=== PATIENT | female | born 1940 | race Caucasian/White ===

== ENCOUNTER 2016-08-11 11:29 | Emergency (ER) | payer MEDICARE, MEDICAID ==
[~2016-08-11] VITALS: Ht 162.6 cm; Wt 68.0 kg
[~2016-08-11 11:29] MED LIST: ALBUTEROL-200 PUFFS/ IH; ALBUTEROL2.5 MG/NEB IN; AMIODARONE 200200 MG PO; AMIODARONE HCL400 MG PO; AMOXICILLIN500 M2 PO; AZITHROMYCIN250 MG PO; AZITHROMYCIN500 MG PO; BRILINTA90 M1 PO; CEFDINIR 300MG300 MG PO; CHEWABLE ASPIRI81 MG PO; CIPRO 500MG TA500 MG PO; DIAZEPAM2 MG PO; DIAZEPAM5 M1 PO; DIAZEPAM5 MG PO; FLEXERIL10 MG PO; HYDROCHLOROTHIA25 M1 PO; IBU-8800 MG PO; KEFLEX 500MG.500 MG PO; LIPITOR80 MG PO; LISINOPRIL 20MG20 MG PO; LODINE400 MG PO; LORTAB 5/500 501 TAB PO; MEDROL 4MG. DOSE4 MG PO; NORVASC 10MG. T10 MG PO; PREDNISONE 20MG20 MG PO; PREDNISONE 5MG.5 MG PO; PROAIR HFA0.09 MG/AC IH; SEPTRA DS 800 M1 TAB PO; STERAPRED DS10 MG PO; TAGAMET PO; TESSALON PERLE100 M1 PO; TESSALON PERLE100 MG PO; TUSSIONEX PENN115 ML PO; ULTRAM 50 MG TA50 MG PO; XARELTO20 MG PO; ZITHROMAX Z PA250 MG PO; ZITHROMAX Z-PA250 M2 PO; ZYRTEC 10MG TAB10 MG PO; ZYRTEC10 MG PO; [UNRECOGNIZED DRUG - OTHER] PO
--- NOTE | 2016-08-11 11:39 | Emergency Room Report ---
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 N Clinical Suspician of Infection? N Mental Status: 1 - Regular (Normal Baseline) Sepsis Risk:Low Sepsis Risk Have you (or family members/close friends) recently traveled outside the [place]? N If Yes, where/when: Have you had exposure to infectious disease within the past month? N TB? Other? Specify: Comment The patient states she's been sick for 3-4 days. She has a nonproductive cough and congestion. She feels short of air. She has chest pain in her anterior chest which she describes as a soreness. She thinks it is just sore from "inflammation " but she says the last time that she thought that she was diagnosed with a heart attack. This was about 6 months ago when she received a cardiac stent. At that time she also was diagnosed with a lung nodule and has since had a RIGHT upper lobectomy. She also has a prior history of having one half of her LEFT lung removed years ago for lung cancer. Also has a history of a fib. Ilnness started with rhinorrhea, nosebleeds, sore throat, cough. Chest has been sore 3-4 days. ALLERGIES Coded Allergies: aspirin (NA-NAUSEA/VOMITING--- STATES COATED PILLS ARE OKAY 06/07/16) levofloxacin (From LEVAQUIN) (MAKES SICK 06/07/16) tetracycline (SWELLING, ITCHING 06/07/16) Home Medications Active Scripts CEFDINIR (Cefdinir) 300 MG PO BID #20 CAP Prov: 06/07/16 Diazepam (Diazepam 5MG) 5 MG PO BIDP PRN ANXIETY #60 TAB Ref 2 Prov: 03/31/16 Rivaroxaban (Xarelto) 20 MG PO DAILY #30 TAB Ref 11 Prov: 03/31/16 Reported Medications LISINOPRIL (Lisinopril) 20 MG PO BID Cetirizine Hcl (All Day Allergy) 10 MG PO DAILY Atorvastatin Calcium (Atorvastatin) 80 MG PO QHS Ticagrelor (Brilinta) 90 MG PO BID AMLODIPINE BESYLATE (Norvasc) 10 MG PO DAILY Amiodarone Hcl (Amiodarone 200MG) 200 MG PO BID Albuterol Sulfate (Proair Hfa) 1 PUFF IH Q6HP PRN ASTHMA #85 History Medical History General CAD? Yes Angina: No AL: No Hypertension? Yes Hyperlipidemia? No CHF? No DVT? No PE? No COPD? Yes Asthma? Yes Anemia? No GERD? Yes Gastric ulcers? No GI Bleed? No Hernia? No Thyroid Problems? No Hypothyroidism? No CVA? No Seizures? No Diabetes? No Renal Insuffiency? No End Stage Renal Disease? No UTI? No Stones? No BPH? No GB Disease: Yes Nephritic Syndrome? No Asplenia? No Hepatitis? No Sickle Cell Disease? No Arthritis? Yes Migraines? No Cataracts? No Glaucoma? No MRSA? No HIV? No TB? No Anxiety? No Depression? No Cancer? Yes Site: LUNG More? No Immunization Hx DT/Tetanus 1-4 YRS Flu THIS YR Pneumonia Received In Past Surgical Hx Previous Surgery?Y D & C CYST REMOVAL 08/03 LEFT LUNG REMOVE GALLBLADDER LEFT ARM SURGERY-METAL PL HEART STENTS 12/15 RIGHT UPPER LOBECTOMY Family History Family Hx Diabetes Yes CAD No Hypertension No Hyperlipidemia No Cancer Yes TB No Social History Smoking Hx Smoker: Former Smoker Tobacco: No Type Cigarettes Packs/day N/A Alcohol Alcohol: No Review of Systems All Other Systems Reviewed and Negative Constitutional denies fever ENT nose discharge, epistaxis, throat pain. Respiratory cough, shortness of breath Cardiovascular chest pain Physical Exam Vital Signs Vital Signs Date Time Temp Pulse Resp B/P Pulse O2 O2 Flow FiO2 Ox Delivery Rate 08/11 1132 98.5 74 20 157/64 97 General Appearance normal appearance, WD/WN Eye Exam - bilateral eye normal exam, bilateral eye PERRL, bilateral eye EOMI Ear, Nose, Throat hearing grossly normal, normal ENT inspection Neck normal inspection, non-tender, supple, full range of motion Respiratory Status Yes: trachea midline, chest symmetrical, non tender chest, non productive cough. No: respiratory distress. Lung Sounds bilateral: normal breath sounds, lungs clear. Cardiovascular normal exam, regular rate/rhythm, no peripheral edema, no gallop, no JVD, no murmur, no rub, normal peripheral pulses Peripheral Pulses Pulses normal Yes Gastrointestinal normal bowel sounds, normal exam, non tender, soft, no organomegaly Back normal inspection, no CVA tenderness, no vertebral tenderness Extremities non-tender, normal range of motion, normal inspection Neurologic alert, stringer up soldering machine II-XII nml as tested, normal exam, oriented x 3 Mental status normal mood/affect Skin intact, normal color, warm/dry Medical Decision Making LABS/Meds/Orders Pt receiving controlled substance in ED? No Results/Orders Laboratory Tests 08/11/16 1200: Sodium 143, Potassium 3.5, Chloride 106, Carbon Dioxide 28, BUN 11, Creatinine 1.0, Estimated Creat Clear 52, Estimated GFR (MDRD) 54 L, Glucose 144 H, Calcium 8.7, Total Bilirubin 0.4, AST 19, ALT 26, Alkaline Phosphatase 132 H, Troponin I < 0.02, Total Protein 7.2, Albumin 3.9, Globulin 3.3 H, Albumin/ Globulin Ratio 1.2, WBC 6.2, RBC 3.84 L, Hgb 11.0 L, Hct 34.2 L, MCV 89.1, RDW 15.7, Plt Count 234, MPV 9.4, Gran % 73.9, Gran # 4.6, Lymphocytes % 19.2, Monocytes % 5.3, Eosinophils % 1.1, Basophils % 0.5, Lymphocytes # 1.2, Monocytes # 0.3, Eosinophils # 0.1, Basophils # 0.0, PUBS MCHC 32.3, MCH 28.8 Current Medication Orders Sig/Mary Start time Last Medication Dose Route Stop Time Status Admin Sodium Chloride 10 ML PRN PRN 08/11 1200 AC IV 08/12 1151 Orders Procedure Date/time Status ELECTROCARDIOGRAM REQUEST 08/11 1151 Active IV SALINE LOCK 08/11 1151 Active TROPONIN I 08/11 1151 Complete CBC WITH AUTO DIFF 08/11 1151 Complete CHEM 12 PROFILE 08/11 1151 Complete CHEST(2 VIEWS-NOT PORTABLE) 08/11 1136 Active CM/EKG CM/EKG Comments EKG interpreted by Kevin De La Rosa MD: Rhythm: sinus Rate: 64 [place]: normal Ectopy: none Conduction: Incomplete RIGHT bundle-branch block, prolonged QT interval ST Segment Changes: none T Wave Changes: Nonspecific Q Waves: none No change from prior electrocardiogram No evidence of acute ischemia or injury XRAY/CT/US XRAY/CT/US XRAY chest Comment X-ray interpreted by Kevin De La Rosa M.D.: Volume loss RIGHT lung. No infiltrates seen. Departure Departure Disposition DC Home or Self Care(routine) Clinical Impression Primary Impression: Acute bronchitis Qualifiers: Bronchitis organism: unspecified organism Qualified Code: J20.9 - Acute bronchitis, unspecified Condition STABLE Referrals Gareth HUNTER,A.C. (Family) Patient Instructions DI for Acute Bronchitis Prescriptions Current Visit Scripts Azithromycin (Zithromycin (Z-RADU) 250MG Tab) 250 MG PO DAILY #6 TAB TAKE TWO (2) TABLETS ON DAY 1, THEN ONE (1) TABLET DAY #2 THRU #5 ED Critical Care Critical Care No at [id number]
[2016-08-11 12:09] LABS: LYMPH # 1.2 K/mm3 (0.7-4.5); LYMPH % 19.2 % (10-50.0)
[2016-08-11 12:23] LABS: BUN 11 mg/dL (7-18); GFR (ESTIMATED) 54 ML/MIN (59-)
[2016-08-11] MEDS ORDERED: ZITHROMAX Z PA250 MG PO (12:29)
[2016-08-11 12:34] VITALS: BP 150/64
--- NOTE | 2016-08-11 14:03 | RADIOLOGY REPORT PS360 ---
CHEST(2 VIEWS-NOT PORTABLE) HISTORY: COUGH,SOA COMPARISON: 06/07/2016 FINDINGS: COPD. Elevated right hemidiaphragm. Old left-sided rib fractures. Postsurgical changes left and right perihilar region. No lobar consolidation or collapse. No acute bony anomalies. IMPRESSION: Postsurgical change with COPD, no acute finding..
[2016-10-21] MEDS ORDERED: LEADER OMEPRAZO20 MG PO (06:50)
== END 2016-08-11 12:34 | disposition home or self-care (01) ==
LOC: ER 11:29
PROVIDERS: Emergency Medicine
DX: J20.9 Acute bronchitis, unspecified (principal); Z87.891 Personal history of nicotine dependence; K21.9 Gastro-esophageal reflux disease without esophagitis; I10 Essential (primary) hypertension; I48.91 Unspecified atrial fibrillation; J44.0 Chronic obstructive pulmonary disease with (acute) lower respiratory infection; Z85.118 Personal history of other malignant neoplasm of bronchus and lung

== ENCOUNTER 2017-01-18 09:05 | Emergency (ER) | payer MEDICARE ==
[~2017-01-18] VITALS: Ht 162.6 cm; Wt 70.3 kg
[~2017-01-18 09:05] MED LIST changes: +BACTRIM DS 8001 TA1 PO; +LEADER OMEPRAZO20 MG PO; +PYRIDIUM200 M2 PO
[2017-01-18 09:21] LABS: HEMOGLOBIN 11.8 g/dL (12.2-16.2); LYMPH # 1.6 K/mm3 (0.7-4.5)
--- NOTE | 2017-01-18 09:23 | Emergency Room Report ---
History of Present Illness Time Seen by MD Slater Presenting Problem in Triage Pt arrived:Walked Presenting Problem:PT REPORTS CHEST PAIN X3 DAYS. PT REPORTS SOA WITH PAIN IN CHEST WHEN BREATHING. 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 N Clinical Suspician of Infection? N Mental Status: 1 - Regular (Normal Baseline) Sepsis Risk:Low Sepsis Risk Have you (or family members/close friends) recently traveled outside the [place]? N If Yes, where/when: Have you had exposure to infectious disease within the past month? N TB? Other? Specify: Hx COPD, having pleuritic pain with inspiration for last three days; hx lung cancer from several years ago; no hemoptysis; no cough; no sputum; no calf pain; saw Dr. Price last week and placed on new antihypertensive agent. No syncope or palpitations. ALLERGIES Coded Allergies: aspirin (NA-NAUSEA/VOMITING--- STATES COATED PILLS ARE OKAY 06/07/16) levofloxacin (From LEVAQUIN) (MAKES SICK 06/07/16) tetracycline (SWELLING, ITCHING 06/07/16) Home Medications Active Scripts SULFAMETHOXAZOLE W/TRIMETHOPRI (Bactrim Ds Tab) 1 TABLET PO BID #10 TAB Prov: 01/14/17 Phenazopyridine HCl (Pyridium) 200 MG PO TIDP PRN dysuria #6 TAB Prov: 01/14/17 Diazepam (Diazepam 5MG) 5 MG PO BIDP PRN ANXIETY #60 TAB Ref 2 Prov: 03/31/16 Omeprazole 20 MG PO DAILY #30 TCP Ref 2 Prov: 10/21/16 Reported Medications Albuterol Sulfate (Proair Hfa) 1-2 PUFF IH Q6HP PRN ASTHMA #85 GM Amiodarone Hcl (Amiodarone 200MG) 200 MG PO DAILY LISINOPRIL (Lisinopril) 20 MG PO BID Atorvastatin Calcium (Atorvastatin) 80 MG PO QHS AMLODIPINE BESYLATE (Norvasc) 10 MG PO DAILY History Medical History General CAD? Yes Angina: No MA: Yes Hypertension? Yes Hyperlipidemia? No CHF? No DVT? No PE? No COPD? Yes Asthma? Yes Anemia? Yes GERD? Yes Gastric ulcers? No GI Bleed? No Hernia? No Thyroid Problems? No Hypothyroidism? No CVA? No Seizures? No Diabetes? No Renal Insuffiency? No End Stage Renal Disease? No UTI? No Stones? No BPH? No GB Disease: Yes Nephritic Syndrome? No Asplenia? No Hepatitis? No Sickle Cell Disease? No Arthritis? Yes Migraines? No Cataracts? No Glaucoma? No MRSA? No HIV? No TB? No Anxiety? No Depression? No Cancer? Yes Site: LUNG More? Yes Additional hx: afib Immunization Hx DT/Tetanus Unknown Flu 2015-FSN Pneumonia Received In Past Surgical Hx Previous Surgery?Y D & C CYST REMOVAL 08/03 LEFT LUNG REMOVE GALLBLADDER LEFT ARM SURGERY-METAL PL HEART STENTS 12/15 RIGHT UPPER LOBECTOMY Family History Family Hx Diabetes Yes CAD Yes Hypertension Yes Hyperlipidemia Yes Cancer No TB No Social History Smoking Hx Smoker: Former Smoker Tobacco: No Packs/day < 1 Pack Alcohol Alcohol: No Review of Systems All Other Systems Reviewed and Negative Respiratory see HPI Cardiovascular see HPI Physical Exam Vital Signs Vital Signs Date Time Temp Pulse Resp B/P Pulse O2 O2 Flow FiO2 Ox Delivery Rate 01/18 0906 60 18 116/73 98 2 01/18 0905 97 General Appearance normal appearance, WD/WN, no apparent distress Eye Exam - bilateral eye normal exam, bilateral eye PERRL, bilateral eye EOMI Neck normal inspection, non-tender, supple, full range of motion Respiratory Status Yes: trachea midline, chest symmetrical, non tender chest, tender on palpation ( latissimus R pos trigger point). No: respiratory distress, use of accessory muscles, pain on inspiration, pain on expiration, productive cough, non productive cough. Lung Sounds bilateral: normal breath sounds, lungs clear. Cardiovascular normal exam, regular rate/rhythm, no peripheral edema, no gallop, no JVD, no murmur, no rub, normal peripheral pulses Gastrointestinal normal bowel sounds, normal exam, non tender, soft, no organomegaly, no pulsatile mass, no guarding, no rebound Extremities non-tender, normal range of motion, normal inspection, normal capillary refill, no calf tenderness, no pedal edema Neurologic alert, normal exam, no motor/sensory deficits, oriented x 3 Skin intact, normal color Medical Decision Making LABS/Meds/Orders Pt receiving controlled substance in ED? No Results/Orders Laboratory Tests 01/18/17 0900: Sodium 142, Potassium 4.1, Chloride 105, Carbon Dioxide 29, BUN 16, Creatinine 1.2 H, Estimated Creat Clear 45 L, Estimated GFR (MDRD) 44 L, Glucose 106, Calcium 9.3, Total Bilirubin 0.6, AST 32, ALT 56, Alkaline Phosphatase 134 H, Creatine Kinase 109, CK and CKMB Interp 0.7, Troponin I < 0.02, Total Protein 7.3, Albumin 4.2, Globulin 3.1, Albumin/Globulin Ratio 1.4, D-Dimer 156, WBC 6.4 , RBC 3.88 L, Hgb 11.8 L, Hct 36.6 L, MCV 94.2, RDW 14.9, Plt Count 224, MPV 7.5, Gran % 66.6, Gran # 4.3, Lymphocytes % 25.0, Monocytes % 6.8, Eosinophils % 1.4, Basophils % 0.3, Lymphocytes # 1.6, Monocytes # 0.4, Eosinophils # 0.1, Basophils # 0.0, PUBS MCHC 32.3, MCH 30.4 Current Medication Orders Sig/Mary Start time Last Medication Dose Route Stop Time Status Admin Acetaminophen 650 MG ONCE ONE 01/18 1015 AC PO 01/18 1016 Acetaminophen 650 MG ONCE ONE 01/18 0945 DC PO 01/18 0946 Nitroglycerin 0.4 MG .Q5 MIN PRN 01/18 0915 AC SL Sodium Chloride 10 ML PRN PRN 01/18 0915 AC IV 01/19 0915 Orders Procedure Date/time Status D-DIMER 01/18 0928 Complete ELECTROCARDIOGRAM REQUEST 01/18 0916 Active IV SALINE LOCK 01/18 0916 Active OXYGEN PER NURSE 01/18 0916 Active EXTERMINATION SUPERVISOR 01/18 0916 Active TROPONIN I 01/18 0916 Complete CPK 01/18 0916 Complete COMPLETE METABOLIC PANEL 01/18 0916 Complete CKMB 01/18 0916 Complete CBC WITH AUTO DIFF 01/18 0916 Complete 12 LEAD EKG-FRANKI (INITIAL) 01/18 0915 Active CM/EKG CM/EKG EKG rate, NSR, rhythm, no evid. of ischemic chgs, no ectopy, normal QRS, normal WI, normal EKG, compared w/(date of old) (01/14/17 no chg old Q ant) XRAY/CT/US XRAY/CT/US Xray Results chronic changes seen prior 07/19/16 no acute findings Pulmonary Embolism Score WELL'S CRITERIA FOR PE WELL'S CRITERIA FOR PE Response Value Clinical signs/symptoms of DVT NO 0 PE is #1 diagnosis or equally likely NO 0 Heart rate is > 100 NO 0 Immobile at least 3 days, or surgery in past 4 wks NO 0 Previously, obj. diagnosed PE or DVT NO 0 Hemoptysis NO 0 Malignancy w/Rx within 6mo, or palliative NO 0 Total 0 Patient's PE Risk <1pt=LO RISK (<3%) Departure Departure Time of Disposition 1012 Disposition DC Home or Self Care(routine) Clinical Impression Primary Impression: Pleurisy Condition STABLE Referrals Porfirio Trujillo MD (Family) Patient Instructions Pleurisy Additional Instructions See Dr. Trujillo in one day for follow up, Tylenol as needed. Discharge Counseling Counseled pt/family regarding diagnosis, test results, medications/RX, home care, follow up needs ED Critical Care Critical Care No at 1013
[2017-01-18 09:46] LABS: BUN 16 mg/dL (7-18)
[2017-01-18 09:48] LABS: GFR (ESTIMATED) 44 ML/MIN (59-)
--- OUTSIDE RECORDS SUMMARY | 2017-01-18 10:16 | External Medical Summary Rpt ---
Author Author , Organization [employer] Address Unknown Phone Unavailable Care Team Providers Care Storage Garage Manager Name Role Phone SLAVA EDW, Unavailable Unavailable SLAVA EDW ISLAM Unavailable Unavailable [facility]ARDI[facility]ACIC SURGI, ISL[facility] Unavailable Unavailable MEDICAL GROUP, [facility] ISLAM PULMONARY & Unavailable Unavailable CRITICAL, [facility] BENSEMA MAR, BENSEMA Unavailable Unavailable MAR NAZ CHILDS Unavailable Unavailable PANKAJ CHILDS, Unavailable Unavailable PANKAJ CHILDS [facility] Unavailable [facility]available [facility], [facility] BARRERA, BARRERA Unavailable Unavailable BARRERA ALL, BARERRA ALL Unavailable Unavailable BREEDING SEAN, Unavailable Unavailable BREEDING SEAN [facility] Unavailable Unavailable SERVICE, [facility] C PAULO SAMAYOA MD Unavailable Unavailable PSC, C PAULO SAMAYOA MD PSC ADRIANNE ESCALANTE, Unavailable Unavailable ADRIANNE ESCALANTE [facility] Unavailable Unavailable ANESTHESIA, [facility] Unavailable Unavailable [facility]OC, [facility] CLIF MENEZES Unavailable Unavailable CHIPPS KRIS & Unavailable Unavailable DUBILIER, [facility] OF Unavailable Unavailable [facility], [facility] Johan ARANDA COOPER, Unavailable Unavailable Johan FRANCOXIOMY, XIOMY Unavailable Unavailable XIOMY ARLETTE, Unavailable Unavailable XIOMY ARLETTE XIOMY, MAURY, Unavailable Unavailable XIOMY, MAURY UMBERTO GAR, UMBERTO GAR Unavailable Unavailable [facility] Unavailable Unavailable [facility], [facility] [place] [facility] Unavailable [place]available [place] ALLAN HEREDIA MD, Unavailable Unavailable ALLAN HEREDIA MD BARRERA MAR, BARRERA MAR Unavailable Unavailable JR ROJAS FULLER, Unavailable Unavailable ANKUR DANIELSON Unavailable Unavailable ANKUR BOY, ANKUR Unavailable Unavailable BOY ANTONI AQUINO, Unavailable Unavailable ANTONI AQUINO [facility] Unavailable Unavailable [place], [facility] Unavailable Unavailable [place], [facility] Unavailable Unavailable INC, [facility] Unavailable Unavailable HOSPITAL P, [facility] DELMIS LÓPEZ HARVEY, Unavailable Unavailable DELMIS DAMON JAVIER, DAMON JAVIER Unavailable Unavailable DAMON JAVIER, DAMON JAVIER Unavailable Unavailable DAMON, TIM A, Unavailable Unavailable DAMON, TIM A [facility], Unavailable Unavailable [facility] NANI SILVIA, Unavailable Unavailable NANI SILVIA ROBIN, ROBIN Unavailable Unavailable IMAM MOH, IMAM MOH Unavailable Unavailable JAVON CESAR, JAVON Unavailable Unavailable CESAR TERRELL ELYSSA, TERRELL Unavailable Unavailable ELYSSA [facility], Unavailable Unavailable [facility] FRANKI ROSS, FRANKI ROSS Unavailable Unavailable SHAWN DOAN E, Unavailable Unavailable SHAWN DOAN E Capri Buckley MD, Unavailable Unavailable Capri Buckley MD [facility] Unavailable Unavailable SERVICES, [facility], Unavailable Unavailable [facility], Unavailable Unavailable PLL[facility], [facility] Unavailable Unavailable LAB, [facility] Unavailable Unavailable LAB, [facility] PICKLESIMER JR LAVELL, Unavailable Unavailable PICKLESIMER JR LAVELL MAURICE, MAURICE Unavailable Unavailable RENUSCH, RENUSCH Unavailable Unavailable RICE THO, RICE THO Unavailable Unavailable SCHULSTAD SAMANTHA, Unavailable Unavailable SCHULSTAD SAMANTHA MELANIE, MELANIE Unavailable Unavailable MELANIE MAT, Unavailable Unavailable MELANIE MAT GABBY MCKEON Unavailable Unavailable OSULLIVAN ADA, OSULLIVAN ADA Unavailable Unavailable SOKAN BAB, SOKAN BAB Unavailable Unavailable SOKAN, TRISTA O, Unavailable Unavailable SOKAN, TRISTA O [facility] Un[facility], [facility] Unavailable Un[facility], [facility] Unavailable Unavailable [facility], [facility] Unavailable Unavailable [facility], [facility] Unavailable Unavailable [facility], [facility] SOTINGEANU PEYTON, Unavailable Unavailable SOTINGEANU PEYTON CHUNG DON, Unavailable Unavailable CHUNG DON CHUNG DON, Unavailable Unavailable CHUNG DON CHUNG, DON R, Unavailable Unavailable JULIET DON R KERI GUERRERO, Unavailable Unavailable NINI SWANSON III, Unavailable Unavailable NINI ARIZMENDI III [facility], Unavailable Unavailable [facility] Purpose Continuity of Care Document - 08-18-2007 through 2016 Problems Code Diagnosis DOS Provider Status 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 [facility]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 D62 ACUTE 11-10-2016 [facility] POSTHEMORRH PHYSICIANS AGIC ANEMIA GROUP I4891 UNSPECIFIED 11-10-2016 [facility] ATRIAL PHYSICIANS FIBRILLATIO GROUP N K921 MELENA 11-10-2016 [facility] PHYSICIANS GROUP Z1211 ENCOUNTER 11-10-2016 [facility] SCREENING PHYSICIANS MALIGNANT GROUP NEOPLASM OF COLON K2990 GASTRODUODE 10-28-2016 [facility] NITIS PHYSICIANS UNSPECIFIED GROUP WITHOUT BLEEDING R911 SOLITARY 10-27-2016 [facility] PULMONARY HOME NODULE MEDICAL EQUIPME K922 GASTROINTES 10-21-2016 [place] [facility] HEMORRHAGE IMAGING ASS UNSPECIFIED I480 PAROXYSMAL 10-20-2016 [facility] P N Z7901 FDC 10-20-2016 [facility] CURRENT USE [facility] P ANTICOAGULA NTS Z955 PRESENCE OF 10-20-2016 [facility] P IMPLANT & GRAFT 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, ANEMIA SEC PLLC TO BLOOD LOSS CHRONIC 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 K2980 DUODENITIS 10-17-2016 [facility] WITHOUT [facility] BLEEDING INC K449 DIAPHRAGMAT 10-17-2016 [facility] HERNIA [facility] W/O INC OBSTRUCTION OR GANGRENE K5730 DIVERTICULO 10-17-2016 [place] SIS LG MEDICAL INTEST W/O IMAGING ASS PERF/ABSC W/O BLEED R109 UNSPECIFIED 10-17-2016 [place] ABDOMINAL MEDICAL PAIN IMAGING ASS R0602 SHORTNESS 09-02-2016 [facility] OF BREATH [facility] INC R079 CHEST PAIN 09-02-2016 [facility] UNSPECIFIED [facility] INC E785 HYPERLIPIDE 08-24-2016 [facility] MORENA PHYSICIANS UNSPECIFIED GROUP I10 ESSENTIAL 08-24-2016 [facility] PRIMARY PHYSICIANS HYPERTENSIO GROUP N J449 CHRONIC 08-24-2016 [facility] OBSTRUCTIVE PHYSICIANS PULMONARY GROUP DISEASE UNS C3411 MALIGNANT 08-22-2016 [facility] NEOPLASM [facility] UPPER LOBE INC RT BRONCHUS/DELFINA NG R072 PRECORDIAL 08-22-2016 [facility] PAIN PHYSICIANS, PLLC [id number] PERSONAL HX 08-22-2016 [facility] MEDICAL NEOPLASM IMAGING ASS BRONCHUS & LUNG 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 LUNG MEDICAL GROUP J209 ACUTE 08-11-2016 [facility] BRONCHITIS PHYSICIANS, UNSPECIFIED PLLC J440 COPD WITH 08-11-2016 [facility] ACUTE LOWER [facility] INC RESPIRATORY INFECTION K219 GASTRO-ESOP 08-11-2016 [facility] REFLUX [facility] P WITHOUT ESOPHAGITIS R05 COUGH 08-11-2016 [place] [facility] I119 HYPERTENSIV 07-14-2016 [facility] E HEART PHYSICIANS DISEASE GROUP WITHOUT HEART FAILURE J439 EMPHYSEMA 07-09-2016 [place] UNSPECIFIED MEDICAL IMAGING ASS D649 ANEMIA 06-07-2016 [facility] UNSPECIFIED PHYSICIANS, PLLC E876 HYPOKALEMIA 06-07-2016 [facility] N19 UNSPECIFIED 06-07-2016 [facility] FAILURE INC N3001 ACUTE 06-07-2016 [facility] CYSTITIS PHYSICIANS, WITH PLLC HEMATURIA R319 HEMATURIA 06-07-2016 [facility] UNSPECIFIED PHYSICIANS, PLLC 372.00 372.00 [facility] 491.22 491.22 08-15-2013 [facility] CHRONIC [facility] BRONCHITIS WITH ACUTE BRONCHITIS 401.9 401.9 11-10-2012 [facility] NOS Hospital 461.9 461.9 ACUTE 11-10-2012 [place] SINUSITIS [facility] Hospital 496 496 CHR 11-10-2012 [facility] OBSTRUCT Hospital NEC 4659 ACUTE URIS 11-08-2010 [facility] OF DON UNSPECIFIED SITE 4660 ACUTE 11-08-2010 [facility] BRONCHITIS DON 08523 OTHER 09-30-2010 [facility] SPECIFIED DON DISORDERS OF URINARY TRACT 19283 CHRONIC 09-30-2010 [facility] FATIGUE DON SYNDROME 15646 ASTHMA, 08-26-2010 [facility] UNSPECIFIED HOME MED , EQUIP. L UNSPECIFIED STATUS 462 ACUTE 08-23-2010 [facility] PHARYNGITIS DON 7862 COUGH 08-23-2010 [facility] DON V5831 ENCOUNTER 07-23-2010 [facility] CHANGE/CORAZON DON OMAR SURGICAL WOUND DRESSING 4019 UNSPECIFIED 07-17-2010 C PAULO ELLIS MD PSC N 81497 CALCU 07-17-2010 PATHOLOGY & [facility] CYTOLOGY W/OTH LAB CHOLECYST W/O MENTION OBST 92267 CHOLECYSTIT 07-17-2010 COMMUNITY IS, ANESTH OF UNSPECIFIED THE BLUE 1629 MALIGNANT 07-16-2010 [facility]OP[facility]M [facility] BRONCHUS&DELFINA INC NG UNSPEC SITE 95939 CALCU 07-16-2010 [facility] W/ACUT INC CHOLCYST W/O MENTION OBST 83664 CALCU 07-16-2010 [place] [facility] MEDICAL W/O MENTION IMAGING ASS CHOLECYST/O BST 5758 OTHER 07-16-2010 [facility] SPECIFIED EMERGENCY DISORDER OF SERVICES GALLBLADDER V5869 LONG-TERM 07-16-2010 [facility] (CURRENT) [facility] USE OF INC OTHER MEDICATIONS V0382 NEED PROPH 06-23-2010 [facility] VACCINATION DON AGAINST STREP PNEUMONE 1623 MALIGNANT 06-10-2010 [facility] NEOPLASM KRIS & UPPER LOBE DUBILIER BRONCHUS OR LUNG 7866 SWELLING, 06-10-2010 ISL[facility] MASS, OR CARDIOTHORA LUMP IN CIC SURGI CHEST 7869 OTH 06-10-2010 [facility] [place] SYMPTOMS ANESTHESIA INVOLVING RESPIRATORY SYSTEM&CHES T [address] OTHER 06-09-2010 [facility] DISEASES OF RADIOLOGY LUNG NOT ASSOC ELSEWHERE CLASSIFIED 5601 PARALYTIC 06-09-2010 [facility] ILEUS RADIOLOGY ASSOC 28264 SHORTNESS 06-09-2010 ISL[facility] OF BREATH PULMONARY & CRITICAL 48101 ABNORMAL 06-09-2010 [facility] ARTERIAL RADIOLOGY BLOOD GASES ASSOC V5882 ENCOUNTER 06-09-2010 [facility] FITTING&ADJ RADIOLOGY ASSOC NON-VASCULA R CATHETER NEC V0481 NEED 05-06-2010 [facility] PROPHYLACTI DON C VACCINATION &INOCULATIO N FLU V7612 OTHER 04-25-2010 [place] SCREENING MEDICAL MAMMOGRAM IMAGING ASS 6228 OTHER 04-11-2010 PATHOLOGY & SPECIFIED CYTOLOGY NONINFLAMMA LAB TORY DISORDER CERVIX V1582 PERS HX 04-11-2010 [facility] CO TOBACCO USE [facility]ALTH V1589 OTH SPEC 04-11-2010 PATHOLOGY & PERS HX CYTOLOGY PRESENTING LAB HAZARDS HEALTH OT V700 ROUTINE 04-11-2010 [facility] EXAM@HEALTH CARE FACL V7231 ROUTINE 04-11-2010 [facility] EXAMINATION V7643 SCREENING 04-11-2010 [facility] NEOPLASM OF THE SKIN 2357 NEOPLASM 03-26-2010 [facility] BEHAVIOR INC TRACH BRONCHUS&DELFINA NG 2875 UNSPECIFIED 03-25-2010 [facility] THROMBOCYTO INC PENIA 490 BRONCHITIS 03-19-2010 [facility] NOT EMERGENCY SPECIFIED SERVICES ACUTE OR CHRONIC 7336 TIETZES 03-19-2010 [place] DISEASE EMERGENCY SERVICES 9221 CONTUSION 03-19-2010 [facility] CHEST MEDICAL WALL IMAGING ASS 4618 OTHER ACUTE 03-17-2010 [facility] SINUSITIS DON 33983 SPRAIN AND 01-01-2010 [facility], STRAIN OF DON R UNSPECIFIED SITE OF FOOT 49146 BORDERLINE 12-23-2009 DAMON JAVIER GLAUC OPEN ANGLE BL FINDINGS LOW RSK 41237 NUCLEAR 12-23-2009 DAMON JAVIER SCLEROSIS 68559 UNSPECIFIED 12-23-2009 [facility], SITE OF DON R ANKLE SPRAIN AND STRAIN 17697 PAIN IN 12-21-2009 [place] JOINT, MEDICAL ANKLE AND IMAGING FOOT ASSOCIATES 8260 CLOSED 12-21-2009 [facility] FRACTURE OF EMERGENCY ONE OR SERVICES MORE ASSOCIATES PHALANGES OF FOOT E8859 FALL FROM 12-21-2009 [facility] OTHER EMERGENCY SLIPPING SERVICES TRIPPING OR ASSOCIATES STUMBLING 4610 ACUTE 11-01-2009 [facility], MAXILLARY DON R SINUSITIS 95917 SPASM OF 09-10-2009 [facility], MUSCLE DON R 28188 CHEST PAIN 09-07-2009 [facility] UNSPECIFIED [facility] PROF SERV 8408 SPRAIN&STRA 09-07-2009 [facility] IN OTH SPEC [facility] SHOULDER&UP PROF SERV PER ARM 8409 SPRAIN&STRA 09-07-2009 [facility] IN UNSPEC EMERGENCY SITE SERVICES SHOULDER&UP ASSOCIATES PER ARM 2729 UNSPECIFIED 05-21-2009 [facility] DISORDER HEALTH OF LIPOID CENTRAL METABOLISM BANK ACCT V771 SCREENING 05-21-2009 [facility] FOR HEALTH DIABETES CENTRAL MELLITUS BANK ACCT V762 SCREENING 04-23-2009 PATHOLOGY & FOR CYTOLOGY MALIGNANT LAB NEOPLASM OF THE CERVIX 7231 CERVICALGIA 04-11-2009 [facility] STAUFFER 07717 PAIN IN 04-10-2009 JULIET, JOINT, DON R SHOULDER REGION 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JULEIT, 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 73522 PNEUMONIA 03-04-2009 [facility], DUE TO DON R OTHER SPECIFIED BACTERIA 80187 OTHER CHEST 02-23-2009 [facility] EMERGENCY SERVICES [facility]OCIATES 88800 OSTEOARTHRO 01-11-2009 JULIET S UNSPEC DON R GEN/LOC OTH SPEC SITES 62195 DEGEN 01-11-2009 JULIET, 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 2720 PURE 11-09-2008 JULIET HYPERCHOLES DON R TEROLEMIA 24950 LUMP OR 09-28-2008 [facility] [place] IN [facility] BREAST INC 93901 UNSPECIFIED 09-28-2008 [place] ABNORMAL MEDICAL MAMMOGRAM IMAGING ASSOCIATES 7242 LUMBAGO 07-20-2008 BERNY CHUNG R 27144 DISORDER OF 07-20-2008 JULIET BONE AND DON R CARTILAGE UNSPECIFIED 8472 LUMBAR 07-06-2008 JULIET SPRAIN AND DON R STRAIN 98043 UNSPECIFIED 06-20-2008 BERNY CHUNG R CONJUNCTIVI TIS 4779 ALLERGIC 04-07-2008 JUL[facility]ET RHINITIS DON R CAUSE UNSPECIFIED 79968 DIAB W/OTH 03-06-2008 [facility] COMA TYPE HEALTH II/UNS NOT [facility] STATED BANK ACCT UNCNTRL 4270 PAROXYSMAL 02-12-2008 [facility] SUPRAVENTRI H CULAR CARDIOLOGY TACHYCARDIA ASSOC 22306 SINOATRIAL 02-11-2008 [facility]DE [facility] PROF SERV 94247 OTHER 02-11-2008 [facility] SPECIFIED AMBULANCE CARDIAC SERVICE DYSRHYTHMIA S 12067 ABNORMAL 02-11-2008 [facility] COAGULATION [facility] PROF SERV 5997 HEMATURIA 10-21-2007 BERNY CHUNG R 23098 OSTEOARTHRO 10-21-2007 JULIET S INVLV MX DON R SITES BUT NOT SPEC GEN 7881 DYSURIA 09-23-2007 BERNY CH[facility]G D50.0 IRON DEFICIENCY ANEMIA SECONDARY TO BLOOD LOSS (CHRONIC) K92.2 GASTROINTES TINAL HEMORRHAGE, UNSPECIFIED Allergies, Adverse Reactions, Alerts Type Drug Allergy Propensity to adverse reactions to drug Adverse Reaction to Substance Substance Reaction Severity Tetracycline Unknown Unknown Levofloxacin MAKES PT SICK. Unknown Aspirin VOMITING Unknown Medications Na ND Rx Da Fi Fi Am Da Di Ph RX Ph St me C No te ll ll ou ys ag ar # ys at rm s nt no ma ic us Or Da si cy ia de te s n re d BE 57 01 0 No NZ 66 -1 ON 40 4- Lo AT 13 20 ng AT 38 14 er E 8 10 Ac 0 ti MG ve CA PS UL E CE 62 01 0 No PH 75 -1 AL 60 4- Lo EX 29 20 ng IN 48 14 er 8 50 Ac 0 ti MG ve CA PS UL E ME 00 01 0 No ED 05 -1 NI 40 4- Lo SO 01 20 ng NE 82 14 er 0 20 Ac ti MG ve TA BL ET CHRIS 24 01 0 No LF 20 -1 AC 80 4- Lo ET 67 20 ng AM 00 14 er ID 4 E Ac 10 ti % ve EY E DR OP S MA 00 11 0 No PA 90 -0 P 41 5- Lo 32 98 20 ng 5 26 13 er MG 1 Ac TA ti BL ve ET AC 51 06 0 No ET 07 -1 AM 90 1- Lo IN 16 20 ng OP 19 13 er HE 9H N Ac W/ ti CO ve DE IN E #3 TA K De 00 06 0 No xa 51 -1 me 74 1- Lo th 90 20 ng as 12 13 er on 5 e Ac 4M ti G/ ve Ml Sd v Am 00 04 0 No ox 09 -1 ic 33 1- Lo il 10 20 ng li 79 13 er n 3 25 Ac 0M ti G ve Ca ps ul e ME 00 08 08 0 [address] Ac OM 60 -1 -[address] 74 EP ti ET 31 7- 7- 00 SI 47 HE ve SIDDIQUI 58 20 20 0 DE NS ZI 85 10 10 NE 8 PH DO AR N VC MA R -C CY OD EI OF NE CY SY NT RU HI P AN A ME 00 03 03 [address] Ac OM 60 -1 -[address] 82 EP ti ET 31 0- 6- 00 SI 05 HE ve SIDDIQUI 58 20 20 0 DE NS ZI 85 09 09 NE 8 PH DO AR N VC MA R -C CY OD EI OF NE CY NT SY HI RU AN P A Immunization Name Date Route CVX Reacti Commen Provid Is Given on t er Refuse d PPSV23 STEPHE No 2009 NS DON VACCIN E 2 YRS OR OLDER FOR SUBQ/I M USE IIV3 STEPHE No VACCIN 2009 NS DON E SPLIT VIRUS 0.5 ML DOSAGE IM USE IIV3 STEPHE No VACCIN 2008 NS, E DON R SPLIT VIRUS 0.5 ML DOSAGE IM USE IIV3 STEPHE No VACCIN 2007 NS, E DON R SPLIT VIRUS 0.5 ML DOSAGE IM USE PPSV23 STEPHE No 2007 NS, VACCIN DON R E 2 YRS OR OLDER FOR SUBQ/I M USE Vital Signs 08-15-2013 21:48 Name Value Interpretat Reference Comment ion Range Body 99.4 [degF] Temperature BP 67 mm[Hg] Diastolic BP Systolic 144 mm[Hg] Heart 84 /min Rate/Pulse O2% 96 % Respiratory 20 /min Rate 08-15-2013 21:03 Name Value Interpretat Reference Comment ion Range BP 79 mm[Hg] Diastolic BP Systolic 148 mm[Hg] Heart 69 /min Rate/Pulse O2% 92 % Respiratory 20 /min Rate 06-06-2013 20:17 Name Value Interpretat Reference Comment ion Range Body 99.0 [degF] Temperature BP 63 mm[Hg] Diastolic BP Systolic 141 mm[Hg] Heart 72 /min Rate/Pulse O2% 94 % Respiratory 20 /min Rate 06-06-2013 19:18 Name Value Interpretat Reference Comment ion Range BP 63 mm[Hg] Diastolic BP Systolic 141 mm[Hg] Heart 72 /min Rate/Pulse O2% 94 % Respiratory 20 /min Rate 11-10-2012 16:35 Name Value Interpretat Reference Comment ion Range BP 42 mm[Hg] Diastolic BP Systolic 130 mm[Hg] Heart 69 /min Rate/Pulse O2% 95 % Respiratory 16 /min Rate 11-10-2012 15:34 Name Value Interpretat Reference Comment ion Range BP 55 mm[Hg] Diastolic BP Systolic 124 mm[Hg] Heart 69 /min Rate/Pulse O2% 95 % Respiratory 18 /min Rate Procedures Procedure DOS Code Location Performer Comment INJ J0702 MOISES ROBIN BETAMETHA 7 SONE ORTHOPAED ACETATE & ICS PSC PHOSPHATE 3 MG ARTHROCEN 43920 MOISES ROBIN TESIS 7 ASPIR&/IN ORTHOPAED J MAJOR ICS PSC JT/BURSA W/O US RADIOLOGI 45423 [facility] ROBIN C EXAM 7 KNEE ORTHOPAED COMPLETE ICS PSC 4/MORE VIEWS PRTBLE E0431 [facility] LONG GASEOUS 7 HOME HOME O2 SYS MEDICAL MEDICAL RENT; EQUIPME EQUIPME FLWMTR HUMIDFR&M ASK O2 CONC 1 E1390 [facility] NEGRON 7 HOME HOME 85%/>02 MEDICAL MEDICAL CONC AT EQUIPME [place] [address] [place] TRACT UPR 7 MEDICAL W/SM INT IMAGING W/MULT ASS SERIAL IMAGES EXCISION [id number] [facility] STOMACH 7 [facility] PYLORUS INC INC JEANA/ART OPENING ENDO DX EXCISION [id number] [facility] STOMACH 7 [facility] VIA INC INC NATURAL/A RT OPENING ENDO DX EXCISION [id number] [facility] EG JUNCT 7 [facility] VIA JEANA INC INC ART OPENING ENDO DX EXCISION [id number] [facility] DUODENUM 7 [facility] VIA INC INC JEANA/ART OPENING ENDO DX ECG 40987 T[facility] ROUTINE 7 [facility] W/LEAST P 12 LDS I&[place] [address] [place] IXOMY ABDOMEN & 7 MEDICAL PELVIS IMAGING W/O ASS CONTRAST MATERIAL O2 CONC 1 E1390 [facility] NEGRON 7 HOME HOME 85%/>02 MEDICAL MEDICAL CONC AT EQUIPME EQUIPME PRSC FLW RATE PRTBLE E0431 [facility] LONG GASEOUS 7 HOME HOME O2 SYS MEDICAL MEDICAL RENT; EQUIPME EQUIPME FLWMTR HUMIDFR&M ASK CV STRS 24151 [facility] TST 7 [facility] XERS&/OR INC INC RX CONT ECG TRCG ONLY INJECTION J2785 [facility] 7 [facility] REGADENOS INC INC ON 0.1 MG TECHNETIU A9502 [facility] [place] TC-99M 7 [facility] TETROFOSM INC INC IN DX PER STUDY DOSE MYOCARDIA 19124 [facility] L SPECT 7 [facility] MULTIPLE INC INC STUDIES PRTBLE E0431 [facility]AN[facility] LONG GASEOUS 7 HOME HOME O2 SYS MEDICAL MEDICAL RENT; EQUIPME EQUIPME FLWMTR HUMIDFR&M ASK O2 CONC 1 E1390 [facility] [place] 7 HOME HOME 85%/>02 MEDICAL MEDICAL CONC AT [facility]QUIP[facility] FLW RATE INITIAL [address] [facility] 7 PHYSICIAN CARE/DAY S GROUP 70 MINUTES ECG 80065 TESS CHILDS ROUTINE 7 [facility] W/LEAST P 12 LDS I&R ONLY RADIOLOGI 26609 [facility] C EXAM 7 MEDICAL CHEST 2 IMAGING VIEWS ASS FRONTAL&L ATERAL ECG 12421 [facility]DS ROUTINE 7 [facility] W/LEAST P 12 LDS I&R ONLY ECG 41147 [facility] DOAN JR ROUTINE 7 [facility] W/LEAST P 12 LDS I&R ONLY RADIOLOGI [address]367 [facility] C EXAM 7 MEDICAL CHEST 2 IMAGING VIEWS ASS FRONTAL&[place] [address] [facility] TROPONIN 7 [facility] HOSP QUANTITAT INC INC KEMI BLOOD 04444 [facility] COUNT 7 [facility] HOSP COMPLETE INC INC AUTO&AUTO DIFRNTL WBC ECG 14952 [facility] ROUTINE 7 [facility]OSP ECG INC INC W/LEAST 12 LDS TRCG ONLY W/O I&R COMPREHEN 23575 T[facility] SIVE 7 [facility] METABOLIC INC INC PANEL O2 CONC 1 E1390 [facility] NEGRON 6 HOME HOME 85%/>02 MEDICAL MEDICAL CONC AT EQUIPME EQUIPME [facility] FLW RATE PRTBLE E0431 [facility] [place] GASEOUS 6 HOME HOME O2 SYS MEDICAL MEDICAL RENT; EQUIPME EQUIPME FLWMTR HUMIDFR&M ASK THYROID 80016 [facility] HORM 6 [facility] HOSP UPTK/THYR INC [place] [address] [facility] THYROXINE 6 [facility] TOTAL INC INC COLLECTIO 91280 [facility] N VENOUS 6 [facility] [place] [address] TESS [facility]ESS THYROID 6 [facility] H[facility] STIMULATI INC INC NG HORMONE TSH HEPATIC 29603 [facility] FUNCTION 6 [facility] PANEL INC INC ECG 75338 [facility] ROUTINE 6 [facility] ECG INC INC W/LEAST 12 LDS TRCG ONLY W/O I&R ECG 08307 [facility] MELANIE ROUTINE 6 PHYSICIAN MAT ECG S GROUP W/LEAST 12 LDS I&R ONLY CREATININ 12974 [place] P[facility] E BLOOD 6 [facility] INC INC CT THORAX 05896 [facility] B[facility] ALL W/O 6 [place]ICAL [place] [address] TESS P[facility]O UREA 6 [facility] NITROGEN INC INC QUANTITAT KEMI COLLECTIO 39494 TESS [facility] N VENOUS 6 [facility] BLOOD INC INC VENIPUNCT URE PRTBLE [id number] [facility] GASEOUS 6 HOME HOME O2 SYS MEDICAL MEDICAL RENT; EQUIPME EQUIPME FLWMTR HUMIDFR&M ASK O2 CONC 1 E1390 [facility] DEL PORT 6 HOME HOME 85%/>02 MEDICAL MEDICAL CONC AT EQUIPME EQUIPME PRSC FLW RATE RADIOLOGI 93742 LEEANN BARRERA ALL C 6 MEDICAL EXAMINATI IMAGING [place] [address] [facility] ALL ABDOMEN & 6 MEDICAL PELVIS IMAGING W/O ASS CONTRAST MATERIAL CULTURE 85990 [facility]ESS [facility] BACTERIAL 6 [facility] INC INC QUANTTATI VE COLONY COUNT URINE THROMBOPL 36439 TESS [facility] ASTIN 6 [facility] TIME INC INC PARTIAL PLASMA/WH OLE BLOOD THER 68052 TESS [facility] PROPH/DX 6 [facility] NJX IV INC INC PUSH SINGLE/1S T SBST/DRUG PROTHROMB 38287 [facility] IN TIME 6 [facility] INC INC COMPREHEN 48371 [facility] SIVE 6 [facility] METABOLIC INC INC PANEL URNLS DIP 98036 [facility] STICK/TAB INC INC LET REAGENT AUTO MICROSCOP Y BLOOD 49277 [facility] COUNT 6 [facility] COMPLETE INC INC AUTO&AUTO DIFRNTL WBC NATRIURET 44577 [facility] IC 6 [facility] PEPTIDE INC INC INJECTION J1040 CHUNG CHUNG 1 DON DON METHYLPRE DNISOLONE ACETATE 80 MG ADMN SET A7003 YOUR YOUR SM VOL 1 [facility]AC[facility] PNEUMAT NEBULIZR DISPBL ALBUTEROL J7620 YOUR YOUR TO 2.5 1 PHARMACY PHARMACY [employer] [facility] IPRATROPI UM BROM TO 0.5 MG PHRM Q0513 YOUR YOUR DISPENSIN 1 PHARMACY PHARMACY G [employer] [facility] INHALATIO N RX; PER 30 DAYS URNLS DIP 03835 JULIET CHUNG 1 DON DON STICK/TAB LET RGNT NON-AUTO W/O MICRSCP INJ J0702 JULIET CHUNG BETAMETHA 1 DON DON SONE ACETATE & PHOSPHATE 3 MG ADMN SET A7003 EMRCEDES LONG SM VOL 1 HOME MED HOME MED NONFILTR EQUIP. L EQUIP. L PNEUMAT NEBULIZR DISPBL INJECTION J1040 JULIET CHUNG 1 DON DON METHYLPRE DNISOLONE ACETATE 80 MG PRTBLE E0431 [facility] GASEOUS 1 HOME MED HOME MED O2 SYS EQUIP. L EQUIP. L RENT; FLWMTR HUMIDFR&M ASK O2 CONC 1 E1390 [facility] DEL PORT 1 HOME MED HOME MED 85%/>02 EQUIP. L EQUIP. L CONC AT [facility] FLW RATE PRTBLE E0431 [facility] GASEOUS 0 HOME MED HOME MED O2 SYS EQUIP. L EQUIP. L RENT; FLWMTR HUMIDFR&M ASK O2 CONC 1 E1390 [facility] DEL PORT 0 HOME MED HOME MED 85%/>02 EQUIP. L EQUIP. L CONC AT [facility] FLW RATE BLOOD 12-17-201 20150 [facility] COUNT [facility] COMPLETE INC INC AUTO&AUTO DIFRNTL WBC OBSERVATI 73056 JULIET BLUNTHENS ON CARE 0 DON DON DISCHARGE MANAGEMEN T TX PROC G0238 T[facility] HENDRICKSON IMPRV 0 [facility] RESP INC INC FUNCT NOT G0237 FCE-FCE 15MIN COLLECTIO 58050 [facility] N VENOUS 0 [facility] BLOOD INC INC VENIPUNCT URE COLLECTIO 89591 [facility] N VENOUS 0 [facility] BLOOD INC INC VENIPUNCT URE LEVEL III 21146 PATHOLOGY PATHOLOGY SURG 0 & & PATHOLOGY CYTOLOGY CYTOLOGY LAB LAB GROSS&BOY ROSCOPIC EXAM ANES 08629 COMMUNITY BREEDING INTRAPERI 0 ANESTH SEAN TONEAL OF THE UPPER [place]UE [place] W/[place] [address] [facility] ABDOMINAL 0 MEDICAL ARLETTE REAL IMAGING TIME ASS W/IMAGE LIMITED TX PROC G0238 [facility] IMPRV 0 [facility] RESP INC INC FUNCT NOT G0237 FCE-FCE 15MIN BASIC 01464 [facility] METABOLIC 0 [facility] PANEL INC INC CALCIUM TOTAL BLOOD 90811 [facility] COUNT 0 [facility] COMPLETE INC INC AUTO&AUTO DIFRNTL WBC LAPAROSCO 36428 [facility] PY SURG 0 [facility] CHOLECYST INC INC ECTOMY INITIAL 77082 [facility] EMERGENCY DEPARTMENT CARE/DAY PSC 50 MINUTES THERAPEUT 93106 [facility] IC 0 [facility] INJECTION INC INC IV PUSH EACH NEW DRUG BLOOD 76878 [facility] COUNT 0 [facility] COMPLETE INC INC AUTO&AUTO DIFRNTL WBC INITIAL 86079 JULIET LIRAS OBSERVATI 0 DON DON ON CARE/DAY 50 MINUTES 3D 06852 [facility] RENDERING 0 [facility] INC INC W/INTERP& [place] [address] [facility] AMYLASE 0 [facility] INC INC COMPREHEN 67691 [facility] SIVE 0 [facility] METABOLIC INC INC PANEL THER 45311 T[facility] PROPH/DX 0 [facility] H[facility]P NJX IV INC INC PUSH SINGLE/1S T SBST/[place] [address] [facility] P[facility] LIPASE 0 [facility] INC HOSPITAL G0378 [facility] P[facility] OBSERVATI 0 [facility] [place] [address] [place] XIOMY ABDOMEN 0 MEDICAL ARLETTE W/O IMAGING CONTRAST ASS MATERIAL CT PELVIS 09119 [place] XIOM[place] W/O 0 MEDICAL ARLETT[place] CONTRAST IMAGING MATERIAL ASS RADIOLOGI 93667 ISLAM IMAM MOH C EXAM 0 CARDIOTHO CHEST 2 RACIC VIEWS SURGI FRONTAL&L ATERAL ADMINISTR G0009 JULIET CHUNG ATION OF 0 DON DON PNEUMOCOC KAISER VACCINE PPSV23 75459 JULIET CHUNG VACCINE 2 0 DON DON YRS OR OLDER FOR SUBQ/IM USE PRTBLE E0431 [facility] GASEOUS 0 HOME MED HOME MED O2 SYS EQUIP. L EQUIP. L RENT; FLWMTR HUMIDFR&M ASK O2 CONC 1 E1390 [facility] DEL PORT 0 HOME MED HOME MED 85%/>02 EQUIP. L EQUIP. L CONC AT [facility] FLW RATE RADIOLOGI 27781 NEMO SHI ADA C EXAM 0 RADIOLOGY CHEST 2 ASSOC VIEWS FRONTAL&L ATERAL RADIOLOGI 39002 NEMO BARRERA MAR C 0 RADIOLOGY EXAMINATI ASSOC ON CHEST SINGLE VIEW FRONTAL RADIOLOGI 00505 NEMO OSULLIVAN ADA C 0 RADIOLOGY EXAMINATI ASSOC ON CHEST SINGLE VIEW FRONTAL RADIOLOGI 77770 NEMO SHI ADA C 0 RADIOLOGY EXAMINATI ASSOC ON CHEST SINGLE VIEW FRONTAL RADEX 93461 NEMO TERRELL ABDOMEN 1 0 RADIOLOGY ELYSSA ASSOC ANTEROPOS TERIOR VIEW RADIOLOGI 73142 NEMO RICE THO C 0 RADIOLOGY EXAMINATI ASSOC ON CHEST SINGLE VIEW FRONTAL RADIOLOGI 46784 CENTRAL PIERRE J C 0 RADIOLOGY EXAMINATI ASSOC ON CHEST SINGLE VIEW FRONTAL LEVEL 65822 CHIPPS BENSEMA SURG 0 KRIS & MAR PATHOLOGY DUBILIER GROSS&BOY ROSCOPIC EXAM ANES 25381 CENTRAL SLAVA THORACOTO 0 [place] EDW MY & ANESTHESI THORACOSC A OPY W/1 LUNG VNTJ THORCOM 19897 ISLAM IMAM MOH THRC 0 CARDIOTHO W/MEDSTNL RACIC & SURGI REGIONAL LMPHADEC RMVL LUNG 21355 ISLAM IMAM MOH OTHER 0 CARDIOTHO THAN RACIC PNEUMONEC SURGI BRENDA 1 LOBE LOBECT PATH 51675 CHIPPS BENSEMA CONSLTJ 0 KRIS & MAR SURG 1ST DUBILIER BLK FROZEN SCTJ 1 SPEC LEVEL V 77535 CHIPPS BENSEMA SURG 0 KRIS & MAR PATHOLOGY DUBILIER GROSS&[place] [address] CHIPPS BENSEMA SURG 0 KRIS & MAR PATHOLOGY DUBILIER GROSS&BOY ROSCOPIC EXAM RADIOLOGI 38520 NEMO BARRERA MAR C EXAM 0 RADIOLOGY CHEST 2 ASSOC VIEWS FRONTAL&L ATERAL ECG 01000 [facility] ROUTINE 0 ORTH SILVIA ECG CARDIOLOG W/LEAST Y CONSULT 12 LDS I&R ONLY SPMTRY 20959 ISLAM SAAVEDRA W/VC 0 PULMONARY CESAR EXPIRATOR & Y FAMILIA CRITICAL W/WO MXML VOL VNTJ INJECTION J0690 CHUNG CHUNG 0 DON DON CEFAZOLIN SODIUM 500 MG IIV3 48883 CHUNG CHUNG VACCINE 0 DON DON SPLIT VIRUS 0.5 ML DOSAGE IM USE ADMINISTR G0008 CHUNG CHUNG ATION OF 0 DON DON INFLUENZA VIRUS VACCINE COMPUTER- 35972 [place] XIOMY AIDED 0 MEDICAL ARLETTE DETECTION IMAGING ASS SCREENING MAMMOGRAP HY SCREENING G0202 [place] XIOMY 0 MEDICAL ARLETTE MAMMOGRAP IMAGING HY CHRISTOPHER ASS INCL CAD WHEN PERFORMD FINE 50687 [facility] MAR NEEDLE 0 RADIOLOGY ASPIRATIO ASSOC N WITH IMAGING GUIDANCE [facility] 91556 ISLAM UMBERTO GAR INCL 0 CARDIOTHO FLUOR RACIC GDNCE DX SURGI W/CELL WASHG SPX CYTP EVAL 31771 CHIPPS JAVON FINE 0 KRIS & CESAR NEEDLE DUBILIER ASPIRATE INTERP & REPORT CYTP FINE 93373 CHIPPS JAVON NDL 0 KRIS & CESAR ASPIRATE DUBILIER IMMT CYTOH[place] STD DX 1ST [place] [address] CHIPPS PICKLESIM SURG 0 KRIS & ER JR LAVELL PATHOLOGY DUBILIER GROSS&BOY ROSCOPIC EXAM CYTP 15272 CHIPPS PICKLESIM SLCTV 0 KRIS & ER JR LAVELL CELL DUBILIER ENHANCEME NT INTERPJ XCPT C/V [place] [address] [facility] MAR GUIDANCE 0 RADIOLOGY NEEDLE ASSOC PLACEMENT RADIOLOGI 47168 CENTRAL [facility] MAR C 0 RADIOLOGY EXAMINATI ASSOC ON CHEST SINGLE VIEW FRONTAL SPMTRY 63280 ISLAM UMBERTO GAR W/VC 0 CARDIOTHO EXPIRATOR RACIC Y FAMILIA SURGI W/WO MXML VOL VNTJ BLOOD 35353 [facility] OCCULT 0 [facility] E ACTV QUAL FECES 1 DETER SCR G0123 PATHOLOGY PATHOLOGY CYTOPATH 0 & & CERV/VAG CYTOLOGY CYTOLOGY SCR [place] [address] [facility] GUIDANCE 0 [facility] NEEDLE INC INC PLACEMENT 3D 82548 [facility] RENDERING 0 [facility] INC INC W/INTERP& [place] [address] [facility] INFUSION 0 [facility] THERAPY INC INC PROPHYLAX IS/DX EA HOUR CYTP EVAL 81671 PATHOLOGY PATHOLOGY FINE 0 & & NEEDLE CYTOLOGY CYTOLOGY ASPIRATE LAB LAB INTERP & REPORT CYTP FINE 49997 PATHOLOGY PATHOLOGY NDL 0 & & ASPIRATE CYTOLOGY CYTOLOGY IMMT LAB LAB CYTOHIST STD DX 1ST CT THORAX 88765 [facility] W/O 0 [facility] CONTRAST INC INC MATERIAL RADIOLOGI 88765 T[facility] C EXAM 0 [facility] CHEST 2 INC INC VIEWS FRONTAL&[place] [address] [facility] INFUSION 0 [facility] THERAPY/P INC INC ROPHYLAXI S /DX 1ST TO 1 HR MODERATE 59059 LEEANN STAUFFER SEDATJ 0 MEDICAL ARLETTE SAME IMAGING PHYS/QHP ASS 5/>YRS INIT 30 MIN MODERATE 92634 LEEANN STAUFFER SEDATJ 0 MEDICAL ARLETTE SAME IMAGING PHYS/QHP ASS EACH ADDL 15 MIN FINE 76982 [facility] NEEDLE 0 [facility] ASPIRATIO INC INC N WITH IMAGING GUIDANCE PROTHROMB 26619 T[facility] IN TIME 0 [facility] INC INC CREATININ 96201 [facility] E BLOOD 0 [facility] INC INC BLOOD 93462 [facility] COUNT 0 [facility] COMPLETE INC INC AUTO&AUTO DIFRNTL WBC THROMBOPL 25316 T[facility] ASTIN 0 [facility] TIME INC INC PARTIAL PLASMA/[place] [address] [facility] UREA 0 [facility] HOSP NITROGEN INC INC QUANTITAT KEMI COLLECTIO 39661 [facility] N VENOUS 0 [facility]OSP BLOOD INC INC VENIPUNCT URE CT THORAX 62409 [place] XIOMY 0 MEDICAL ARLETTE W/CONTRAS IMAGING T ASS MATERIAL RADEX 36738 [place] XI[place] RIBS UNI 0 MEDICAL ARLETTE W/POSTERO IMAGING ANT CH ASS MINIMUM 3 VIEWS 3D 99741 [facility] RENDERING 0 [facility] INC INC W/INTERP& POSTPROC DIFF WORK STATION BASIC 31088 [facility] METABOLIC 0 [facility] PANEL INC INC CALCIUM TOTAL BLOOD 98279 [facility] COUNT 0 [facility] COMPLETE INC INC AUTO&AUTO DIFRNTL WBC INJECTION J1040 CHUNG CHUNG 0 DON DON METHYLPRE DNISOLONE ACETATE 80 MG SCANNING 23848 DAMON JAVIER DAMON JAVIER OPHTHALMI 0 C IMAGING POSTERIOR SGM UNI OPHTH 79455 [facility] MEDICAL 0 XM&EVAL COMPRHNSV ESTAB PT 1/> RADEX 98027 [facility] FOOT 0 [facility] COMPLETE INC INC MINIMUM 3 [place] [address] PATT ARIZMENDI PHLX/PHLG 0 EMERGENCY III, OTH/THN SERVICES NINI GRT TOE W/O MANJ ASSOCIATE S INJECTION J1040 JULIET CHUNG, 0 DON R DON R METHYLPRE DNISOLONE ACETATE 80 MG INJECTION J1040 JULIET CHUNG, 0 DON R DON R METHYLPRE DNISOLONE ACETATE 80 MG ECG 37890 TESS DOAN, ROUTINE 0 [facility] W/LEAST PROF SERV 12 LDS I&[place] [address] [facility] TROPONIN 0 [facility] QUANTITAT INC INC KEMI ECG 78058 [facility] ROUTINE 0 [facility] ECG INC INC W/LEAST 12 LDS TRCG ONLY W/O I&R CREATINE 35015 [facility] KINASE 0 [facility] TOTAL INC INC CREATINE 09627 [facility] KINASE MB 0 [facility] FRACTION INC INC ONLY INJECTION J3420 JULIET CHUNG, VIT B-12 9 DON R DON R CYANOCOBA MAYANK TO 1000 MCG INJECTION J1040 JULIET CHUNG 9 DON R DON R METHYLPRE DNISOLONE ACETATE 80 MG INFLUENZA G9141 JULIET CHUNG A H1N1 9 DON R DON R IMMUNIZAT ION ADMINISTR ATION GLUC BLD 04844 [facility]/CO TESS GLUC MNTR [address] [place] [address] CLEARED BANK ACCT FDA SPEC HOME USE LIPID 30320 [facility] OF [facility] OF PANEL 9 [place] INC SCR G0123 PATHOLOGY PATHOLOGY CYTOPATH 9 & & CERV/VAG CYTOLOGY CYTOLOGY SCR LAB LAB CYTOTECH UND PHYS SUPV BLOOD 89922 DHS/CO TESS OCCULT 9 [facility] E ACTV BANK ACCT QUAL FECES 1 DETER ADMINISTR G0008 JULIET CHUNG, ATION OF 9 DON R DON R INFLUENZA VIRUS VACCINE IIV3 83483 JULIET CHUNG, VACCINE 9 DON R DON R SPLIT VIRUS 0.5 ML DOSAGE IM USE 3D 72871 XIOMY STAUFFER, RENDERING 9 MAURY MARUY W/INTERP & [place] [address] XIOMY STAUFFER, SPINAL 9 MAURY MAURY CANAL CERVICAL W/O CONTRAST MATRL RADEX 03560 JULIET CHUNG, SPINE 9 DON R DON R CERVICAL 4 OR 5 VIEWS SCREENING 40853 [place] Star [facility] P MAMMOGRAP IMAGING HY ASSOCIATE BILATERAL S COMPUTER- 47913 [place] ANTONIO AIDED 9 MEDICAL BE P DETECTION IMAGING ASSOCIATE SCREENING S MAMMOGRAP HY ALBUTEROL J7620 YOUR YOUR TO 2.5 9 PHARMACY PHARMACY [employer] IPRATROPI UM BROM TO 0.5 MG PHRM Q0513 YOUR YOUR DISPENSIN 9 PHARMACY PHARMACY [employer] INHALATIO N RX; PER 30 DAYS ADMN SET A7005 YOUR YOUR W/SM VOL 9 PHARMACY PHARMACY NONFILTR scroll kit NEBULIZR NON-DISPB L RADIOLOGI 74096 [place] Vitor ALVAREZ EXAM 9 MEDICAL BE Raphael CHEST 2 IMAGING VIEWS ASSOCIATE FRONTAL&L S ATERAL INJECTION J1040 JULIET CHUNG 9 DON R DON R METHYLPRE DNISOLONE ACETATE 80 MG INJECTION J1040 JULIET CHUNG 9 DON R DON R METHYLPRE DNISOLONE ACETATE 80 MG OPHTH 41221 NELSON DAMON, MEDICAL 9 TIM A TIM A XM&EVAL COMPRE NEW PT 1/> VST INJECTION J1040 JULIET CHUNG 9 DON R DON R METHYLPRE DNISOLONE ACETATE 80 MG INJECTION J1040 CHUNG, CHUNG, 9 DON R DON R METHYLPRE DNISOLONE ACETATE 80 MG INJECTION J3420 JULIET CHUNG, VIT B-12 9 DON R DON R CYANOCOBA MAYANK TO 1000 MCG MAMMOGRAP 16302 [place] XIOMY, 9 MEDICAL MAURY UNILATERA IMAGING L ASSOCIATE S INJECTION J1040 JULIET CHUNG, Star DON R DON R METHYLPRE DNISOLONE ACETATE 80 MG RADEX 90254 [place] ANTONIO, SPINE 8 MEDICAL BE P LUMBOSACR IMAGING AL ASSOCIATE MINIMUM 4 S VIEWS INJECTION J1040 JULIET CHUNG 8 DON R DON R METHYLPRE DNISOLONE ACETATE 80 MG ADMINISTR G0009 JULIET CHUNG, ATION OF 8 DON R DON R PNEUMOCOC KAISER VACCINE ADMINISTR G0008 JULIET CHUNG, ATION OF 8 DON R DON R INFLUENZA VIRUS VACCINE PPSV23 75589 JULIET CHUNG, VACCINE 2 8 DON R DON R YRS OR OLDER FOR SUBQ/IM USE IIV3 42707 JULIET CHUNG, VACCINE 8 DON R DON R SPLIT VIRUS 0.5 ML DOSAGE IM USE RADEX 57071 JULIET CHUNG, RIBS UNI 8 DON R DON R W/POSTERO ANT CH MINIMUM 3 VIEWS INJECTION J1040 JULIET CHUNG, Maria DON R DON R METHYLPRE DNISOLONE ACETATE 80 MG INJECTION J1040 JULIET CHUNG 8 DON R DON R METHYLPRE DNISOLONE ACETATE 80 MG COMPUTER- 19459 [place] XIOMY, AIDED 8 MEDICAL MAURY DETECTION IMAGING ASSOCIATE SCREENING S MAMMOGRAP HY SCREENING 70710 [place] XIOMY, MEDICAL MAURY MAMMOGRAP IMAGING HY ASSOCIATE BILATERAL S INJECTION J1040 JULIET CHUNG, Maria DON R DON R METHYLPRE DNISOLONE ACETATE 80 MG LIPID 82716 DHS/CO TESS PANEL 8 [facility] BANK ACCT BLOOD 69954 DHS/CO TESS OCCULT 8 [facility] PEROXIDAS [facility] E ACTV BANK ACCT QUAL FECES 1 DETER CYTP 81817 [facility]/CO TESS CERV/VAG 8 [facility] AUTO THIN [facility]AL CENTER LAYER BANK ACCT PREP MNL SCREEN GLUC BLD 45733 [facility]/CO TESS GLUC MNTR 8 [facility] DEV [facility] CLEARED BANK ACCT FDA SPEC HOME USE MYOCRD 77680 JOSH ESCALANTE, PRFUJ STD 8 LT ADRIANNE Bland WALL CARDIOLOG MOTION Y ASSOC QUAL/MARLEE STD MYOCRD 71702 JOSH ESCALANTE, PRFUJ IMG 8 [facility] ADRIANNE Bland TOMOG CARDIOLOG SPECT WILDLIFE PROTECTOR Y ASSOC STD CV STRS 11052 JOSH ESCALANTE, TST 8 [facility] ADRIANNE Bland XERS&/OR CARDIOLOG RX CONT Y ASSOC ECG I&R ONLY CV STRS 44764 JOSH ESCALANTE, TST 8 [facility] ADRIANNE Bland XERS&/OR CARDIOLOG RX CONT Y ASSOC ECG W/O I&R MYOCRD 95336 JOSH ESCALANTE, PRFUJ STD 8 [facility] ADRIANNE Bland EJEC FXJ CARDIOLOG Y ASSOC HOSPITAL 67821 JOSH ESCALANTE, DISCHARGE 8 LT ADRIANNE Bland DAY CARDIOLOG MANAGEMEN Y ASSOC T 30 MIN/< DOP 17773 JOSH ESCALANTE ECHOCARD 8 [facility] ADRIANNE Bland COLOR CARDIOLOG FLOW Y ASSOC VELOCITY MAPPING ECHO 05157 JOSH ESCALANTE, TRANSTHOR 8 LT ADRIANNE Bland AC R-T 2D CARDIOLOG W/WO Y ASSOC M-MODE REC COMP INITIAL 60460 JOSH ESCALANTE, HOSPITAL 8 [facility] ADRIANNE Bland CARE/DAY CARDIOLOG 50 Y ASSOC MINUTES DOPPLER 47667 JOSH ESCALANTE ECHOCARD 8 [facility] ADRIANNE Bland PULSE CARDIOLOG WAVE Y ASSOC W/SPECTRA L DISPLAY RADIOLOGI 59413 Vitor LOAIAZ MEDICAL MAURY EXAMINATI IMAGING ON CHEST ASSOCIATE SINGLE S VIEW FRONTAL AMB A0427 [facility] SERVICE 8 AMBULANCE AMBULANCE ALS SERVICE SERVICE EMERGENCY TRANSPORT LEVEL 1 THROMBOPL 98646 [facility] ASTIN 8 [facility] HOSP TIME INC INC PARTIAL PLASMA/WH OLE BLOOD BASIC 82374 [facility] METABOLIC 8 [facility]OSP PANEL INC INC CALCIUM TOTAL GROUND A0425 [facility] MILEAGE 8 AMBULANCE AMBULANCE PER SERVICE SERVICE STATUTE MILE THER 34454 [facility] PROPH/DX 8 [facility] HOSP NJX EA INC INC SEQL IV PUSH SBST/DRUG CREATINE 56167 [facility] KINASE MB 8 [facility]OSP FRACTION INC INC ONLY COLLECTIO 11422 [facility] N VENOUS 8 [facility] BLOOD INC INC VENIPUNCT URE ECG 81988 JOSH ESCALANTE, ROUTINE 8 [facility] B ECG CARDIOLOG W/LEAST Y ASSOC 12 LDS I&R ONLY BLOOD 54609 [facility] COUNT 8 [facility] HOSP COMPLETE INC INC AUTO&[place] [address] TESS P[facility] TROPONIN 8 [facility] HOSP QUANTITAT INC INC KEMI ECG 74110 [facility] ROUTINE 8 [facility] HOSP ECG INC INC W/LEAST 12 LDS TRCG ONLY W/O I&R THER 77534 [facility] PROPH/DX 8 [facility] HOSP NJX IV INC INC PUSH 1ST SBST/DRUG PROTHROMB 30232 TESS [facility] IN TIME 8 [facility]OS[facility] INC INC CREATINE 11829 [facility] KINASE 8 [facility]OS[facility] TOTAL INC INC ECG 34491 [facility] ROUTINE 8 [facility] ECG INC INC W/LEAST 12 LDS TRCG ONLY W/O I&R ECG 19085 TESS LÓPEZ, ROUTINE 8 [facility] W/LEAST PROF SERV 12 LDS I&R ONLY RADIOLOGI 57496 Vitor LOAIZA EXAM 8 MEDICAL MAURY CHEST 2 IMAGING VIEWS ASSOCIATE FRONTAL&L S ATERAL INJECTION J1040 JULIET CHUNG, Maria DON R DON R METHYLPRE DNISOLONE ACETATE 80 MG PHRM Q0513 YOUR YOUR DISPENSIN 8 PHARMACY PHARMACY [facility] [employer] [facility] INHALATIO N RX; PER 30 DAYS ALBUTEROL J7620 YOUR YOUR TO 2.5 8 PHARMACY PHARMACY [employer] [facility] IPRATROPI UM BROM TO 0.5 MG ADMN SET A7003 YOUR YOUR SM VOL 8 PHARMACY PHARMACY NONFILTR [facility] PNEUMAT NEBULIZR DISPBL INJECTION J1040 JULIET CHUNG, Maria DON R DON R METHYLPRE DNISOLONE ACETATE 80 MG INJECTION J1040 JULIET CHUNG, Maria DON R DON R METHYLPRE DNISOLONE ACETATE 80 MG NEBULIZER E0570 [facility] WITH 8 HOME MED HOME MED COMPRESSO EQUIP. E[facility] LLC NEBULIZER E0570 [facility] WITH 8 HOME MED HOME MED COMPRESSO EQUIP. EQUIP. R [employer] Encounters Encounter Start End Date Code Location Performer Type Date OFFICE 63653 [facility] OUT[facility]IEN 7 7 T VISIT ORTHOPAED 15 ICS PSC MINUTES OFFICE 52052 [facility] MAURICE OUTPATIEN 7 7 PHYSICIAN T VISIT 5 S GROUP MINUTES OFFICE 73051 [facility] MAURICE OUTPATIEN 7 7 PHYSICIAN T VISIT S GROUP 10 MINUTES EMERGENCY 93462 RIKY ROJAS 7 7 PHYSICIAN [facility], [facility] T VISIT HIGH/URGE NT SEVERITY HOSPITAL TESS - 7 7 [facility] INPATIENT [facility] TESS - 7 7 [facility] TESS - 7 7 [facility] INPATIENT [facility] EMERGENCY 88972 RIKY BUCKLEY DEPT 7 7 PHYSICIAN VISIT S, [facility] HIGH SEVERITY& THREAT FUNCJ OFFICE 26358 GAYE MENEZES OUTPATIEN 7 7 HEALTH T VISIT MEDICAL 15 GROUP MINUTES EMERGENCY 15383 TESS 7 7 [facility] DEPARTMEN INC T VISIT LOW/MODER SEVERITY HOSPITAL TESS - 7 7 [facility] OUTPATIEN INC T EMERGENCY 48423 [facility] 7 7 PHYSICIAN VISIT S, PLLC HIGH SEVERITY& THREAT FUN HOSPITAL TESS - 6 6 [facility] OUTPATIEN INC T OFFICE [address] [facility] OUTPATIEN 6 6 PHYSICIAN MAT T VISIT S GROUP 25 MINUTES HOSPITAL TESS - 6 6 [facility] OUTPATIEN INC T HOSPITAL TESS - 6 6 [facility] OUTPATIEN INC T HOSPITAL TESS - 6 6 [facility] OUTPATIEN INC T EMERGENCY 42212 TESS 6 6 [facility] DEPARTMEN INC T VISIT MODERATE SEVERITY EMERGENCY 77918 RIKY SHEEHAN 6 6 [facility] T VISIT HIGH/URGE NT SEVERITY Emergency RADHA Buckley MD (ER) 4 20:51 4 21:49 [facility] Emergency RADHA Arizmendi (ER) 3 18:37 3 20:17 [facility] Emergency RADHA Buckley MD (ER) 3 01:59 3 02:27 [facility] Emergency RADHA HEREDIA MD (ER) 3 15:08 3 16:37 [facility] OFFICE [id number] JULIET LIRAS OUTPATIEN 1 1 DON DON T VISIT 15 MINUTES OFFICE 12420 CHUNG CHUNG OUTPATIEN 1 1 DON DON T VISIT 15 MINUTES OFFICE 55166 CHUNG CHUNG OUTPATIEN 1 1 DON DON T VISIT 15 MINUTES OFFICE 19242 JULIET LIRAS OUTPATIEN 0 0 DON DON T VISIT 15 MINUTES EMERGENCY 16967 TESS 0 0 [facility]PART[facility] T VISIT HIGH/URGE NT SEVERITY HOSPITAL TESS - 0 0 [facility] OUTPATIEN INC T EMERGENCY 65498 PATT BUCKLEY DEPT 0 0 EMERGENCY BOY VISIT SERVICES HIGH SEVERITY& THREAT FUNCJ OFFICE 13179 JULIET LIRAS OUTPATIEN 0 0 DON DON T VISIT 15 MINUTES OFFICE 66040 JULIET LIRAS OUTPATIEN 0 0 DON DON T VISIT 15 MINUTES OFFICE 03405 ISLAM MOH OUTPATIEN 0 0 CARDIOTHO T VISIT RACIC 10 SURGI MINUTES HOSPITAL TESS - 0 0 [facility] INC T OFFICE 89051 ISLAM UMBERTO GAR OUTPATIEN 0 0 CARDIOTHO T VISIT RACIC 10 SURGI MINUTES OFFICE 99199 ISLAM UMBERTO GAR OUTPATIEN 0 0 CARDIOTHO T NEW 60 RACIC MINUTES SURGI PERIODIC 07295 TESS PULIDO PREVENTIV 0 0 [facility] C[facility] PATIENT 66YRS& O[facility] TESS - 0 0 [facility] T [facility] TESS - 0 0 [facility] OUT[facility]IEN INC T OFFICE 78218 JULIET CHUNG OUTPATIEN 0 0 DON DON T VISIT 15 MINUTES EMERGENCY 50746 PATT HILLMAN DEPT 0 0 EMERGENCY VISIT SERVICES HIGH SEVERITY& THREAT FUNCJ EMERGENCY 53727 TESS 0 0 [facility] DEPARTMEN INC T VISIT MODERATE SEVERITY HOSPITAL TESS - 0 0 [facility] OUTPATIEN INC T OFFICE 14122 JULIET CHUNG OUTPATIEN 0 0 DON DON T VISIT 15 MINUTES OFFICE 72756 JULIET CHUNG, OUTPATIEN 0 0 DON R DON R T VISIT 15 MINUTES OFFICE 81830 JULIET CHUNG, OUTPATIEN 0 0 DON R DON R T VISIT 15 MINUTES EMERGENCY 03327 TESS 0 0 [facility] DEPARTMEN INC T VISIT LOW/MODER SEVERITY EMERGENCY 37169 PATT ARIZMENDI 0 0 EMERGENCY III, DEPARTMEN SERVICES NINI T VISIT MODERATE ASSOCIATE SEVERITY S HOSPITAL TESS - 0 0 [facility] OUT[facility] INC T OFFICE 25432 JULIET CHUGN OUTPATIEN 0 0 DON R DON R T VISIT 15 MINUTES OFFICE 55010 JULIET CHUNG OUTPATIEN 0 0 DON R DON R T VISIT 15 MINUTES HOSPITAL ETSS - 0 0 [facility] OUTPATIEN INC T EMERGENCY 38848 PATT ARIZMENDI 0 0 EMERGENCY III, DEPARTMEN SERVICES NINI T VISIT HIGH/URGE ASSOCIATE NT S SEVERITY EMERGENCY 33167 TESS 0 0 [facility] DEPARTMEN INC T VISIT LOW/MODER SEVERITY OFFICE 91890 JULIET CHUNG OUTJANISEN 9 9 DON R DON R T VISIT 15 MINUTES OFFICE 74106 [facility] OUTPATIEN 9 9 [facility] 15 BANK ACCT MINUTES PERIODIC 32902 [facility] TESS PREVENTIV 9 9 [facility] PATIENT BANK ACCT 66YRS& OLDER OFFICE 54037 JULIET CHUNG OUTJANISEN 9 9 DON R DON R T VISIT 15 MINUTES HOSPITAL TESS - 9 9 [facility] OUTPATIEN INC T EMERGENCY 63856 TESS 9 9 [facility] DEPARTMEN INC T VISIT LOW/MODER SEVERITY EMERGENCY 57618 PATT AQUINO, 9 9 EMERGENCY ANTONI R DEPARTMEN SERVICES T VISIT HIGH/URGE ASSOCIATE NT S SEVERITY HOSPITAL TESS - 9 9 [facility] OUTPATIEN INC T OFFICE 82318 JULIET CHUNG OUTPATIEN 9 9 DON R DON R T VISIT 15 MINUTES OFFICE 82700 JULIET CHUNG OUTPATIEN 9 9 DON R DON R T VISIT 15 MINUTES OFFICE 69973 JULIET CHUNG OUTPATIEN 9 9 DON R DON R T VISIT 15 MINUTES OFFICE 96674 JULIET CHUNG OUTPATIEN 9 9 DON R DON R T VISIT 15 MINUTES HOSPITAL TESS - 9 9 [facility]PATIEN INC T OFFICE 19105 JULIET CHUNG OUTPATIEN 9 9 DON R DON R T VISIT 15 MINUTES OFFICE 78051 JULIET CHUNG OUTPATIEN 8 8 DON R DON R T VISIT 15 MINUTES OFFICE 64574 JULIET CHUNG OUTPATIEN 8 8 DON R DON R T VISIT 15 MINUTES HOSPITAL TESS - 8 8 [facility] OUTPATIEN INC T EMERGENCY 43334 TESS 8 8 [facility] DEPARTMEN INC T VISIT LOW/MODER SEVERITY OFFICE 69885 JULIET CHUNG OUTPATIEN 8 8 DON R DON R T VISIT 15 MINUTES OFFICE 92056 JULIET CHUNG OUTPATIEN 8 8 DON R DON R T VISIT 15 MINUTES OFFICE 63900 JULIET CHUNG OUTPATIEN 8 8 DON R DON R T VISIT 15 MINUTES HOSPITAL TESS - 8 8 [facility]IEN INC T OFFICE 42119 JULIET CHUNG OUTPATIEN 8 8 DON R DON R T VISIT 15 MINUTES [facility] 15083 [facility]CO TESS PREVENTIV 8 8 [facility] PAT[facility] BANK ACCT 66Y[facility]& [facility] TESS - 8 8 [facility] T EM[facility]GENC[facility] 48828 [place] DEPT 8 8 [facility] HIGH SEVERITY& THREAT FUNCJ EMERGENCY 19919 GENEVIEVE FRANCIS, 8 8 [facility] CORPORAT[facility] T VISIT ON HIGH/URGE NT SEVERITY [facility]OSPITAL TESS - 8 8 [facility] T OFFICE [id number] Johan WOODWARD 8 8 CARE G T VISIT ASSOCIATE 15 S MINUTES OFFICE [id number] Johan WOODWARD 8 8 CARE G T VISIT ASSOCIATE 15 S MINUTES OFFICE [id number] JULIET CHUNG OUTPATIEN 8 8 DON R DON R T VISIT 15 MINUTES OFFICE [id number] JULIET CHUNG OUTPATIEN 8 8 DON R DON R T VISIT 15 MINUTES OFFICE [id number] JULIET CHUNG OUTPATIEN 8 8 DON R DON R T VISIT 15 MINUTES OFFICE [id number] JULIET CHUNG OUTPATIEN 8 8 DON R DON R T VISIT 15 MINUTES
--- OUTSIDE RECORDS SUMMARY | 2017-01-18 10:16 | External Medical Summary Rpt ---
Author Author , Organization [employer] Address Unknown Phone Unavailable Care Team Providers Care Insurance Healthcare Representative Name Role Phone SLAVA EDW, Unavailable Unavailable SLAVA EDW JEWISH Unavailable Unavailable CARDIOTHORACIC SURGI, JEWISH CARDIOTHORACIC SURGI [facility] Unavailable Unavailable MEDICAL GROUP, [facility] JEWISH PULMONARY & Unavailable Unavailable CRITICAL, [facility]EW[facility] PULMONARY & CRITICAL BENSEMA MAR, BENSEMA Unavailable Unavailable MAR NAZ CHILDS Unavailable Unavailable PANKAJ CHILDS, Unavailable Unavailable PANKAJ CHILDS [facility] Unavailable Unavailable [facility], [facility] BARRERA, BARRERA Unavailable Unavailable BARRERA ALL, BARRERA ALL Unavailable Unavailable BREEDING SEAN, Unavailable Unavailable BREEDING SEAN [facility] Unavailable Unavailable SERVICE, [facility] C PAULO SAMAYOA MD Unavailable Unavailable PSC, C PAULO SAMAYOA MD PSC ADRIANNE ESCALANTE, Unavailable Unavailable ADRIANNE ESCALANTE [facility] Unavailable Unavailable [facility]ES[facility], [facility] Unavailable Unavailable [facility]OC, [facility] CLIF MENEZES Unavailable Unavailable CHIPPS KRIS & Unavailable Unavailable DUBILIER, [facility] OF Unavailable Unavailable [facility], [facility] Johan ARANDA COOPER, Unavailable Unavailable Johan FRANCOXIOMY, XIOMY Unavailable Unavailable XIOMY ARLETTE, Unavailable Unavailable XIOMY ARLETTE XIOMY, MAURY, Unavailable Unavailable XIOMY, MAURY UMBERTO GAR, UMBERTO GAR Unavailable Unavailable [facility]available [facility] [place] [facility] Unavailable [place]available [facility] ALLAN HEREDIA MD, Unavailable Unavailable ALLAN HEREDIA MD BARRERA MAR, BARRERA MAR Unavailable Unavailable JR ROJAS FULLER, Unavailable Unavailable ANKUR DANIELSON Unavailable Unavailable ANKUR BOY, ANKUR Unavailable Unavailable BOY ANTONI AQUINO, Unavailable Unavailable ANTONI AQUINO [facility] Unavailable Unavailable [place] Unavailable Unavailable [place], [facility] Unavailable Unavailable INC, [facility] Unavailable Unavailable HOSPITAL P, [facility] DELMIS LÓPEZ HARVEY, Unavailable Unavailable DELMIS DAMON JAVIER, DAMON JAVIER Unavailable Unavailable DAMON JAVIER, DAMON JAVIER Unavailable Unavailable DAMON, TIM A, Unavailable Unavailable DAMON, TIM A [facility], Unavailable Unavailable [facility] NANI SILVIA, Unavailable Unavailable NANI SILVIA ROBIN, ROBIN Unavailable Unavailable IMAM MOH, IMAM MOH Unavailable Unavailable JAVON CESAR, JAVON Unavailable Unavailable CESAR TERRELL ELYSSA, TERRELL Unavailable Unavailable ELYSSA [facility] Un[facility], Unavailable Unavailable [facility] FRANKI ROSS, FRANKI ROSS Unavailable Unavailable SHAWN DOAN E, Unavailable Unavailable SHAWN DOAN E Capri Buckley MD, Unavailable Unavailable Capri Buckley MD [facility] Unavailable Unavailable SERVICES, [facility] BE [facility], Unavailable Unavailable [facility], Unavailable Unavailable PLLC, [facility] Unavailable Unavailable LAB, [facility] Unavailable Unavailable LAB, [facility] PICKLESIMER JR LAVELL, Unavailable Unavailable PICKLESIMER JR LAVELL MAURIEC, MAURICE Unavailable Unavailable RENUSCH, RENUSCH Unavailable Unavailable [...] Diagnosis DOS Provider Status 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 [facility]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 D62 ACUTE 11-10-2016 [facility] POSTHEMORRH PHYSICIANS AGIC ANEMIA GROUP I4891 UNSPECIFIED 11-10-2016 [facility] ATRIAL PHYSICIANS FIBRILLATIO GROUP N K921 MELENA 11-10-2016 [facility] PHYSICIANS GROUP Z1211 ENCOUNTER 11-10-2016 [facility] SCREENING PHYSICIANS MALIGNANT GROUP NEOPLASM OF COLON K2990 GASTRODUODE 10-28-2016 [facility] NITIS PHYSICIANS UNSPECIFIED GROUP WITHOUT BLEEDING R911 SOLITARY 10-27-2016 [facility] PULMONARY HOME NODULE MEDICAL EQUIPME K922 GASTROINTES 10-21-2016 [facility] TINAL [facility]ICAL HEMORRHAGE IMAGING ASS UNSPECIFIED I480 PAROXYSMAL 10-20-2016 [facility] P N Z7901 FPC 10-20-2016 [facility] CURRENT USE [facility] P ANTICOAGULA NTS Z955 PRESENCE OF 10-20-2016 [facility] P IMPLANT & GRAFT 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, ANEMIA SEC PLLC TO BLOOD LOSS CHRONIC 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 K2980 DUODENITIS 10-17-2016 [facility] WITHOUT [facility] BLEEDING INC K449 DIAPHRAGMAT 10-17-2016 [facility] IC HERNIA [facility] W/O INC OBSTRUCTION OR GANGRENE K5730 DIVERTICULO 10-17-2016 [facility] SIS LG MEDICAL INTEST W/O IMAGING ASS PERF/ABSC W/O BLEED R109 UNSPECIFIED 10-17-2016 [facility] ABDOMINAL MEDICAL PAIN IMAGING ASS R0602 SHORTNESS 09-02-2016 [facility] OF BREATH [facility] INC R079 CHEST PAIN 09-02-2016 [facility] UNSPECIFIED [facility] INC E785 HYPERLIPIDE 08-24-2016 [facility] MORENA PHYSICIANS UNSPECIFIED GROUP I10 ESSENTIAL 08-24-2016 [facility] PRIMARY PHYSICIANS HYPERTENSIO GROUP N J449 CHRONIC 08-24-2016 [facility] OBSTRUCTIVE PHYSICIANS PULMONARY GROUP DISEASE UNS C3411 MALIGNANT 08-22-2016 [facility] NEOPLASM [facility] UPPER LOBE INC RT BRONCHUS/DELFINA NG R072 PRECORDIAL 08-22-2016 [facility] PAIN PHYSICIANS, PLLC S74296 PERSONAL HX 08-22-2016 [facility] MEDICAL NEOPLASM IMAGING ASS BRONCHUS & LUNG V14452 PERSONAL 08-22-2016 [facility] HISTORY OF [facility] NICOTINE INC DEPENDENCE Z720 TOBACCO USE 08-14-[address] [facility] Z902 ACQUIRED 08-14-2016 [facility] LUNG MEDICAL GROUP J209 ACUTE 08-11-2016 [facility] BRONCHITIS PHYSICIANS, UNSPECIFIED PLLC J440 COPD WITH 08-11-2016 [facility] ACUTE [facility] INC RESPIRATORY INFECTION K219 GASTRO-ESOP 08-11-2016 [facility] REFLUX [facility] P WITHOUT ESOPHAGITIS R05 COUGH 08-11-2016 [facility] I119 HYPERTENSIV 07-14-2016 [facility] E HEART PHYSICIANS DISEASE GROUP WITHOUT HEART FAILURE J439 EMPHYSEMA 07-09-2016 [facility] UNSPECIFIED MEDICAL IMAGING ASS D649 ANEMIA 06-07-2016 [facility] UNSPECIFIED PHYSICIANS, PLLC E876 HYPOKALEMIA 06-07-2016 [facility] N19 UNSPECIFIED 06-07-2016 [facility] KIDNEY [facility] FAILURE INC N3001 ACUTE 06-07-2016 [facility] CYSTITIS PHYSICIANS, WITH PLLC HEMATURIA R319 HEMATURIA 06-07-2016 [facility] UNSPECIFIED PHYSICIANS, PLLC 372.00 372.00 [facility] 491.22 491.22 08-15-2013 [facility] CHRONIC [facility] BRONCHITIS WITH ACUTE BRONCHITIS 401.9 401.9 11-10-2012 [facility] 461.9 461.9 ACUTE 11-10-2012 [place] SINUSITIS [facility] 496 496 CHR 11-10-2012 [facility] OBSTRUCT Hospital NEC 4659 ACUTE URIS 11-08-2010 [facility] OF DON UNSPECIFIED SITE 4660 ACUTE 11-08-2010 [facility] BRONCHITIS DON 65543 OTHER 09-30-2010 [facility] SPECIFIED DON DISORDERS OF URINARY TRACT 47455 CHRONIC 09-30-2010 [facility] FATIGUE DON SYNDROME 77114 ASTHMA, 08-26-2010 [facility] UNSPECIFIED HOME MED , EQUIP. L UNSPECIFIED STATUS 462 ACUTE 08-23-2010 [facility] PHARYNGITIS DON 7862 COUGH 08-23-2010 [facility] DON V5831 ENCOUNTER 07-23-2010 [facility] CHANGE/CORAZON DON OMAR SURGICAL WOUND DRESSING 4019 UNSPECIFIED 07-17-2010 C PAULO ELLIS MD PSC N 72485 CALCU 07-17-2010 PATHOLOGY & [facility] CYTOLOGY W/OTH LAB CHOLECYST W/O MENTION OBST 82049 CHOLECYSTIT 07-17-2010 COMMUNITY IS, ANESTH OF UNSPECIFIED THE BLUE 1629 MALIGNANT 07-16-2010 [facility] NEOPLASM [facility] BRONCHUS&DELFINA INC NG UNSPEC SITE 09755 CALCU 07-16-2010 [facility] W/ACUT INC CHOLCYST W/O MENTION OBST 07736 CALCU 07-16-2010 [facility] MEDICAL W/O MENTION IMAGING ASS CHOLECYST/O BST 5758 OTHER 07-16-2010 [facility] SPECIFIED EMERGENCY DISORDER OF SERVICES GALLBLADDER V5869 LONG-TERM 07-16-2010 [facility] (CURRENT) [facility] USE OF INC OTHER MEDICATIONS V0382 NEED PROPH 06-23-2010 [facility] VACCINATION DON AGAINST STREP PNEUMONE 1623 MALIGNANT 06-10-2010 [facility] NEOPLASM KRIS & UPPER LOBE DUBILIER BRONCHUS OR LUNG 7866 SWELLING, 06-10-2010 JEWISH MASS, OR CARDIOTHORA LUMP IN CIC SURGI CHEST 7869 OTH 06-10-2010 [facility] [place] SYMPTOMS ANESTHESIA INVOLVING RESPIRATORY SYSTEM&CHES T 33969 OTHER 06-09-2010 [facility] DISEASES OF RADIOLOGY LUNG NOT ASSOC ELSEWHERE CLASSIFIED 5601 PARALYTIC 06-09-2010 [facility] ILEUS RADIOLOGY ASSOC 00459 SHORTNESS 06-09-2010 [facility] OF BREATH PULMONARY & CRITICAL 03344 ABNORMAL 06-09-2010 [facility] ARTERIAL RADIOLOGY BLOOD GASES ASSOC V5882 ENCOUNTER 06-09-2010 [facility] FITTING&ADJ RADIOLOGY ASSOC NON-VASCULA R CATHETER NEC V0481 NEED 05-06-2010 [facility] PROPHYLACTI DON C VACCINATION &INOCULATIO N FLU V7612 OTHER 04-25-2010 [facility] SCREENING MEDICAL MAMMOGRAM IMAGING ASS 6228 OTHER [...] SERVICES ACUTE OR CHRONIC 7336 TIETZES 03-19-2010 [facility]Y SERVICES 9221 CONTUSION 03-19-2010 [facility] CHEST MEDICAL WALL IMAGING ASS 4618 OTHER ACUTE 03-17-2010 [facility] SINUSITIS DON 13702 SPRAIN AND 01-01-2010 [facility], STRAIN OF DON R UNSPECIFIED SITE OF FOOT 07083 BORDERLINE 12-23-2009 DAMON JAVIER GLAUC OPEN ANGLE BL FINDINGS LOW RSK 47951 NUCLEAR 12-23-2009 DAMON JAVIER SCLEROSIS 06948 UNSPECIFIED 12-23-2009 [facility], SITE OF DON R ANKLE SPRAIN AND STRAIN 81625 PAIN IN 12-21-2009 [facility] JOINT, MEDICAL ANKLE AND IMAGING FOOT ASSOCIATES 8260 CLOSED 12-21-2009 [facility] FRACTURE OF EMERGENCY ONE OR SERVICES MORE ASSOCIATES PHALANGES OF FOOT E8859 FALL FROM 12-21-2009 [facility] OTHER EMERGENCY SLIPPING SERVICES TRIPPING OR ASSOCIATES STUMBLING 4610 ACUTE 11-01-2009 [facility], MAXILLARY DON R SINUSITIS 08084 SPASM OF 09-10-2009 [facility], MUSCLE [place] R 46553 CHEST PAIN 09-07-2009 [facility] UNSPECIFIED [facility] PROF SERV 8408 SPRAIN&STRA 09-07-[address] 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 00521 PNEUMONIA 03-04-2009 [facility], DUE TO DON R OTHER SPECIFIED BACTERIA 90539 OTHER CHEST 02-23-2009 [facility] EMERGENCY SERVICES ASSOCIATES 08762 OSTEOARTHRO 01-11-2009 JULIET S UNSPEC DON R GEN/LOC OTH SPEC SITES 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, 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 2720 PURE 11-09-2008 JULIET HYPERCHOLES DON R TEROLEMIA 99860 LUMP OR 09-28-2008 [facility] MASS IN [facility] BREAST INC 11793 UNSPECIFIED 09-28-2008 [facility] ABNORMAL MEDICAL MAMMOGRAM IMAGING ASSOCIATES 7242 LUMBAGO 07-20-2008 BERNY CHUNG R 47955 DISORDER OF 07-20-2008 JULIET BONE AND DON R CARTILAGE UNSPECIFIED 8472 LUMBAR 07-06-2008 JULIET SPRAIN AND DON R STRAIN 01970 UNSPECIFIED 06-20-2008 B[facility] CHUNG R CONJUNCTIVI TIS 4779 ALLERGIC 04-07-2008 JULIET RHINITIS DON R CAUSE UNSPECIFIED 92582 DIAB W/OTH 03-06-2008 [facility] COMA TYPE HEALTH II/UNS NOT [facility]ENTRAL STATED BANK ACCT UNCNTRL 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 74 EP ti ET 31 7- 7- 00 SI 47 HE ve SIDDIQUI 58 20 20 0 DE NS ZI 85 10 10 NE 8 PH DO AR N VC MA R -C CY OD EI OF NE CY SY NT RU HI P AN A MS 00 03 03 00 12 6 EA [...] & ICS PSC PHOSPHATE 3 MG ARTHROCEN 63392 MOISES ROBIN TESIS 7 ASPIR&/IN ORTHOPAED J MAJOR ICS PSC JT/BURSA W/O US RADIOLOGI 02669 [facility] ROBIN C EXAM 7 KNEE ORTHOPAED COMPLETE ICS PSC 4/MORE VIEWS PRTBLE E0431 [facility] LONG GASEOUS 7 HOME HOME O2 SYS MEDICAL MEDICAL RENT; EQUIPME EQUIPME FLWMTR HUMIDFR&M ASK O2 CONC 1 E1390 [facility] NEGRON 7 HOME HOME 85%/>02 MEDICAL MEDICAL CONC AT EQUIPME [place] [address] [facility] BARRERA TRACT UPR 7 MEDICAL W/SM INT IMAGING W/MULT ASS SERIAL IMAGES EXCISION [id number] [facility] STOMACH 7 [facility] PYLORUS INC INC JEANA/ART OPENING ENDO DX EXCISION [id number] [facility] STOMACH 7 [facility] VIA INC INC NATURAL/A RT OPENING ENDO DX EXCISION [id number] [facility] EG JUNCT 7 [facility]OS[facility] VIA JEANA INC INC ART OPENING ENDO DX EXCISION [id number] [facility] DUODENUM 7 [facility] VIA INC INC JEANA/ART OPENING ENDO DX ECG 92083 [facility] CHILDS ROUTINE 7 [facility] W/LEAST P 12 LDS I&[place] [address] [facility] XIOMY ABDOMEN & 7 MEDICAL PELVIS IMAGING W/O ASS CONTRAST MATERIAL O2 CONC 1 E1390 [facility] NEGRON 7 HOME HOME 85%/>02 MEDICAL MEDICAL CONC AT EQUIPME EQUIPME PRSC FLW RATE PRTBLE E0431 [facility] LONG GASEOUS 7 HOME HOME O2 SYS MEDICAL MEDICAL RENT; EQUIPME EQUIPME FLWMTR HUMIDFR&M ASK CV STRS 05290 [facility] TST 7 [facility] XERS&/OR INC INC RX CONT ECG TRCG ONLY INJECTION J2785 [facility] 7 [facility] REGADENOS INC INC ON 0.1 MG TECHNETIU A9502 [facility] [place] TC-99M 7 [facility] TETROFOSM INC INC IN DX PER STUDY DOSE MYOCARDIA 06191 [facility] L SPECT 7 [facility] MULTIPLE INC INC STUDIES PRTBLE E0431 [facility]ANIL LONG GASEOUS 7 HOME HOME O2 SYS MEDICAL MEDICAL RENT; EQUIPME EQUIPME FLWMTR HUMIDFR&M ASK O2 CONC 1 E1390 [facility] [place] 7 HOME HOME 85%/>02 MEDICAL MEDICAL CONC AT E[facility] FLW RATE INITIAL 49267 [facility] 7 PHYSICIAN CARE/DAY S GROUP 70 MINUTES ECG 49765 T[facility] CHILDS ROUTINE 7 [facility] W/LEAST P 12 LDS I&R ONLY RADIOLOGI 60962 [facility] C EXAM 7 MEDICAL CHEST 2 IMAGING VIEWS ASS FRONTAL&L ATERAL ECG 15217 [facility] CHILDS ROUTINE 7 [facility] W/LEAST P 12 LDS I&R ONLY ECG 57682 [facility] DOAN JR ROUTINE 7 [facility] W/LEAST P 12 LDS I&R ONLY RADIOLOGI 44175 [facility] C EXAM 7 MEDICAL CHEST 2 IMAGING VIEWS ASS FRONTAL&[place] [address] [facility] TROPONIN 7 [facility]OSP QUANTITAT INC INC KEMI BLOOD 85626 [facility] COUNT 7 [facility] COMPLETE INC INC AUTO&AUTO DIFRNTL WBC ECG 86683 [facility] ROUTINE 7 [facility]OS[facility] ECG INC INC W/LEAST 12 LDS TRCG ONLY W/O I&R COMPREHEN 91140 [facility] SIVE 7 [facility] METABOLIC INC INC PANEL O2 CONC 1 E1390 [facility] NEGRON 6 HOME HOME 85%/>02 MEDICAL MEDICAL CONC AT EQUIPME EQUIPME [facility] FLW RATE PRTBLE E0431 [facility] LANCASTERRELL GASEOUS 6 HOME HOME O2 SYS MEDICAL MEDICAL RENT; EQUIPME EQUIPME FLWMTR HUMIDFR&M ASK THYROID 56278 [facility] HORM 6 [facility] UPTK/THYR INC [place] [address] [facility] THYROXINE 6 [facility] TOTAL INC INC COLLECTIO 29041 [facility] N VENOUS 6 [facility] [place]LOOD [place] [address] TESS TESS THYROID 6 [facility] STIMULATI INC INC NG HORMONE TSH HEPATIC 94291 [facility]LE[facility] FUNCTION 6 [facility] PANEL INC INC ECG 71119 [facility] ROUTINE 6 [facility] ECG INC INC W/LEAST 12 LDS TRCG ONLY W/O I&R ECG 74921 [facility] MELANIE ROUTINE 6 PHYSICIAN MAT ECG S GROUP W/LEAST 12 LDS I&R ONLY CREATININ 53009 [facility]LEEN [facility] E BLOOD 6 [facility] INC INC CT THORAX 29698 [facility] ALL W/O 6 [place]ICAL [place] [address] [facility] UREA 6 [facility] NITROGEN INC INC QUANTITAT KEMI COLLECTIO 42159 [facility] N VENOUS 6 [facility] BLOOD INC INC VENIPUNCT URE PRTBLE E0431 [facility] LONG GASEOUS 6 HOME HOME O2 SYS MEDICAL MEDICAL RENT; EQUIPME EQUIPME FLWMTR HUMIDFR&M ASK O2 CONC 1 E1390 [facility] LONG DEL PORT 6 HOME HOME 85%/>02 MEDICAL MEDICAL CONC AT EQUIPME EQUIPME PRSC FLW RATE RADIOLOGI 90403 LEEANN BARRERA ALL C 6 MEDICAL EXAMINATI IMAGING [place] [address] [facility] B[facility] ALL ABDOMEN & 6 MEDICAL PELVIS IMAGING W/O ASS CONTRAST MATERIAL CULTURE 43251 [facility] BACTERIAL 6 [facility] INC INC QUANTTATI VE COLONY COUNT URINE THROMBOPL 37341 [facility] ASTIN 6 [facility] TIME INC INC PARTIAL PLASMA/WH OLE BLOOD THER 03556 [facility] PROPH/DX 6 [facility] NJX IV INC INC PUSH SINGLE/1S T SBST/DRUG PROTHROMB 70464 [facility] IN TIME 6 [facility] INC INC COMPREHEN 96656 [facility] SIVE 6 [facility] METABOLIC INC INC PANEL URNLS DIP 98341 [facility] 6 [facility] STICK/TAB INC INC LET REAGENT AUTO MICROSCOP Y BLOOD 01947 [facility] COUNT 6 [facility] COMPLETE INC INC AUTO&AUTO DIFRNTL WBC NATRIURET 81414 [facility] IC 6 [facility] PEPTIDE INC INC INJECTION J1040 [facility] CHUNG 1 DON DON METHYLPRE DNISOLONE ACETATE 80 MG ADMN SET A7003 YOUR YOUR SM VOL 1 PHARMACY PHARMACY NONFILTR [facility] PNEUMAT NEBULIZR DISPBL ALBUTEROL J7620 YOUR YOUR TO 2.5 1 PHARMACY PHARMACY [facility] IPRATROPI UM BROM TO 0.5 MG PHRM Q0513 YOUR YOUR DISPENSIN 1 PHARMACY PHARMACY G FEE [facility] INHALATIO N RX; PER 30 DAYS URNLS DIP 45327 JULIET CHUNG 1 DON DON STICK/TAB LET RGNT NON-AUTO W/O MICRSCP INJ J0702 JULIET CHUNG BETAMETHA 1 DON DON SONE ACETATE & PHOSPHATE 3 MG ADMN SET A7003 [facility] LONG SM VOL 1 HOME MED HOME [...] 85%/>02 EQUIP. L EQUIP. L CONC AT [facility] FLW RATE PRTBLE E0431 [facility] LONG GASEOUS 0 HOME MED HOME MED O2 SYS EQUIP. L EQUIP. L RENT; FLWMTR HUMIDFR&M ASK O2 CONC 1 E1390 [facility] LONG DEL PORT 0 HOME MED HOME MED 85%/>02 EQUIP. L EQUIP. L CONC AT [facility] FLW RATE BLOOD 12-17-201 95878 [facility] COUNT 0 [facility] COMPLETE INC INC AUTO&AUTO DIFRNTL WBC OBSERVATI 52876 JULIET BLUNTHENS ON CARE 0 DON DON DISCHARGE MANAGEMEN T TX PROC G0238 [facility] HENDRICKSON IMPRV 0 [facility] RESP INC INC FUNCT NOT G0237 FCE-FCE 15MIN COLLECTIO 92763 [facility] N VENOUS 0 [facility] BLOOD INC INC VENIPUNCT URE COLLECTIO 66323 [facility] N VENOUS 0 [facility] BLOOD INC INC VENIPUNCT URE LEVEL III 81901 PATHOLOGY PATHOLOGY SURG 0 & & PATHOLOGY CYTOLOGY CYTOLOGY LAB LAB GROSS&BOY ROSCOPIC EXAM ANES 73287 COMMUNITY BREEDING INTRAPERI 0 ANESTH SEAN TONEAL OF THE UPPER BLUE [place]BD[place]EN W/[place] [address] [facility] XIOMY ABDOMINAL 0 MEDICAL ARLETTE REAL IMAGING TIME ASS W/IMAGE LIMITED TX PROC G0238 [facility] IMPRV 0 [facility] RESP INC INC FUNCT NOT G0237 FCE-FCE 15MIN BASIC 84955 [facility] METABOLIC 0 [facility] PANEL INC INC CALCIUM TOTAL BLOOD 96890 [facility] COUNT 0 [facility] COMPLETE INC INC AUTO&AUTO DIFRNTL WBC LAPAROSCO 25108 T[facility] PY SURG 0 [facility] CHOLECYST INC INC ECTOMY INITIAL 97559 [facility]/DAY PSC 50 MINUTES THERAPEUT 62557 [facility] IC 0 [facility] INJECTION INC INC IV PUSH EACH NEW DRUG BLOOD 34160 [facility] COUNT 0 [facility] COMPLETE INC INC AUTO&AUTO DIFRNTL WBC INITIAL 57426 JULIET LIRAS OBSERVATI 0 DON DON ON CARE/DAY 50 MINUTES 3D 25100 [facility] RENDERING 0 [facility] INC INC W/INTERP& [place] [address] [facility] AMYLASE 0 [facility] INC INC COMPREHEN 20629 [facility] SIVE 0 [facility] [place] [place] [facility] METABOLIC INC INC PANEL THER 47999 [facility] PROPH/DX 0 [facility] NJX IV INC INC PUSH SINGLE/1S T SBST/[place] [address] [facility] LIPASE 0 [facility] [place] [place] [facility] INC INC HOSPITAL [id number] [facility] OBSERVATI 0 [facility] [place] [address] [facility] XIOMY ABDOMEN 0 MEDICAL ARLETTE W/O IMAGING CONTRAST ASS MATERIAL CT PELVIS 07735 [place] XIOMY W/O 0 MEDICAL [facility] CONTRAST IMAGING MATERIAL ASS RADIOLOGI 87020 JEWISH IMAM MOH C EXAM 0 CARDIOTHO CHEST 2 RACIC VIEWS SURGI FRONTAL&L ATERAL ADMINISTR G0009 JULIET CHUNG ATION OF 0 DON DON PNEUMOCOC KAISER VACCINE PPSV23 21005 JULIET CHUNG VACCINE 2 0 DON DON YRS OR OLDER FOR SUBQ/IM USE PRTBLE E0431 [facility] GASEOUS 0 HOME MED HOME MED O2 SYS EQUIP. L EQUIP. L RENT; FLWMTR HUMIDFR&M ASK O2 CONC 1 E1390 [facility] DEL PORT 0 HOME MED HOME MED 85%/>02 EQUIP. L EQUIP. L CONC AT PRSC FLW RATE RADIOLOGI 71217 BOISE SHI ADA C EXAM 0 RADIOLOGY CHEST 2 ASSOC VIEWS FRONTAL&L ATERAL RADIOLOGI 43585 BOISE BARRERA MAR C 0 RADIOLOGY EXAMINATI ASSOC ON CHEST SINGLE VIEW FRONTAL RADIOLOGI 14437 BOISE OSULLIVAN ADA C 0 RADIOLOGY EXAMINATI ASSOC ON CHEST SINGLE VIEW FRONTAL RADIOLOGI 54502 BOISE SHI ADA C 0 RADIOLOGY EXAMINATI ASSOC ON CHEST SINGLE VIEW FRONTAL RADEX 03368 BOISE TERRELL ABDOMEN 1 0 RADIOLOGY ELYSSA ASSOC ANTEROPOS TERIOR VIEW RADIOLOGI 90429 BOISE RICE THO C 0 RADIOLOGY EXAMINATI ASSOC ON CHEST SINGLE VIEW FRONTAL RADIOLOGI 17851 CENTRAL PIERRE J C 0 RADIOLOGY EXAMINATI ASSOC ON CHEST SINGLE VIEW FRONTAL LEVEL 95519 CHIPPS BENSEMA SURG 0 KRIS & MAR PATHOLOGY DUBILIER GROSS&BOY ROSCOPIC EXAM ANES 21446 CENTRAL SLAVA THORACOTO 0 [place] EDW MY & ANESTHESI THORACOSC A OPY W/1 LUNG VNTJ THORCOM 55638 JEWISH IMAM MOH THRC 0 CARDIOTHO W/MEDSTNL RACIC & SURGI REGIONAL LMPHADEC RMVL LUNG 95172 JEWISH IMAM MOH OTHER 0 CARDIOTHO THAN RACIC PNEUMONEC SURGI BRENDA 1 LOBE LOBECT PATH 44843 CHIPPS BENSEMA CONSLTJ 0 KRIS & MAR SURG 1ST DUBILIER BLK FROZEN SCTJ 1 SPEC LEVEL V 52188 CHIPPS BENSEMA SURG 0 KRIS & MAR PATHOLOGY DUBILIER GROSS&[place] [address] CHIPPS BENSEMA SURG 0 KRIS & MAR PATHOLOGY DUBILIER GROSS&BOY ROSCOPIC EXAM RADIOLOGI 82584 BOISE BARRERA MAR C EXAM 0 RADIOLOGY CHEST 2 ASSOC VIEWS FRONTAL&L ATERAL ECG 52863 [facility] ROUTINE 0 ORTH SILVIA ECG CARDIOLOG W/LEAST Y CONSULT 12 LDS I&R ONLY SPMTRY 57414 JEWISH SAAVEDRA W/VC 0 PULMONARY CESAR EXPIRATOR & Y FAMILIA CRITICAL W/WO MXML VOL VNTJ INJECTION J0690 CHUNG CHUNG 0 DON DON CEFAZOLIN SODIUM 500 MG IIV3 31447 CHUNG CHUNG VACCINE 0 DON DON SPLIT VIRUS 0.5 ML DOSAGE IM USE ADMINISTR G0008 CHUNG CHUNG ATION OF 0 DON DON INFLUENZA VIRUS VACCINE COMPUTER- 35506 [facility] XIOMY AIDED 0 MEDICAL ARLETTE DETECTION IMAGING ASS SCREENING MAMMOGRAP HY SCREENING G0202 [facility] XIOMY 0 MEDICAL ARLETTE MAMMOGRAP IMAGING HY CHRISTOPHER ASS INCL CAD WHEN PERFORMD FINE 62530 CENTRAL BARRERA MAR NEEDLE 0 RADIOLOGY ASPIRATIO ASSOC N WITH IMAGING GUIDANCE [facility] 00836 JEWISH UMBERTO GAR INCL 0 CARDIOTHO FLUOR RACIC GDNCE DX SURGI W/CELL WASHG SPX CYTP EVAL 21816 CHIPPS JAVON FINE 0 KRIS & CESAR NEEDLE DUBILIER ASPIRATE INTERP & REPORT CYTP FINE 06367 CHIPPS JAVON NDL 0 KRIS & CESAR ASPIRATE DUBILIER IMMT CYTOHIST STD DX 1ST [place] [address] CHIPPS PICKLESIM SURG 0 KRIS & ER JR LAVELL PATHOLOGY DUBILIER GROSS&BOY ROSCOPIC EXAM CYTP 86659 CHIPPS PICKLESIM SLCTV 0 KRIS & ER JR LAVELL CELL DUBILIER ENHANCEME NT INTERPJ XCPT C/[place] [address] [facility] GUIDANCE 0 RADIOLOGY NEEDLE ASSOC PLACEMENT RADIOLOGI 13792 [facility] C 0 RADIOLOGY EXAMINATI ASSOC ON CHEST SINGLE VIEW FRONTAL SPMTRY 97590 JEWISH UMBERTO GAR W/VC 0 CARDIOTHO EXPIRATOR RACIC Y FAMILIA SURGI W/WO MXML VOL VNTJ BLOOD 19523 [facility] OCCULT 0 [facility] E ACTV QUAL FECES 1 DETER SCR G0123 PATHOLOGY PATHOLOGY CYTOPATH 0 & & CERV/VAG CYTOLOGY CYTOLOGY SCR [place] [address] [facility] GUIDANCE 0 [facility] NEEDLE INC INC PLACEMENT 3D 15845 [facility] RENDERING 0 [facility] INC INC W/INTERP& [place] [address] [facility] INFUSION 0 [facility] THERAPY INC INC PROPHYLAX IS/DX EA HOUR CYTP EVAL 43391 PATHOLOGY PATHOLOGY FINE 0 & & NEEDLE CYTOLOGY CYTOLOGY ASPIRATE LAB LAB INTERP & REPORT CYTP FINE 30853 PATHOLOGY PATHOLOGY NDL 0 & & ASPIRATE CYTOLOGY CYTOLOGY IMMT LAB LAB CYTOHIST STD DX [address]ST CT THORAX 29899 [facility] W/O 0 [facility] CONTRAST INC INC MATERIAL RADIOLOGI 16543 [facility] C EXAM 0 [facility] CHEST 2 INC INC VIEWS FRONTAL&[place] [address] [facility] INFUSION 0 [facility] THERAPY/P INC INC ROPHYLAXI S /DX 1ST TO 1 HR MODERATE 43206 LEEANN STAUFFER SEDATJ 0 MEDICAL ARLETTE SAME IMAGING PHYS/QHP ASS 5/>YRS INIT 30 MIN MODERATE 03937 LEEANN STAUFFER SEDATJ 0 MEDICAL ARLETTE SAME IMAGING PHYS/QHP ASS EACH ADDL 15 MIN FINE 59592 [facility] NEEDLE 0 [facility] ASPIRATIO INC INC N WITH IMAGING GUIDANCE PROTHROMB 09869 TSES [facility] IN TIME 0 [facility] INC INC CREATININ 21025 [facility] E BLOOD 0 [facility] INC INC BLOOD 34259 [facility] COUNT 0 [facility] COMPLETE INC INC AUTO&AUTO DIFRNTL WBC THROMBOPL 65194 [facility] ASTIN 0 [facility] TIME INC INC PARTIAL PLASMA/[place] B[place] [address] [facility] UREA 0 [facility] NITROGEN INC INC QUANTITAT KEMI COLLECTIO 29631 TESS [facility] N VENOUS 0 [facility] BLOOD INC INC VENIPUNCT URE CT THORAX 33628 [facility] XIOMY 0 MEDICAL ARLETTE W/CONTRAS IMAGING T ASS MATERIAL RADEX 63352 [place] XIOMY RIBS UNI 0 MEDICAL ARLETTE W/POSTERO IMAGING ANT CH ASS MINIMUM 3 VIEWS 3D 36243 [facility] RENDERING 0 [facility] INC INC W/INTERP& POSTPROC DIFF WORK STATION BASIC 20505 [facility] METABOLIC 0 [facility] PANEL INC INC CALCIUM TOTAL BLOOD 17255 [facility] COUNT 0 [facility] COMPLETE INC INC AUTO&AUTO DIFRNTL WBC INJECTION J1040 CHUNG CHUNG 0 DON DON METHYLPRE DNISOLONE ACETATE 80 MG SCANNING 00901 DAMON JAVIER DAMON JAVIER OPHTHALMI 0 C IMAGING POSTERIOR SGM UNI OPHTH 77269 [facility] MEDICAL 0 XM&EVAL COMPRHNSV ESTAB PT 1/> RADEX 77153 [facility] FOOT 0 [facility] COMPLETE INC INC MINIMUM 3 [place] 15097 PATT ARIZMENDI PHLX/PHLG 0 EMERGENCY III, OTH/THN SERVICES NINI GRT TOE W/O MANJ ASSOCIATE S INJECTION J1040 JULIET CHUNG, 0 DON R DON R METHYLPRE DNISOLONE ACETATE 80 MG INJECTION J1040 JULIET CHUNG, 0 DON R DON R METHYLPRE DNISOLONE ACETATE 80 MG ECG 93331 TESS DOAN, ROUTINE 0 [facility] W/LEAST PROF SERV 12 LDS I&[place] [address] TSES [facility] TROPONIN 0 [facility] QUANTITAT INC INC KEMI ECG 27017 [facility] ROUTINE 0 [facility] ECG INC INC W/LEAST 12 LDS TRCG ONLY W/O I&R CREATINE 38342 [facility] KINASE 0 [facility] TOTAL INC INC CREATINE 90773 [facility] KINASE MB 0 [facility] FRACTION INC INC ONLY INJECTION J3420 JULIET CHUNG, VIT B-12 9 DON R DON R CYANOCOBA MAYANK TO 1000 MCG INJECTION J1040 JULIET CHUNG 9 DON R DON R METHYLPRE DNISOLONE ACETATE 80 MG INFLUENZA G9141 JULIET CHUNG A H1N1 9 DON R DON R IMMUNIZAT ION ADMINISTR ATION GLUC BLD 89356 [facility]/CO TESS GLUC MNTR [address] [place] [address] CLEARED BANK ACCT FDA SPEC HOME USE LIPID 02800 [facility] PANEL 9 [place] INC SCR G0123 PATHOLOGY PATHOLOGY CYTOPATH 9 & & CERV/VAG CYTOLOGY CYTOLOGY SCR LAB LAB CYTOTECH UND PHYS SUPV BLOOD 80511 [facility]/CO TESS OCCULT 9 [facility] E ACTV BANK ACCT QUAL FECES 1 DETER ADMINISTR G0008 JULIET CHUNG, ATION OF 9 DON R DON R INFLUENZA VIRUS VACCINE IIV3 14787 JULIET CHUNG, VACCINE 9 DON R DON R SPLIT VIRUS 0.5 ML DOSAGE IM USE 3D 59983 XIOMY STAUFFER, RENDERING 9 MAURY MAURY W/INTERP & [place] [address]32 XIOMY STAUFFER, SPINAL 9 MAURY MAURY CANAL CERVICAL W/O CONTRAST MATRL RADEX 80985 JULIET CHUNG, SPINE 9 DON R DON R CERVICAL 4 OR 5 VIEWS SCREENING 39125 [place] Star [facility] P MAMMOGRAP IMAGING HY ASSOCIATE BILATERAL S COMPUTER- 99498 [place] ANTONIO AIDED 9 MEDICAL BE P DETECTION IMAGING ASSOCIATE SCREENING S MAMMOGRAP HY ALBUTEROL J7620 YOUR YOUR TO 2.5 9 PHARMACY PHARMACY [employer] IPRATROPI UM BROM TO 0.5 MG PHRM Q0513 YOUR YOUR DISPENSIN 9 PHARMACY PHARMACY G [facility] [employer] INHALATIO N RX; PER 30 DAYS ADMN SET A7005 YOUR YOUR W/SM VOL 9 PHARMACY PHARMACY NONFILTR [employer] NEBULIZR NON-DISPB L RADIOLOGI 41505 [place] Vitor ALVAREZ EXAM 9 MEDICAL BE Raphael CHEST 2 IMAGING VIEWS ASSOCIATE FRONTAL&L S ATERAL INJECTION J1040 JULIET CHUNG 9 DON R DON R METHYLPRE DNISOLONE ACETATE 80 MG INJECTION J1040 JULIET CHUNG 9 DON R DON R METHYLPRE DNISOLONE ACETATE 80 MG OPHTH 13980 NELSON DAMON, MEDICAL 9 TIM A TIM A XM&EVAL COMPRE NEW PT 1/> VST INJECTION J1040 JULIET CHUNG 9 DON R DON R METHYLPRE DNISOLONE ACETATE 80 MG INJECTION J1040 CHUNG, CHUNG, 9 DON R DON R METHYLPRE DNISOLONE ACETATE 80 MG INJECTION J3420 JULIET CHUNG, VIT B-12 9 DON R DON R CYANOCOBA MAYANK TO 1000 MCG MAMMOGRAP 35045 [place] XIOMY, 9 MEDICAL MAURY UNILATERA IMAGING L ASSOCIATE S INJECTION J1040 UJLIET CHUNG, Star DON R DON R METHYLPRE DNISOLONE ACETATE 80 MG RADEX 17941 [place] ANTONIO, SPINE 8 MEDICAL BE P LUMBOSACR IMAGING AL ASSOCIATE MINIMUM 4 S VIEWS INJECTION J1040 JULIET CHUNG 8 DON R DON R METHYLPRE DNISOLONE ACETATE 80 MG ADMINISTR G0009 JULIET CHUNG, ATION OF 8 DON R DON R PNEUMOCOC KAISER VACCINE ADMINISTR G0008 JULIET CHUNG, ATION OF 8 DON R DON R INFLUENZA VIRUS VACCINE PPSV23 82553 JULIET CHUNG, VACCINE 2 8 DON R DON R YRS OR OLDER FOR SUBQ/IM USE IIV3 23312 JULIET CHUNG, VACCINE 8 DON R DON R SPLIT VIRUS 0.5 ML DOSAGE IM USE RADEX 22406 JULIET CHUNG, RIBS UNI 8 DON R DON R W/POSTERO ANT CH MINIMUM 3 VIEWS INJECTION J1040 JULIET CHUNG, Maria DON R DON R METHYLPRE DNISOLONE ACETATE 80 MG INJECTION J1040 JULIET CHUNG 8 DON R DON R METHYLPRE DNISOLONE ACETATE 80 MG COMPUTER- 75426 [place] XIOMY, AIDED 8 MEDICAL MAURY DETECTION IMAGING ASSOCIATE SCREENING S MAMMOGRAP HY SCREENING 60275 [place] XIOMY, MEDICAL MAURY MAMMOGRAP IMAGING HY ASSOCIATE BILATERAL S INJECTION J1040 JULIET CHUNG, Maria DON R DON R METHYLPRE DNISOLONE ACETATE 80 MG LIPID 79664 [facility]/CO TESS PANEL 8 [facility] BANK ACCT BLOOD 30344 DHS/CO TESS OCCULT 8 [facility] PEROXIDAS [facility] E ACTV BANK ACCT QUAL FECES 1 DETER CYTP 92560 [facility]/CO TESS CERV/VAG 8 [facility] AUTO THIN [facility] LAYER BANK ACCT PREP MNL SCREEN GLUC BLD 59776 [facility]/CO TESS GLUC MNTR 8 [facility] DEV [facility] CLEARED BANK ACCT FDA SPEC HOME USE MYOCRD 08407 JOSH ESCALANTE, PRFUJ STD 8 [facility] WALL CARDIOLOG MOTION Y ASSOC QUAL/MARLEE STD MYOCRD 27334 JOSH ESCALANTE, PRFUJ IMG 8 [facility] TOMOG CARDIOLOG SPECT HEADING REPAIRER Y ASSOC STD CV STRS 87058 JOSH ESCALANTE, TST 8 [facility] XERS&/OR CARDIOLOG RX CONT Y ASSOC ECG I&R ONLY CV STRS 81268 JOSH ESCALANTE, TST 8 [facility] XERS&/OR CARDIOLOG RX CONT Y ASSOC ECG W/O I&R MYOCRD 77688 JOSH ESCALANTE, PRFUJ STD 8 [facility] EJEC FXJ CARDIOLOG Y ASSOC HOSPITAL 57038 JOSH ESCALANTE, DISCHARGE 8 [facility] DAY CARDIOLOG MANAGEMEN Y ASSOC T 30 MIN/< DOP 69059 JOSH ESCALANTE ECHOCARD 8 [facility] COLOR CARDIOLOG FLOW Y ASSOC VELOCITY MAPPING ECHO 80620 JOSH ESCALANTE, TRANSTHOR 8 [facility] AC R-T 2D CARDIOLOG W/WO Y ASSOC M-MODE REC COMP INITIAL 60646 JOSH ESCALANTE, HOSPITAL 8 [facility] CARE/DAY CARDIOLOG 50 Y ASSOC MINUTES DOPPLER 97274 JOSH ESCALANTE ECHOCARD 8 [facility] PULSE CARDIOLOG WAVE Y ASSOC W/SPECTRA L DISPLAY RADIOLOGI 12875 Vitor LOAIZA MEDICAL MAURY EXAMINATI IMAGING ON CHEST ASSOCIATE SINGLE S VIEW FRONTAL AMB A0427 [facility] SERVICE 8 AMBULANCE AMBULANCE ALS SERVICE SERVICE EMERGENCY TRANSPORT LEVEL 1 THROMBOPL 38473 [facility] ASTIN 8 [facility] TIME INC INC PARTIAL PLASMA/WH OLE BLOOD BASIC 81268 [facility] METABOLIC 8 [facility] PANEL INC INC CALCIUM TOTAL GROUND A0425 [facility] MILEAGE 8 AMBULANCE AMBULANCE PER SERVICE SERVICE STATUTE MILE THER 82679 [facility] PROPH/DX 8 [facility] NJX EA INC INC SEQL IV PUSH SBST/DRUG CREATINE 60456 [facility] KINASE MB 8 [facility] FRACTION INC INC ONLY COLLECTIO 21606 [facility] N VENOUS 8 [facility] BLOOD INC INC VENIPUNCT URE ECG 49685 JOSH ESCALANTE, ROUTINE 8 [facility] B ECG CARDIOLOG W/LEAST Y ASSOC 12 LDS I&R ONLY BLOOD 57275 [facility] COUNT 8 [facility] COMPLETE INC INC AUTO&[place] [address] [facility] TROPONIN 8 [facility] QUANTITAT INC INC KEMI ECG 29836 [facility] ROUTINE 8 [facility] ECG INC INC W/LEAST 12 LDS TRCG ONLY W/O I&R THER 10211 [facility] PROPH/DX 8 [facility] NJX IV INC INC PUSH 1ST SBST/DRUG PROTHROMB 44727 [facility] IN TIME 8 [facility] INC INC CREATINE 34658 [facility] KINASE 8 [facility] TOTAL INC INC ECG 55723 [facility] ROUTINE 8 [facility] ECG INC INC W/LEAST 12 LDS TRCG ONLY W/O I&R ECG 45939 TESS LÓPEZ, ROUTINE 8 [facility] W/LEAST PROF SERV 12 LDS I&R ONLY RADIOLOGI 04066 Vitor LOAIZA EXAM 8 MEDICAL MA[facility]Y CHEST 2 IMAGING VIEWS ASSOCIATE FRONTAL&L S ATERAL INJECTION J1040 JULIET CHUNG, Maria DON R DON R METHYLPRE DNISOLONE ACETATE 80 MG PHRM Q0513 YOUR YOUR DISPENSIN 8 PHARMACY PHARMACY G [facility]EE [facility] INHALATIO N RX; PER 30 DAYS ALBUTEROL J7620 YOUR YOUR TO 2.5 8 PHARMACY PHARMACY [employer] [facility] IPRATROPI UM BROM TO 0.5 MG ADMN SET A7003 YOUR YOUR SM VOL 8 PHARMACY PHARMACY NONFILTR [facility] PNEUMAT NEBULIZR DISPBL INJECTION J1040 JULIET CHUNG, Maria DON R DON R METHYLPRE DNISOLONE ACETATE 80 MG INJECTION J1040 JULIET CHUNG, Maria DON R DON R METHYLPRE DNISOLONE ACETATE 80 MG NEBULIZER E0570 [facility] WITH 8 HOME MED HOME MED COMPRESSO [employer]. [employer]QU[employer] [facility] LLC NEBULIZER E0570 [facility] WITH 8 HOME MED HOME MED COMPRESSO [employer] Encounters Encounter Start End Date Code Location Performer Type Date OFFICE 12840 [facility] OUTPATIEN 7 7 T VISIT ORTHOPAED 15 ICS PSC MINUTES OFFICE 67176 [facility] MAURICE OUTPATIEN 7 7 PHYSICIAN T VISIT 5 S GROUP MINUTES OFFICE 12784 [facility] MAURICE OUTPATIEN 7 7 PHYSICIAN T VISIT S GROUP 10 MINUTES EMERGENCY 94014 RIKY ROJAS 7 7 PHYSICIAN JR [facility] S, [facility] T VISIT HIGH/URGE NT SEVERITY HOSPITAL TESS - [address] [facility] TESS - 7 7 [facility] OUTPATIEN [facility] TESS - 7 7 [facility]PAT[facility] EMERGENCY 71818 RIKY BUCKLEY DEPT 7 7 PHYSICIAN VISIT S, [facility] HIGH SEVERITY& THREAT FUNCJ OFFICE 21218 GAYE MENEZES OUTPATIEN 7 7 HEALTH T VISIT MEDICAL 15 GROUP MINUTES EMERGENCY 98082 TESS 7 7 [facility] DEPARTMEN INC T VISIT LOW/MODER SEVERITY HOSPITAL TESS - 7 7 [facility] OUTPATIEN INC T EMERGENCY 41652 [facility] [place] [facility] 7 7 PHYSICIAN VISIT S, [facility] HIGH SEVERITY& THREAT FUN HOSPITAL TESS - 6 6 [facility] OUTPATIEN INC T OFFICE 11018 [facility] OUTPATIEN 6 6 PHYSICIAN MAT T VISIT S GROUP 25 MINUTES HOSPITAL TESS - 6 6 [facility] OUTPATIEN INC T HOSPITAL TESS - 6 6 [facility] OUTPATIEN INC T HOSPITAL TESS - 6 6 [facility] OUTPATIEN INC T EMERGENCY 27900 TESS 6 6 [facility] DEPARTMEN INC T VISIT MODERATE SEVERITY EMERGENCY 54329 RIKY SHEEHAN 6 6 PHYSICIAN [facility] T VISIT HIGH/URGE NT SEVERITY Emergency RADHA Buckley MD (ER) 4 20:51 4 21:49 [facility] Emergency RADHA Arizmendi (ER) 3 18:37 3 20:17 [facility] Emergency RADHA Buckley MD (ER) 3 01:59 3 02:27 [facility] Emergency RADHA HEREDIA MD (ER) 3 15:08 3 16:37 [facility] OFFICE 88384 JULIET LIRAS OUTPATIEN 1 1 DON DON T VISIT 15 MINUTES OFFICE 21588 CHUNG CHUNG OUTPATIEN 1 1 DON DON T VISIT 15 MINUTES OFFICE 04313 CHUNG CHUNG OUTPATIEN 1 1 DON DON T VISIT 15 MINUTES OFFICE 09773 JULIET LIRAS OUTPATIEN 0 0 DON DON T VISIT 15 MINUTES EMERGENCY 49433 TESS 0 0 [facility] DEPARTMEN INC T VISIT HIGH/URGE NT SEVERITY HOSPITAL TESS - 0 0 [facility] OUTPATIEN INC T EMERGENCY 09951 PATT BUCKLEY DEPT 0 0 EMERGENCY BOY VISIT SERVICES HIGH SEVERITY& THREAT FUNCJ OFFICE 29712 JULIET LIRAS OUTPATIEN 0 0 DON DON T VISIT 15 MINUTES OFFICE 77718 JULIET LIRAS OUTPATIEN 0 0 DON DON T VISIT 15 MINUTES OFFICE 44385 JEWISH MOH OUTPATIEN 0 0 CARDIOTHO T VISIT RACIC 10 SURGI MINUTES HOSPITAL TESS - 0 0 [facility] OUTPATIEN INC T OFFICE 77083 JEWISH UMBERTO GAR OUTPATIEN 0 0 CARDIOTHO T VISIT RACIC 10 SURGI MINUTES OFFICE 97939 JEWISH UMBERTO GAR OUTPATIEN 0 0 CARDIOTHO T NEW 60 RACIC MINUTES SURGI PERIODIC 14020 [facility] PREVENTIV 0 0 [facility] HE[facility] E MED EST CENTER CENTER PATIENT 65YRS& OLDER HOSPITAL TESS - 0 0 [facility] OUTPATIEN INC T HOSPITAL TESS - 0 0 [facility] OUTPATIEN INC T OFFICE 08301 JULIET CHUNG OUTPATIEN 0 0 DON DON T VISIT 15 MINUTES EMERGENCY 74421 PATT HILLMAN DEPT 0 0 EMERGENCY VISIT SERVICES HIGH SEVERITY& THREAT FUNCJ EMERGENCY 81260 TESS 0 0 [facility] DEPARTMEN INC T VISIT MODERATE SEVERITY HOSPITAL TESS - 0 0 [facility] OUTPATIEN INC T OFFICE 33340 JULIET CHUNG OUTPATIEN 0 0 DON DON T VISIT 15 MINUTES OFFICE 18336 JULIET CHUNG, OUTPATIEN 0 0 DON R DON R T VISIT 15 MINUTES OFFICE 02822 JULIET CHUNG, OUTPATIEN 0 0 DON R DON R T VISIT 15 MINUTES EMERGENCY 85198 TESS 0 0 [facility] DEPARTMEN INC T VISIT LOW/MODER SEVERITY EMERGENCY 95612 PATT ARIZMENDI 0 0 EMERGENCY III, DEPARTMEN SERVICES NINI T VISIT MODERATE ASSOCIATE SEVERITY S HOSPITAL TESS - 0 0 [facility] OUTPATIEN INC T OFFICE 82819 JULIET CHUNG OUTPATIEN 0 0 DON R DON R T VISIT 15 MINUTES OFFICE 28995 JULIET CHUNG OUTPATIEN 0 0 DON R DON R T VISIT 15 MINUTES HOSPITAL TESS - 0 0 [facility] OUTPATIEN INC T EMERGENCY 11574 PATT ARIZMENDI 0 0 EMERGENCY III, DEPARTMEN SERVICES NINI T VISIT HIGH/URGE ASSOCIATE NT S SEVERITY EMERGENCY 62784 TESS 0 0 [facility] DEPARTMEN INC T VISIT LOW/MODER SEVERITY OFFICE 10913 JULIET CHUNG OUTJANISEN 9 9 DON R DON R T VISIT 15 MINUTES OFFICE 98657 [facility] T[facility] OUTPATIEN 9 9 [facility] T VISIT [facility] 15 BANK ACCT MINUTES PERIODIC 65977 DHS/CO TESS PREVENTIV 9 9 HEALTH CO [facility]ALTH E MED EST [facility] PATIENT BANK ACCT 66YRS& OLDER OFFICE 78750 JULIET CHUNG OUTJANISEN 9 9 DON R DON R T VISIT 15 MINUTES HOSPITAL TESS - 9 9 [facility] OUTPATIEN INC T EMERGENCY 97908 TESS 9 9 [facility] DEPARTMEN INC T VISIT LOW/MODER SEVERITY EMERGENCY 83753 PATT AQUINO, 9 9 EMERGENCY ANTONI R DEPARTMEN SERVICES T VISIT HIGH/URGE ASSOCIATE NT S SEVERITY HOSPITAL TESS - 9 9 [facility] OUTPATIEN INC T OFFICE 74338 JULIET CHUNG OUTPATIEN 9 9 DON R DON R T VISIT 15 MINUTES OFFICE 87794 JULIET CHUNG OUTPATIEN 9 9 DON R DON R T VISIT 15 MINUTES OFFICE 00910 JULIET CHUNG OUTPATIEN 9 9 DON R DON R T VISIT 15 MINUTES OFFICE 30981 JULIET CHUNG OUTPATIEN 9 9 DON R DON R T VISIT 15 MINUTES HOSPITAL TESS - 9 9 [facility] OUTPATIEN INC T OFFICE 21883 JULIET CHUNG OUTPATIEN 9 9 DON R DON R T VISIT 15 MINUTES OFFICE 19612 JULIET CHUNG OUTPATIEN 8 8 DON R DON R T VISIT 15 MINUTES OFFICE 09606 JULIET CHUNG OUTPATIEN 8 8 DON R DON R T VISIT 15 MINUTES HOSPITAL TESS - 8 8 [facility] OUTPATIEN INC T EMERGENCY 99697 TESS 8 8 [facility] DEPARTMEN INC T VISIT LOW/MODER SEVERITY OFFICE 41036 JULIET CHUNG OUTPATIEN 8 8 DON R DON R T VISIT 15 MINUTES OFFICE 09766 JULIET CHUNG OUTPATIEN 8 8 DON R DON R T VISIT 15 MINUTES OFFICE 23880 JULIET CHUNG OUTPATIEN 8 8 DON R DON R T VISIT 15 MINUTES HOSPITAL TESS - 8 8 [facility] OUTPATIEN INC T OFFICE 29810 JULIET CHUNG OUTPATIEN 8 8 DON R DON R T VISIT 15 MINUTES [facility] 02599 DHS/CO TESS PREVENTIV 8 8 [facility] E [facility] PATIENT BANK ACCT 66YRS& OLDER H[facility]PITAL TESS - 8 8 [facility] OUTPATIEN INC T EMERGENCY 31423 [facility] DEPT 8 8 [facility] VISIT INC HIGH SEVERITY& THREAT FUNCJ EMERGENCY 73139 GENEVIEVE FRANCIS, 8 8 [facility] T VISIT ON HIGH/URGE NT SEVERITY HOSPITAL TESS - 8 8 [facility] OUTPATIEN INC T OFFICE 34500 Johan WOODWARD 8 8 CARE G T VISIT ASSOCIATE 15 S MINUTES OFFICE 54725 Johan WOODWARD 8 8 CARE G T VISIT ASSOCIATE 15 S MINUTES OFFICE 57695 JULIET CHUNG OUTPATIEN 8 8 DON R DON R T VISIT 15 MINUTES OFFICE 34071 JULIET CHUNG OUTPATIEN 8 8 DON R DON R T VISIT 15 MINUTES OFFICE 95518 JULIET CHUNG OUTPATIEN 8 8 DON R DON R T VISIT 15 MINUTES OFFICE 81171 JULIET CHUNG OUTPATIEN 8 8 DON R DON R T VISIT 15 MINUTES
--- OUTSIDE RECORDS SUMMARY | 2017-01-18 10:22 | External Medical Summary Rpt ---
Author Author , Organization [employer] Address Unknown Phone Unavailable Care Team Providers Care Sports Athletic Trainer Name Role Phone SLAVA EDW, Unavailable Unavailable SLAVA EDW [facility] Unavailable Unavailable CARDI[facility], [facility] Unavailable Unavailable MEDICAL GROUP, [facility] PULMONARY & Unavailable Unavailable CRITICAL, [facility]ITICAL BENSEMA MAR, BENSEMA Unavailable Unavailable MAR BESKATRINA BESSON Unavailable Unavailable PANKAJ CHILDS A, Unavailable Unavailable PANKAJ CHILDS A [facility] Unavailable Unavailable [facility], [facility] BARRERA, BARRERA Unavailable Unavailable BARRERA ALL, BARRERA ALL Unavailable Unavailable BREEDING SEAN, Unavailable Unavailable BREEDING SEAN [facility] Unavailable Unavailable SERVICE, [facility] C PAULO SAMAYOA MD Unavailable Unavailable PSC, C PAULO SAMAYOA MD PSC ADRIANNE ESCALANTE, Unavailable Unavailable ADRIANNE ESCALANTE [facility] [place] Unavailable Un[place] [facility], [facility] [place] [facility] Unavailable Unavailable [facility], [facility] CLIF MENEZES Unavailable Unavailable [facility] & Unavailable Unavailable DUBILIER, [facility] OF Unavailable Unavailable [facility], [facility] Johan ARANDA COOPER, Unavailable Unavailable Johan FRANCOXIOMY, XIOMY Unavailable Unavailable XIOMY ARLETTE, Unavailable Unavailable XIOMY ARLETTE XIOMY, MAURY, Unavailable Unavailable XIOMY, MAURY UMBERTO GAR, UMBERTO GAR Unavailable Unavailable [facility] Unavailable Unavailable [place], [facility] [place] [facility] Unavailable [place] [facility] BARRERA MAR, BARRERA MAR Unavailable Unavailable JR ROJAS FULLER, Unavailable Unavailable ANKUR DANIELSON Unavailable Unavailable ANKUR NIEVES Unavailable Unavailable BOY ANTONI AQUINO, Unavailable Unavailable ANTONI AQUINO [facility] Unavailable Unavailable [place], [facility] Unavailable Unavailable [place], [facility] Unavailable Unavailable INC, [facility] Unavailable Unavailable HOSPITAL P, [facility] DELMIS LÓPEZ HARVEY, Unavailable Unavailable DELMIS DAMON JAVIER, DAMON JAVIER Unavailable Unavailable DAMON JAVIER, DAMON JAVIER Unavailable Unavailable NELSON, TIM A, Unavailable Unavailable NELSON, TIM A [facility], Unavailable Unavailable [facility] NANI SILVIA, Unavailable Unavailable NANI SILVIA ROBIN, ROBIN Unavailable Unavailable IMAM MOH, IMAM MOH Unavailable Unavailable JAVON CESAR, JAVON Unavailable Unavailable CESAR TERRELL ELYSSA, TERRELL Unavailable Unavailable ELYSSA [facility] Un[facility] Unavailable [facility], [facility], Unavailable Unavailable [facility] FRANKI, SHAWN E, Unavailable Unavailable FRANKI, SHAWN E [facility] Unavailable Unavailable SERVICES, [facility] BE ALVAREZ, Unavailable Unavailable BE [...] MELANIE MAT, Unavailable Unavailable MELANIE MAT GABBY J, GABBY J Unavailable Unavailable OSULLIVAN ADA, OSULLIVAN ADA Unavailable Unavailable SOKAN BAB, SOKAN BAB Unavailable Unavailable SOKAN, TRISTA O, Unavailable Unavailable SOKAN, TRISTA O [facility] Unavailable Unavailable [facility], [facility] Unavailable Un[facility], [facility] Unavailable Unavailable [facility], [facility] Unavailable Unavailable [facility], [facility] Unavailable [facility]available EQU[facility], [facility] SOTINGEANU PEYTON, Unavailable Unavailable SOTINGEANU PEYTON CHUNG DON, Unavailable Unavailable CHUNG BERNY CHUNG DON, Unavailable Unavailable CHUNG BERNY VENTURA R, Unavailable Unavailable BERNY CHUNG, Unavailable Unavailable NINI SWANSON III, Unavailable Unavailable NINI PLUMMER III [facility], Unavailable Unavailable [facility], Unavailable Unavailable [facility] Purpose Continuity of Care Document - 08-18-2007 through 2016 Problems Code Diagnosis DOS Provider Status 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 D62 ACUTE 11-10-2016 [facility] POSTHEMORRH PHYSICIANS AGIC ANEMIA GROUP I4891 UNSPECIFIED 11-10-2016 [facility] ATRIAL PHYSICIANS FIBRILLATIO GROUP N K921 MELENA 11-10-2016 [facility] PHYSICIANS GROUP Z1211 ENCOUNTER 11-10-2016 [facility] SCREENING PHYSICIANS MALIGNANT GROUP NEOPLASM OF COLON K2990 GASTRODUODE 10-28-2016 [facility] NITIS PHYSICIANS UNSPECIFIED GROUP WITHOUT BLEEDING R911 SOLITARY 10-27-2016 [facility] P[facility] NODULE MEDICAL EQUIPME K922 GASTROINTES 10-21-2016 [place] TINAL [facility]ICAL HEMORRHAGE IMAGING ASS UNSPECIFIED I480 PAROXYSMAL 10-20-2016 [facility] P N Z7901 SNF 10-20-2016 [place] CURRENT USE [facility] P ANTICOAGULA NTS 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, ANEMIA SEC PLLC TO BLOOD LOSS CHRONIC 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 K2980 DUODENITIS 10-17-2016 [facility] WITHOUT [facility] BLEEDING INC K449 DIAPHRAGMAT 10-17-2016 [facility] IC HERNIA [facility] W/O INC OBSTRUCTION OR GANGRENE K5730 DIVERTICULO 10-17-2016 [place] SIS LG MEDICAL INTEST W/O IMAGING ASS PERF/ABSC W/O BLEED R109 UNSPECIFIED 10-17-2016 [place] ABDOMINAL MEDICAL PAIN IMAGING ASS R0602 SHORTNESS 09-02-2016 [facility] OF BREATH [facility] INC R079 CHEST PAIN 09-02-2016 [facility] UNSPECIFIED [facility] INC E785 HYPERLIPIDE 08-24-2016 [facility] MORENA PHYSICIANS UNSPECIFIED GROUP I10 ESSENTIAL 08-24-2016 [facility] PRIMARY PHYSICIANS HYPERTENSIO GROUP N J449 CHRONIC 08-24-2016 [facility] OBSTRUCTIVE PHYSICIANS PULMONARY GROUP DISEASE UNS C3411 MALIGNANT 08-22-2016 [facility] NEOPLASM [facility] UPPER LOBE INC RT BRONCHUS/DELFINA NG R072 PRECORDIAL 08-22-2016 [facility] PAIN PHYSICIANS, PLLC Q37117 PERSONAL HX 08-22-2016 [facility] MEDICAL NEOPLASM IMAGING ASS BRONCHUS & LUNG Z36873 PERSONAL 08-22-2016 [facility] HISTORY OF [facility] NICOTINE INC DEPENDENCE Z720 TOBACCO USE 08-14-2016 [facility] MEDICAL GROUP Z902 ACQUIRED 08-14-2016 [facility] LUNG MEDICAL GROUP J209 ACUTE 08-11-2016 [facility] BRONCHITIS PHYSICIANS, UNSPECIFIED PLLC J440 COPD WITH 08-11-2016 [facility] ACUTE LOWER [facility] INC RESPIRATORY INFECTION K219 GASTRO-ESOP 08-11-2016 [facility] P WITHOUT ESOPHAGITIS R05 COUGH 08-11-2016 [facility] I119 HYPERTENSIV 07-14-2016 [facility] E HEART PHYSICIANS DISEASE GROUP WITHOUT HEART FAILURE J439 EMPHYSEMA 07-09-2016 [place] UNSPECIFIED MEDICAL IMAGING ASS D649 ANEMIA 06-07-2016 [facility] UNSPECIFIED PHYSICIANS, [facility] E876 HYPOKALEMIA 06-07-2016 [facility], [facility] N19 UNSPECIFIED 06-07-2016 [facility] KIDNEY [facility] FAILURE INC N3001 ACUTE 06-07-2016 [facility] CYSTITIS PHYSICIANS, WITH [facility] HEMATURIA R319 HEMATURIA 06-07-2016 [facility] UNSPECIFIED PHYSICIANS, PLLC 4659 ACUTE URIS 11-08-2010 [facility] OF DON UNSPECIFIED SITE 4660 ACUTE 11-08-2010 [facility] BRONCHITIS DON 496 CHRONIC 11-03-2010 [facility] NEC 35703 OTHER 09-30-2010 [facility] SPECIFIED DON DISORDERS OF URINARY TRACT 51090 CHRONIC 09-30-2010 [facility] FATIGUE DON SYNDROME 66473 ASTHMA, 08-26-2010 [facility] UNSPECIFIED [facility] MED , EQUIP. L UNSPECIFIED STATUS 462 ACUTE 08-23-2010 [facility] PHARYNGITIS DON 7862 COUGH 08-23-2010 [facility] DON V5831 ENCOUNTER 07-23-2010 [facility] CHANGE/CORAZON DON OMAR SURGICAL WOUND DRESSING 4019 UNSPECIFIED 07-17-2010 Vitor ELLIS MD PSC N 29896 CALCU 07-17-2010 PATHOLOGY & [facility] CYTOLOGY W/OTH LAB CHOLECYST W/O MENTION OBST 35353 CHOLECYSTIT 07-17-2010 COMMUNITY IS, ANESTH OF UNSPECIFIED THE BLUE 1629 MALIGNANT 07-16-2010 [facility] NEOPLASM [facility] BRONCHUS&DELFINA INC NG UNSPEC SITE 23355 CALCU 07-16-2010 [facility]ADD [facility] W/ACUT INC CHOLCYST W/O MENTION OBST 58934 CALCU 07-16-2010 [place] [facility] MED[facility] W/O MENTION IMAGING ASS CHOLECYST/O BST 5758 OTHER 07-16-2010 [facility] SPECIFIED [facility]ERGENCY DISORDER OF SERVICES GALLBLADDER V5869 LONG-TERM 07-16-2010 [facility] (CURRENT) [facility] USE OF INC OTHER MEDICATIONS V0382 NEED PROPH 06-23-2010 [facility] VACCINATION DON AGAINST STREP PNEUMONE 1623 MALIGNANT 06-10-2010 [facility] NEOPLASM KRIS & UPPER LOBE DUBILIER BRONCHUS OR LUNG 7866 SWELLING, 06-10-2010 [facility] MASS, OR CARDIOTHORA LUMP IN CIC SURGI CHEST 7869 OTH 06-10-2010 [facility] [place] SYMPTOMS ANESTHESIA INVOLVING RESPIRATORY SYSTEM&CHES T [address] OTHER 06-09-2010 [facility] DISEASES OF RADIOLOGY LUNG NOT ASSOC ELSEWHERE CLASSIFIED 5601 PARALYTIC 06-09-2010 [facility] ILEUS RADIOLOGY ASSOC 27902 SHORTNESS 06-09-2010 [facility] OF BREATH PULMONARY & CRITICAL 60474 ABNORMAL 06-09-2010 [facility] ARTERIAL RADIOLOGY BLOOD GASES ASSOC V5882 ENCOUNTER 06-09-2010 [facility] FITTING&ADJ RADIOLOGY ASSOC NON-VASCULA R CATHETER NEC V0481 NEED 05-06-2010 [facility] PROPHYLACTI DON C VACCINATION &INOCULATIO N FLU V7612 OTHER 04-25-2010 [place] SCREENING MEDICAL MAMMOGRAM IMAGING ASS 6228 OTHER 04-11-2010 PATHOLOGY & SPECIFIED CYTOLOGY NONINFLAMMA LAB TORY DISORDER CERVIX V1582 PERS HX 04-11-2010 [facility] UT TOBACCO [facility]ALTH V1589 OTH SPEC 04-11-2010 PATHOLOGY & PERS HX CYTOLOGY PRESENTING LAB HAZARDS HEALTH OTH V700 ROUTINE 04-11-2010 [facility] EXAM@HEALTH CARE FACL V7231 ROUTINE 04-11-2010 [facility] CO [facility] EXAMINATION V7643 SCREENING 04-11-2010 [facility] NEOPLASM OF THE SKIN 2357 NEOPLASM 03-26-2010 [facility] UNCERTAIN [facility] BEHAVIOR INC TRACH BRONCHUS&DELFINA NG 2875 UNSPECIFIED 03-25-2010 [place] [facility] THROMBOCYTO INC PENIA 490 BRONCHITIS 03-19-2010 [facility] NOT EMERGENCY SPECIFIED SERVICES ACUTE OR CHRONIC 7336 TIETZES 03-19-2010 [facility] DISEASE [facility]ENCY SERVICES 9221 CONTUSION 03-19-2010 [facility] MEDICAL WALL IMAGING ASS 4618 OTHER ACUTE 03-17-2010 [facility] SINUSITIS DON 33685 SPRAIN AND 01-01-2010 [facility], STRAIN OF DON R UNSPECIFIED SITE OF FOOT 74094 BORDERLINE 12-23-2009 DAMON JAVIER GLAUC OPEN ANGLE BL FINDINGS LOW RSK 95264 NUCLEAR 12-23-2009 DAMON JAVIER SCLEROSIS 76342 UNSPECIFIED 12-23-2009 [facility], SITE OF DON R ANKLE SPRAIN AND STRAIN 27828 PAIN IN 12-21-2009 [place] JOINT, MEDICAL ANKLE AND IMAGING FOOT ASSOCIATES 8260 CLOSED 12-21-2009 [facility] FRACTURE OF EMERGENCY ONE OR SERVICES MORE ASSOCIATES PHALANGES OF FOOT E8859 FALL FROM 12-21-2009 [facility] OTHER EMERGENCY SLIPPING SERVICES TRIPPING OR ASSOCIATES STUMBLING 4610 ACUTE 11-01-2009 [facility], MAXILLARY DON R SINUSITIS 24331 SPASM OF 09-10-2009 [facility], MUSCLE DON R 94437 CHEST PAIN 09-07-2009 [place] UNSPECIFIED [facility] PROF SERV 8408 SPRAIN&STRA 09-07-2009 [place] IN OTH SPEC [facility] SHOULDER&UP PROF SERV PER ARM 8409 SPRAIN&STRA 09-07-2009 [facility] IN UNSPEC EMERGENCY SITE SERVICES SHOULDER&UP ASSOCIATES PER ARM 2729 UNSPECIFIED 05-21-2009 [facility] DISORDER HEALTH OF LIPOID [facility]AL METABOLISM BANK ACCT V771 SCREENING 05-21-2009 [facility] FOR HEALTH DIABETES [facility]AL MELLITUS BANK ACCT V762 SCREENING 04-23-2009 PATHOLOGY & FOR CYTOLOGY MALIGNANT LAB NEOPLASM OF THE CERVIX 7231 CERVICALGIA 04-11-2009 [facility] STAUFFER 96201 PAIN IN 04-10-2009 [facility], JOINT, DON R SHOULDER REGION 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[facility], 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 51981 PNEUMONIA 03-04-2009 [facility], DUE TO DON R OTHER SPECIFIED BACTERIA 58247 OTHER CHEST 02-23-2009 [facility] PAIN [facility] 67713 OSTEOARTHRO 01-11-2009 [facility], S UNSPEC DON R GEN/LOC OT SPEC SITES 88039 DEGEN 01-11-2009 [facility], 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 2720 PURE 11-09-2008 [facility], HYPERCHOLES DON R TEROLEMIA 86799 LUMP OR 09-28-2008 [facility] MASS IN [facility] [place] BREAST INC 58308 UNSPECIFIED 09-28-2008 [place] ABNORMAL MEDICAL MAMMOGRAM IMAGING ASSOCIATES 7242 LUMBAGO 07-20-2008 BERNY CHUNG 27786 DISORDER OF 07-20-2008 JULIET BONE AND BERNY Leon CARTILAGE UNSPECIFIED 8472 LUMBAR 07-06-2008 JULIET SPRAIN AND BERNY Leon STRAIN 28953 UNSPECIFIED 06-20-2008 BERNY CH[facility]G CONJUNCTIVI TIS 4779 ALLERGIC 04-07-2008 JULIET RHINITIS BERNY Leon CAUSE UNSPECIFIED 31757 DIAB W/OTH 03-06-2008 [facility] COMA TYPE HEALTH II/UNS NOT [facility]AL STATED BANK ACCT UNCNTRL 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 74 EP ti ET 31 7- 7- 00 SI 47 HE ve SIDDIQUI 58 20 20 0 DE NS ZI 85 10 10 NE 8 PH DO AR N VC MA R -C CY OD EI OF NE CY SY NT RU HI P AN A SC 00 03 03 00 12 6 EA [...] t er Refuse d PPSV23 STEPHE No 2010 NS DON VACCIN E 2 YRS OR [...] SUBQ/I M USE IIV3 STEPHE No VACCIN 2007 NS, E DON R SPLIT VIRUS 0.5 ML DOSAGE IM USE Procedures Procedure DOS Code Location Performer Comment ARTHROCEN 76344 MOISES ROBIN TESIS 7 ASPIR&/IN ORTHOPAED J MAJOR ICS PSC JT/BURSA W/O US RADIOLOGI 68388 MOISES ROBIN C EXAM 7 KNEE ORTHOPAED COMPLETE ICS PSC 4/MORE VIEWS INJ J0702 MOISES ROBIN BETAMETHA 7 SONE ORTHOPAED ACETATE & ICS PSC PHOSPHATE 3 MG PRTBLE E0431 [facility] GASEOUS 7 HOME HOME O2 SYS MEDICAL MEDICAL RENT; EQUIPME EQUIPME FLWMTR HUMIDFR&M ASK O2 CONC 1 E1390 [facility] [place] PORT 7 HOME HOME 85%/>02 MEDICAL MEDICAL CONC AT EQUIPME [place] [address] [place] TRACT UPR 7 MEDICAL W/SM INT IMAGING W/MULT ASS SERIAL IMAGES ECG 03690 [facility] CHILDS ROUTINE 7 [facility] W/LEAST P 12 LDS I&R ONLY EXCISION [id number] [facility] STOMACH 7 [facility] VIA INC INC NATURAL/A RT OPENING ENDO DX EXCISION [id number] [facility] STOMACH 7 [facility] PYLORUS INC INC JEANA/ART OPENING ENDO DX EXCISION [id number] [facility] EG JUNCT 7 [facility] VIA JEANA INC INC ART OPENING ENDO DX EXCISION [id number] [facility] DUODENUM 7 [facility] VIA INC INC JEANA/[place] [address] [facility] ABDOMEN & 7 MEDICAL PELVIS IMAGING W/O ASS CONTRAST MATERIAL PRTBLE E0431 [facility] GASEOUS 7 HOME HOME O2 SYS MEDICAL MEDICAL RENT; EQUIPME EQUIPME FLWMTR HUMIDFR&M ASK O2 CONC 1 E1390 [facility] [place] 7 HOME HOME 85%/>02 MEDICAL MEDICAL CONC AT EQUIPME EQUIPME [facility] FLW RATE TECHNETIU A9502 [facility] [place] TC-99M 7 [facility] TETROFOSM INC INC IN DX PER STUDY DOSE MYOCARDIA 75156 [facility] [place]illo SPECT 7 [facility] MULTIPLE INC INC STUDIES CV STRS 20634 [facility] TST 7 [facility] XERS&/OR INC INC RX CONT ECG TRCG ONLY INJECTION J2785 [facility] 7 [facility] REGADENOS INC INC ON 0.1 MG O2 CONC 1 E1390 [facility] [place] 7 HOME HOME 85%/>02 MEDICAL MEDICAL CONC AT EQUIPME EQUIPME PRS FLW RATE PRTBLE E0431 [facility] LAN[place]STERRELL GASEOUS 7 HOME HOME O2 SYS MEDICAL MEDICAL RENT; EQUIPME EQUIPME FLWMTR HUMIDFR&M ASK INITIAL 36275 [facility] 7 PHYSICIAN CARE/DAY S GROUP 70 MINUTES ECG 56916 [facility] CHILDS ROUTINE 7 [facility] W/LEAST P 12 LDS I&R ONLY ECG 89882 [facility] ROUTINE 7 PHYSICIAN ECG S, PLLC W/LEAST 12 LDS I&R ONLY RADIOLOGI 07865 [facility] C EXAM 7 MEDICAL CHEST 2 IMAGING VIEWS ASS FRONTAL&L ATERAL COMPREHEN 27634 [facility] SIVE 7 [facility] METABOLIC INC INC PANEL RADIOLOGI 05782 [facility] C EXAM 7 PHYSICIAN CHEST 2 S, PLLC VIEWS FRONTAL&L ATERAL ECG 69830 [facility] ROUTINE 7 PHYSICIAN ECG S, PLLC W/LEAST 12 LDS I&R ONLY ECG 05994 [facility] ROUTINE 7 [facility] ECG INC INC W/LEAST 12 LDS TRCG ONLY W/O I&[place] [address] [facility] TROPONIN 7 [facility] QUANTITAT INC INC KEMI BLOOD 89278 [facility] COUNT 7 [facility]OSP COMPLETE INC INC AUTO&AUTO DIFRNTL WBC PRTBLE E0431 [facility] GASEOUS 6 HOME HOME O2 SYS MEDICAL MEDICAL RENT; EQUIPME EQUIPME FLWMTR HUMIDFR&M ASK O2 CONC 1 E1390 [facility] [place] 6 HOME HOME 85%/>02 MEDICAL MEDICAL CONC AT EQUIP[place] [address] [facility] THYROXINE 6 [facility] TOTAL INC INC COLLECTIO 95290 [facility] N VENOUS 6 [facility] HOSP [place]LO[place] [address] [facility] THYROID 6 [facility]OS[facility] STIMULATI INC INC NG HORMONE TSH HEPATIC 74999 T[facility] FUNCTION 6 [facility] PANEL INC INC THYROID 34761 [facility] HORM 6 [facility]OS[facility] UPTK/THYR INC INC OID HORMONE BINDING RATIO ECG 27366 [facility] MELANIE ROUTINE 6 PHYSICIAN MAT ECG S GROUP W/LEAST 12 LDS I&R ONLY ECG 41815 [facility] ROUTINE 6 [facility]OSP ECG INC INC W/LEAST 12 LDS TRCG ONLY W/O I&R CREATININ 28761 [facility] E BLOOD 6 [facility] INC INC COLLECTIO 49746 T[facility] N VENOUS 6 [facility] [place] [address] [facility] UREA 6 [facility] NITROGEN INC INC QUANTITAT KEMI CT THORAX 96674 [place] ALL W/O 6 MEDICAL CONTRAST IMAGING MATERIAL ASS PRTBLE E0431 [facility] GASEOUS 6 HOME HOME O2 SYS MEDICAL MEDICAL RENT; EQUIPME EQUIPME FLWMTR HUMIDFR&M ASK O2 CONC 1 E1390 [facility] [place] PORT 6 HOME HOME 85%/>02 MEDICAL MEDICAL CONC AT EQUIPME EQUIPME PRSC FLW RATE THROMBOPL 62847 [facility] ASTIN 6 [facility] TIME INC INC PARTIAL PLASMA/WH OLE BLOOD CULTURE 10503 [facility] BACTERIAL 6 [facility] INC INC QUANTTATI VE COLONY COUNT URINE RADIOLOGI 00425 [facility] ALL C 6 MEDICAL EXAMINATI IMAGING ON CHEST ASS SINGLE VIEW FRONTAL COMPREHEN 63355 [facility] SIVE 6 [facility] METABOLIC INC INC PANEL PROTHROMB 67172 [facility] IN TIME 6 [facility] INC INC THER 47289 T[facility] PROPH/DX 6 [facility] NJX IV INC INC PUSH SINGLE/1S T SBST/[place] [address] LEEANN [facility] ALL ABDOMEN & 6 MEDICAL PELVIS IMAGING W/O ASS CONTRAST MATERIAL NATRIURET 92537 [facility] IC 6 [facility] PEPTIDE INC INC BLOOD 23152 [facility] COUNT 6 [facility] COMPLETE INC INC AUTO&AUTO DIFRNTL WBC URNLS DIP 14980 [facility] 6 [facility] STICK/TAB INC INC LET REAGENT AUTO MICROSCOP Y INJECTION J1040 JULIET CH[facility]G 1 DON DON METHYLPRE DNISOLONE ACETATE 80 MG PHRM Q0513 YOUR YOUR DISPENSIN 1 PHARMACY PHARMACY G FEE [employer] INHALATIO N RX; PER 30 DAYS ALBUTEROL J7620 YOUR YOUR TO 2.5 1 PHARMACY PHARMACY [employer] IPRATROPI UM BROM TO 0.5 MG ADMN SET A7003 YOUR YOUR SM VOL 1 PHARMACY PHARMACY NONFILTR [employer] PNEUMAT NEBULIZR DISPBL URNLS DIP 99450 JULIET CHUNG 1 DON DON STICK/TAB LET [...] 85%/>02 EQUIP. L EQUIP. L CONC AT [facility] FLW RATE O2 CONC 1 E1390 [facility] [place] 0 HOME MED HOME MED 85%/>02 EQUIP. L EQUIP. L CONC AT [facility] FLW RATE PRTBLE E0431 [facility] GASEOUS 0 HOME MED HOME MED O2 SYS EQUIP. L EQUIP. L RENT; FLWMTR HUMIDFR&M ASK BLOOD 19264 [facility] COUNT 0 [facility] COMPLETE INC INC AUTO&AUTO DIFRNTL WBC OBSERVATI 49970 JULIET CHUNG ON CARE 0 DON DON DISCHARGE MANAGEMEN T TX PROC G0238 [facility] IMPRV 0 [facility] RESP INC INC FUNCT NOT G0237 FCE-FCE 15MIN COLLECTIO 32902 [facility] N VENOUS 0 [facility] BLOOD INC INC VENIPUNCT URE LEVEL III 53691 PATHOLOGY PATHOLOGY SURG 0 & & PATHOLOGY CYTOLOGY CYTOLOGY LAB LAB GROSS&BOY ROSCOPIC EXAM COLLECTIO 83403 [facility] N VENOUS 0 [facility] BLOOD INC INC VENIPUNCT URE TX PROC G0238 [facility] IMPRV 0 [facility] RESP INC INC FUNCT NOT G0237 FCE-FCE 15MIN BASIC 89108 [facility] METABOLIC 0 [facility] [place] [address] [facility] ABDOMINAL 0 [facility] REAL INC INC TIME W/IMAGE LIMITED BLOOD 03296 [facility] COUNT 0 [facility] COMPLETE INC INC AUTO&AUTO DIFRNTL WBC INITIAL 56583 C [facility] 0 DANITA SINGH CARE/DAY PSC 50 MINUTES LAPAROSCO 49747 C [facility] PY SURG 0 AARONBETSEY SINGH CHOLECYST PSC ECTOMY ANES 62748 COMMUNITY BREEDING INTRAPERI 0 ANESTH SEAN TONEAL OF THE UPPER BLUE ABDOM[place] [address] [facility] LIPASE 0 [facility] INC INC THER 80998 [facility] PROPH/DX 0 [facility] [place] NJX IV INC INC PUSH SINGLE/1S T SBST/DRUG THERAPEUT 12651 [facility] IC 0 [facility] [place] INJECTION INC INC IV PUSH EACH NEW DRUG BLOOD 08086 [facility] COUNT 0 [facility] COMPLETE INC INC AUTO&AUTO DIFRNTL WBC INITIAL 85037 CHUNGFredy CHUNG OBSERVATI 0 DON DON ON CARE/DAY [address] PELVIS 21133 T[facility] W/O 0 [facility] [place] CONTRAST INC INC MATERIAL 3D 02537 [facility] RENDERING 0 [facility] [place] INC INC W/INTERP& POSTPROC DIFF WORK STATION COMPREHEN 79846 [facility] SIVE 0 [facility] [place] [place] [address] [facility] AMYLASE 0 [place] [address] [facility] ABDOMEN 0 [facility] W/O INC INC CONTRAST [facility] G0378 [facility] OBSERVATI 0 [facility] [place] ON INC INC SERVICE PER HOUR RADIOLOGI 96410 [facility] EXAM 0 CARDIOTHO CHEST 2 RACIC VIEWS SURGI FRONTAL&L ATERAL ADMINISTR G0009 JULIET CHUNG ATION OF 0 DON DON PNEUMOCOC KAISER VACCINE PPSV23 96177 JULIET CHUNG VACCINE 2 0 DON DON YRS OR OLDER FOR SUBQ/IM USE PRTBLE E0431 [facility] GASEOUS 0 HOME MED HOME MED O2 SYS EQUIP. L EQUIP. L RENT; FLWMTR HUMIDFR&M ASK O2 CONC 1 E1390 [facility] [place] 0 HOME MED HOME MED 85%/>02 EQUIP. L EQUIP. L CONC AT [facility] FLW RATE RADIOLOGI 79359 [facility] TERRELL C EXAM 0 RADIOLOGY ELYSSA CHEST 2 ASSOC VIEWS FRONTAL&L ATERAL RADIOLOGI 70934 [facility] [place] MAR C 0 RADIOLOGY EXAMINATI ASSOC ON CHEST SINGLE VIEW FRONTAL RADIOLOGI 14724 [facility] OSULLIV[facility] ADA C 0 RADIOLOGY EXAMINATI ASSOC ON CHEST SINGLE VIEW FRONTAL RADIOLOGI 44724 [facility] OS[facility]IV[facility] ADA C 0 RADIOLOGY EXAMINATI ASSOC ON CHEST SINGLE VIEW FRONTAL RADEX 95008 CEN[facility] TERRELL ABDOMEN 1 0 RADIOLOGY ELYSSA ASSOC ANTEROPOS TERIOR VIEW RADIOLOGI 66198 C[facility] RICE THO C 0 RADIOLOGY EXAMINATI ASSOC ON CHEST SINGLE VIEW FRONTAL LEVEL 27129 CHIPPS BENSEMA SURG 0 KRIS & MAR PATHOLOGY DUBILIER GROSS&BOY ROSCOPIC EXAM RADIOLOGI 05987 [facility]EN[facility]AL PIERRE J C 0 RADIOLOGY EXAMINATI ASSOC [place] [address] CHIPPS BENSEMA SURG 0 KRIS & MAR PATHOLOGY DUBILIER GROSS&BOY ROSCOPIC [place]EL V 06226 [facility] BENSEMA SURG 0 KRIS & MAR PATHOLOGY DUBILIER GROSS&BOY ROSCOPIC EXAM PATH 43500 [facility] BENSEMA CONSLTJ 0 KRIS & MAR SURG 1ST DUBILIER BLK FROZEN SCTJ 1 SPEC RMVL LUNG 01974 ORTHODOXY UMBERTO GAR OTHER 0 CARDIOTHO THAN RACIC PNEUMONEC SURGI BRENDA 1 LOBE LOBECT THORCOM 29063 ORTHODOXY IMAM MOH THRC 0 CARDIOTHO W/MEDSTNL RACIC & SURGI REGIONAL LMPHADEC ANES 02078 [place] SLAVA THORACOTO 0 [place] EDW MY & ANESTHESI THORACOSC A OPY W/1 LUNG VNTJ SPMTRY 37556 ORTHODOXY SAAVEDRA W/VC 0 PULMONARY CESAR EXPIRATOR & Y FAMILIA CRITICAL W/WO MXML VOL VNTJ ECG 05858 [facility] ROUTINE 0 ORTH SILVIA ECG CARDIOLOG W/LEAST Y CONSULT 12 LDS I&R ONLY RADIOLOGI 91806 [facility] C EXAM 0 RADIOLOGY CHEST 2 ASSOC VIEWS FRONTAL&L ATERAL INJECTION J0690 JULIET CHUNG 0 DON DON CEFAZOLIN SODIUM 500 MG IIV3 60000 JULIET CHUNG VACCINE 0 DON DON SPLIT VIRUS 0.5 ML DOSAGE IM USE ADMINISTR G0008 JULIET CHUNG ATION OF 0 DON DON INFLUENZA VIRUS VACCINE COMPUTER- 14298 [place] [facility] AIDED 0 [facility] DETECTION IMAGING ASS SCREENING MAMMOGRAP HY SCREENING G0202 [place] [facility] 0 MEDICAL [facility] MAMMOGRAP IMAGING HY CHRISTOPHER ASS INCL CAD WHEN PERFORMD FINE 05473 [facility] NEEDLE 0 RADIOLOGY ASPIRATIO ASSOC N WITH IMAGING GUIDANCE [facility] 84061 ORTHODOXY UMBERTO GAR INCL 0 CARDIOTHO FLUOR RACIC GDNCE DX SURGI W/CELL WASHG SPX CYTP 18262 [facility] PICKLESIM SLCTV 0 KRIS & ER JR LAVELL CELL DUBILIER ENHANCEME NT INTERP[place] XCP[place] C/[place] [address] [facility] PICKLESIM SURG 0 KRIS & ER JR LAVELL PATHOLOGY DUBILIER GROSS&BOY ROSCOPIC EXAM CYTP FINE 28512 [facility] JAVON NDL 0 KRIS & CESAR ASPIRATE DUBILIER IMMT CYTOHIST STD DX 1ST CYTP EVAL 02656 [facility] JAVON FINE 0 KRIS & CESAR NEEDLE DUBILIER ASPIRATE INTERP & REPORT RADIOLOGI 09820 [facility] MAR C 0 RADIOLOGY EXAMINATI [place] [address] [facility] MAR GUIDANCE 0 RADIOLOGY NEEDLE ASSOC PLACEMENT SCR G0123 PATHOLOGY PATHOLOGY CYTOPATH 0 & & CERV/VAG CYTOLOGY CYTOLOGY SCR LAB LAB CYTOTECH UND PHYS SUPV SPMTRY 29939 ORTHODOXY UMBERTO GAR W/VC 0 CARDIOTHO EXPIRATOR RACIC Y FAMILIA SURGI W/WO MXML VOL VNTJ BLOOD 11977 [facility] OCCULT 0 [facility] E ACTV QUAL FECES 1 [place] [address] [facility] INFUSION 0 [facility] THERAPY/P INC INC ROPHYLAXI S /DX 1ST TO [address] THORAX 06013 [place] [facility] W/O 0 MEDICAL [facility] CONTRAST IMAGING MATERIAL ASS MODERATE 79532 [place] [facility] SEDATJ 0 MEDICAL [facility] SAME IMAGING PHYS/QHP ASS EACH ADDL 15 MIN RADIOLOGI 17551 [facility] C EXAM 0 MEDICAL MEDICAL CHEST 2 IMAGING IMAGING VIEWS ASS ASS FRONTAL&L ATERAL FINE 35999 [place] [facility] NEEDLE 0 MEDICAL [facility] ASPIRATIO [place] [address] [facility] INFUSION 0 [facility] THERAPY INC INC PROPHYLAX IS/DX EA HOUR 3D 49567 TESSCHARLEEN [facility] RENDERING 0 [facility] INC INC W/INTERP& POSTPROC DIFF WORK STATION CYTP FINE 14195 PATHOLOGY PATHOLOGY NDL 0 & & ASPIRATE CYTOLOGY CYTOLOGY IMMT LAB LAB CYTOHIST STD DX 1ST CYTP EVAL 79984 PATHOLOGY PATHOLOGY FINE 0 & & NEEDLE CYTOLOGY CYTOLOGY ASPIRATE LAB LAB INTERP & [place] [address] [place] [facility] GUIDANCE 0 MEDICAL [facility] NEEDLE IMAGING PLACEMENT ASS MODERATE 54742 [place] [facility] SEDATJ 0 MEDICAL ARLETTE SAME IMAGING PHYS/QHP ASS 5/>YRS INIT 30 MIN THROMBOPL 54686 [facility] ASTIN 0 [facility] TIME INC INC PARTIAL PLASMA/WH OLE BLOOD COLLECTIO 17049 [facility] N VENOUS 0 [facility] [place] [facility] BLOOD [place] [address] [facility] UREA 0 [facility] NITROGEN INC INC QUANTITAT KEMI CREATININ 01346 [facility] E BLOOD 0 [facility] INC INC PROTHROMB 38937 [facility] IN TIME 0 [facility] INC INC BLOOD 01901 TESS TESS COUNT 0 [facility] COMPLETE INC INC AUTO&AUTO DIFRNTL WBC BLOOD 11872 [facility] COUNT 0 [facility] COMPLETE INC INC AUTO&AUTO DIFRNTL WBC BASIC 04486 [facility] METABOLIC 0 [facility] PANEL INC INC CALCIUM TOTAL 3D 41641 TESS HENDRICKSON RENDERING 0 [facility] INC INC W/INTERP& POSTPROC DIFF WORK STATION RADEX 52165 [place] [facility] RIBS UNI 0 MEDICAL ARLETTE W/POSTERO IMAGING ANT CH ASS MINIMUM [address] THORAX 35037 [place] [facility] 0 MEDICAL ARLETTE W/CONTRAS IMAGING T ASS MATERIAL INJECTION J1040 JULIET CHUNG 0 DON DON METHYLPRE DNISOLONE ACETATE 80 MG SCANNING 64192 [facility] OPHTHALMI 0 C IMAGING POSTERIOR SGM UNI OPHTH 16581 [facility] MEDICAL 0 XM&EVAL COMPRHNSV ESTAB PT 1/> RADEX 34336 [place] ANTONIO, FOOT 0 MEDICAL BE P COMPLETE IMAGING MINIMUM 3 [place] [address] PATT PLUMMER PHLX/PHLG 0 EMERGENCY III, OTH/THN SERVICES NINI GRT TOE W/O MANJ ASSOCIATE S INJECTION J1040 JULIET CHUNG, 0 DON R DON R METHYLPRE DNISOLONE ACETATE 80 MG INJECTION J1040 JULIET CHUNG, 0 DON R DON R METHYLPRE DNISOLONE ACETATE 80 MG ECG 92934 PATT PLUMMER ROUTINE 0 EMERGENCY III, ECG SERVICES NINI W/LEAST 12 LDS ASSOCIATE I&[place] [address] [facility] TROPONIN 0 [facility] QUANTITAT INC INC KEMI CREATINE 42372 [facility] KINASE 0 [facility] TOTAL INC INC ECG 58662 [facility] ROUTINE 0 [facility] ECG INC INC W/LEAST 12 LDS TRCG ONLY W/O I&R CREATINE 64531 [facility] KINASE MB 0 [facility] FRACTION INC INC ONLY INJECTION J3420 JULIET CHUNG VIT B-12 9 DON R DON R CYANOCOBA MAYANK TO 1000 MCG INJECTION J1040 JULIET CHUNG 9 DON R DON R METHYLPRE DNISOLONE ACETATE 80 MG INFLUENZA G9141 JULIET CHUNG A H1N1 9 DON R DON R IMMUNIZAT ION ADMINISTR ATION LIPID 54183 [facility] OF PANEL 9 [facility] INC GLUC BLD 47281 [facility]/CO TESS GLUC MNTR 9 [facility] DEV [facility] CLEARED BANK ACCT FDA SPEC HOME USE BLOOD 65253 DHS/CO TESS OCCULT 9 [facility] PEROXIDAS [facility] E ACTV BANK ACCT QUAL FECES 1 DETER SCR G0123 PATHOLOGY PATHOLOGY CYTOPATH 9 & & CERV/VAG CYTOLOGY CYTOLOGY SCR LAB LAB CYTOTECH UND PHYS SUPV IIV3 64805 JULIET CHUNG, VACCINE 9 DON R DON R SPLIT VIRUS 0.5 ML DOSAGE IM USE ADMINISTR G0008 JULIET CHUNG, ATION OF 9 DON R DON R INFLUENZA VIRUS VACCINE 3D 19941 XIOMY STAUFFER, RENDERING 9 MAURY MAURY W/INTERP & POSTPROCE SS SUPERVISI ON MRI 35591 XIOMY STAUFFER SPINAL 9 MAURY MAURY CANAL CERVICAL W/O CONTRAST MATRL RADEX 69606 JULIET CHUNG, SPINE 9 DON R DON R CERVICAL 4 OR 5 VIEWS COMPUTER- 24947 [facility] AIDED 9 [facility] DETECTION INC INC SCREENING MAMMOGRAP HY SCREENING 70927 [facility] 9 [facility] MAMMOGRAP INC INC HY BILATERAL ADMN SET A7005 YOUR YOUR W/SM VOL 9 PHARMACY PHARMACY NONFILTR [facility] NEBULIZR NON-DISPB L PHRM Q0513 YOUR YOUR DISPENSIN 9 PHARMACY PHARMACY G F[employer] INHALATIO N RX; PER 30 DAYS ALBUTEROL J7620 YOUR YOUR TO 2.5 9 PHARMACY PHARMACY [employer] [facility] IPRATROPI UM BROM TO 0.5 MG RADIOLOGI 42649 [facility] C EXAM 9 [facility] CHEST 2 INC INC VIEWS FRONTAL&L ATERAL INJECTION J1040 JULIET CHUNG, Star DON R DON R METHYLPRE DNISOLONE ACETATE 80 MG INJECTION J1040 JULIET CHUNG 9 DON R DON R METHYLPRE DNISOLONE ACETATE 80 MG OPHTH 63170 DAMON, DAMON, MEDICAL 9 TIM A TIM A XM&VALENTINA BAE NEW PT 1/> VST INJECTION J1040 JULIET CHUNG 9 DON R DON R METHYLPRE DNISOLONE ACETATE 80 MG INJECTION J3420 JULIET CHUNG, VIT B-12 9 DON R DON R CYANOCOBA MAYANK TO 1000 MCG INJECTION J1040 JULIET CHUNG 9 DON R DON R METHYLPRE DNISOLONE ACETATE 80 MG MAMMOGRAP 60557 [facility] HY 9 [facility] UNILATERA INC INC L INJECTION J1040 JULIET CHUNG 9 DON R DON R METHYLPRE DNISOLONE ACETATE 80 MG RADEX 92967 [facility] SPINE 8 [facility] LUMBOSACR INC INC AL MINIMUM 4 VIEWS INJECTION J1040 JULIET CHUNG, Maria DON R DON R METHYLPRE DNISOLONE ACETATE 80 MG IIV3 96693 JULIET CHUNG, VACCINE 8 DON R DON R SPLIT VIRUS 0.5 ML DOSAGE IM USE ADMINISTR G0009 JULIET CHUNG, ATION OF 8 DON R DON R PNEUMOCOC KAISER VACCINE ADMINISTR G0008 JULIET CHUNG, ATION OF 8 DON R DON R INFLUENZA VIRUS VACCINE PPSV23 98028 JULIET CHUNG, VACCINE 2 8 DON R DON R YRS OR OLDER FOR SUBQ/IM USE RADEX 52019 JULIET CHUNG, RIBS UNI 8 DON R DON R W/POSTERO ANT CH MINIMUM 3 VIEWS INJECTION J1040 JULIET CHUNG, Maria DON R DON R METHYLPRE DNISOLONE ACETATE 80 MG INJECTION J1040 JULIET CHUNG, Maria DON R DON R METHYLPRE DNISOLONE ACETATE 80 MG SCREENING 07626 [place] [facility], 8 MEDICAL MAURY MAMMOGRAP IMAGING HY ASSOCIATE BILATERAL S COMPUTER- 01463 [place] [facility], AIDED 8 MEDICAL MAURY DETECTION IMAGING ASSOCIATE SCREENING S MAMMOGRAP HY INJECTION J1040 JULIET CHUNG, Mraia DON R DON R METHYLPRE DNISOLONE ACETATE 80 MG BLOOD 41133 [facility]CO TESS OCCULT 8 [facility] E ACTV BANK ACCT QUAL FECES 1 DETER CYTP 63556 [facility]/CO TESS CERV/VAG [address] [place] [address] AUTO THIN [facility] LAYER BANK ACCT PREP MNL SCREEN LIPID 84449 [facility]/CO TESS PANEL [address] [place] [address] BANK ACCT GLUC BLD 76695 [facility] GLUC MNTR [address] [place] [address] DEV [facility] CLEARED BANK ACCT FDA SPEC [facility] 650[address] [facility], DISCHARGE 8 [facility] DAY CARDIOLOG MANAGEMEN Y ASSOC T 30 MIN/< MYOCRD 35180 [facility], PRFUJ STD 8 [facility] ADRIANNE Bland EJEC FXJ CARDIOLOG Y ASSOC MYOCRD 96307 [facility], PRFUJ STD 8 [facility] ADRIANNE Bland WALL CARDIOLOG MOTION Y ASSOC QUAL/MARLEE STD CV STRS 29291 [facility], TST 8 [facility] ADRIANNE Bland XERS&/OR CARDIOLOG RX CONT Y ASSOC ECG I&R ONLY MYOCRD 34846 [facility], PRFUJ IMG 8 [facility] ADRIANNE Bland TOMOG CARDIOLOG SPECT VIDEO GAMES MECHANIC Y ASSOC STD CV STRS 04575 JOSH ESCALANTE, TST 8 [facility] [place] XERS&/OR CARDIOLOG RX CONT Y ASSOC ECG W/O I&R INITIAL 74328 JOSH ESCALANTE, HOSPITAL 8 [facility] [place] CARE/DAY CARDIOLOG 50 Y ASSOC MINUTES DOPPLER 06455 JOSH ESCALANTE, ECHOCARD 8 [facility] PULSE CARDIOLOG WAVE Y ASSOC W/SPECTRA L DISPLAY ECHO 03685 JOSH ESCALANTE, TRANSTHOR 8 [facility] AC R-T 2D CARDIOLOG W/WO Y ASSOC M-MODE REC COMP DOP 98813 JOSH ESCALANTE, ECHOCARD 8 [facility] COLOR CARDIOLOG FLOW Y ASSOC VELOCITY MAPPING GROUND A0425 [facility] PER SERVICE SERVICE STATUTE MILE BASIC 03102 [facility] METABOLIC 8 [facility]OSP PANEL INC INC CALCIUM TOTAL THROMBOPL 14581 [facility] ASTIN 8 [facility]OS[facility] TIME INC INC PARTIAL PLASMA/WH OLE BLOOD RADIOLOGI 74503 [facility] C 8 [facility]OSP EXAMINATI INC INC [place] [address] [facility] TROPONIN 8 [facility]OSP QUANTITAT INC INC KEMI BLOOD 32954 [facility] COUNT 8 [facility]OS[facility] COMPLETE INC INC AUTO&AUTO DIFRNTL WBC AMB A0427 [facility] SERVICE 8 AMBULANCE AMBULANCE ALS SERVICE SERVICE EMERGENCY TRANSPORT LEVEL 1 COLLECTIO 66843 [facility] N VENOUS 8 [facility]OSP BLOOD INC INC VENIPUNCT URE CREATINE 76329 [facility] KINASE MB 8 [facility]OSP FRACTION INC INC ONLY THER 15098 [facility] PROPH/DX 8 [facility]OSP NJX EA INC INC SEQL IV PUSH SBST/DRUG ECG 73963 JOSH ESCALANTE, ROUTINE 8 [facility] ECG CARDIOLOG W/LEAST Y ASSOC 12 LDS I&R ONLY CREATINE 96607 TESS TESS KINASE 8 [facility] TOTAL INC INC PROTHROMB 38331 [facility] IN TIME 8 [facility] INC INC THER 45112 T[facility] PROPH/DX 8 [facility] NJX IV INC INC PUSH 1ST SBST/DRUG ECG 49735 TESS TESS ROUTINE 8 [facility] ECG INC INC W/LEAST 12 LDS TRCG ONLY W/O I&R ECG 81291 TESS TESS ROUTINE 8 [facility] ECG INC INC W/LEAST 12 LDS TRCG ONLY W/O I&R RADIOLOGI 39415 TESS TESS C EXAM 8 [facility] [place] [facility] CHEST 2 INC INC VIEWS FRONTAL&L ATERAL ECG 75908 TESS LÓPEZ, ROUTINE 8 [facility] W/LEAST PROF SERV 12 LDS I&R ONLY INJECTION J1040 JULIET CHUNG, Maria ARRIETA R DON R METHYLPRE DNISOLONE ACETATE 80 MG PHRM Q0513 YOUR YOUR DISPENSIN 8 PHARMACY PHARMACY G FEE [employer] INHALATIO N RX; PER 30 DAYS ADMN SET A7003 YOUR YOUR SM VOL 8 PHARMACY PHARMACY NONFILTR [employer] PNEUMAT NEBULIZR DISPBL ALBUTEROL J7620 YOUR YOUR TO 2.5 8 PHARMACY PHARMACY MG & [employer] IPRATROPI UM BROM TO 0.5 MG INJECTION J1040 JULIET CHUNG, Maria ARRIETA R DON R METHYLPRE DNISOLONE ACETATE 80 MG INJECTION J1040 JULIET CHUNG 8 DON R DON R METHYLPRE DNISOLONE ACETATE 80 MG NEBULIZER E0570 [facility] WITH 8 HOME MED HOME MED [employer] NEBULIZER E0570 [facility] WITH 8 HOME MED HOME MED [employer] Encounters Encounter Start End Date Code Location Performer Type Date OFFICE 73114 MOISES ROBIN OUTPATIEN 7 7 T VISIT ORTHOPAED 15 ICS PSC MINUTES OFFICE 30071 [facility] MAURICE OUTPATIEN 7 7 PHYSICIAN T VISIT 5 S GROUP MINUTES OFFICE 85000 [facility] MAURICE OUTPATIEN 7 7 PHYSICIAN T VISIT S GROUP 10 MINUTES HOSPITAL TESS - 7 7 [facility] [place] [facility] INPATIENT [facility] EMERGENCY 07884 RIKY ROJAS 7 7 PHYSICIAN JR [facility], [facility] T VISIT HIGH/URGE NT SEVERITY HOSPITAL TESS - 7 7 [facility] [place] [facility] OUTPATIEN [facility] HOSPITAL TESS - 7 7 [facility] [place] [facility] INPATIENT [facility] EMERGENCY 30004 RIKY PASCUAL DEPT 7 7 PHYSICIAN VISIT S, [facility] HIGH SEVERITY& THREAT [facility] 13791 [facility] 7 7 HEALTH T VISIT MEDICAL 15 GROUP MINUTES HOSPITAL TESS - 7 7 [facility] EMERGENC[facility] 67157 TESS 7 7 [facility] T VISIT LOW/MODER SEVERITY EMERGENCY 01892 RIKY TAPIA DEPT 7 7 PHYSICIAN VISIT S, [facility] HIGH SEVERITY& THREAT [facility] HOSPITAL TESS - 6 6 [facility] [place] [facility] OUTPATIEN [facility] H[facility] TESS - 6 6 [facility] OUTPATIEN [facility] OFFICE 65929 [facility] MELANIE OUTPATIEN 6 6 PHYSICIAN MAT T VISIT S GROUP 25 MINUTES HOSPITAL TESS - 6 6 [facility] [place] [facility] OUTPATIEN [facility] HOSPITAL TESS - 6 6 [facility] [place] [facility] OUTPATIEN [facility] EMERGENCY 87925 TESS 6 6 [facility] T VISIT MODERATE SEVERITY EMERGENCY 07027 RIKY SHEEHAN 6 6 PHYSICIAN U [place] [facility], [facility] T VISIT HIGH/URGE NT SEVERITY OFFICE 11890 JULIET CHUNG OUTPATIEN 1 1 DON DON T VISIT 15 MINUTES OFFICE 70828 JULIET CHUNG OUTPATIEN 1 1 DON DON T VISIT 15 MINUTES OFFICE 54452 JULIET CHUNG OUTPATIEN 1 1 DON DON T VISIT 15 MINUTES OFFICE 82143 JULIET CHUNG OUTPATIEN 0 0 DON DON T VISIT 15 MINUTES HOSPITAL TESS - 0 0 [facility] OUTPATIEN INC T EMERGENCY 12784 TESS 0 0 [facility] DEPARTMEN INC T VISIT HIGH/URGE NT SEVERITY EMERGENCY 05274 PATT DIAZEY DEPT 0 0 EMERGENCY BOY VISIT SERVICES HIGH SEVERITY& THREAT FUNJ OFFICE 88098 JULIET CHUNG OUTPATIEN 0 0 DON DON T VISIT 15 MINUTES OFFICE 49419 JULIET CHUNG OUTPATIEN 0 0 DON DON T VISIT 15 MINUTES OFFICE 90077 ORTHODOXY IMAM COLE OUTPATIEN 0 0 CARDIOTHO T VISIT RACIC 10 [facility] TESS - 0 0 [facility] OUTPATIEN INC T OFFICE 34031 ORTHODOXY UMBERTO GAR OUTPATIEN 0 0 CARDIOTHO T VISIT RACIC 10 SURGI MINUTES PERIODIC 51912 [facility] PREVENTIV 0 0 [facility] CENTER PATIENT 66YRS& OLDER OFFICE 52833 ORTHODOXY UMBERTO GAR OUTPATIEN 0 0 CARDIOTHO T NEW 60 RACIC MINUTES SURG HOSPITAL TESS - 0 0 [facility] OUTPATIEN INC T [facility] TESS - 0 0 [facility] OUTPATIEN INC T OFFICE 83610 JULIET CHUNG OUTPATIEN 0 0 DON DON T VISIT 15 MINUTES EMERGENCY 00363 PATT FRANCIS BAB DEPT 0 0 EMERGENCY VISIT SERVICES HIGH SEVERITY& THREAT [facility] TESS - 0 0 [facility] OUTPATIEN INC T EMERGENCY 61673 TESS 0 0 [facility] DEPARTMEN INC T VISIT MODERATE SEVERITY OFFICE 72818 JULIET CHUNG OUTPATIEN 0 0 DON DON T VISIT 15 MINUTES OFFICE 50888 CHUNG, CHUNG, OUTPATIEN 0 0 DON R DON R T VISIT 15 MINUTES OFFICE 00723 CHUNG CHUNG, OUTPATIEN 0 0 DON R DON R T VISIT 15 MINUTES EMERGENCY 99314 PATT PLUMMER 0 0 EMERGENCY III, DEPARTMEN SERVICES NINI T VISIT MODERATE ASSOCIATE SEVERITY [facility] TESS - 0 0 [facility] OUTPATIEN INC T EMERGENCY 14297 TESS 0 0 [facility] DEPARTMEN INC T VISIT LOW/MODER SEVERITY OFFICE 74128 JULIET CHUNG, OUTPATIEN 0 0 DON R DON R T VISIT 15 MINUTES OFFICE 43784 CHUNG, CHUNG, OUTPATIEN 0 0 DON R DON R T VISIT 15 MINUTES EMERGENCY 27418 PATT PLUMMER 0 0 EMERGENCY III, DEPARTMEN SERVICES NINI T VISIT HIGH/URGE ASSOCIATE NT [facility] TESS - 0 0 [facility] OUTPATIEN INC T EMERGENCY 41579 TESS 0 0 [facility] DEPARTMEN INC T VISIT LOW/MODER SEVERITY OFFICE 73321 JULIET CHUNG, OUTPATIEN 9 9 DON R DON R T VISIT 15 MINUTES OFFICE 52667 [facility]/CO TESS OUTPATIEN 9 9 HEALTH CO HEALTH T VISIT [facility] 15 BANK ACCT MINUTES PERIODIC 32004 DHS/CO TESS PREVENTIV 9 9 [facility] PATIENT BANK ACCT 66YRS& OLDER OFFICE 50622 JULIET CHUNG OUTPATIEN 9 9 DON R DON R T VISIT 15 MINUTES HOSPITAL TESS - 9 9 [facility] OUTPATIEN INC T HOSPITAL TESS - 9 9 [facility] OUTPATIEN INC T EMERGENCY 44926 PATT AQUINO, 9 9 EMERGENCY ANTONI R DEPARTMEN SERVICES T VISIT HIGH/URGE ASSOCIATE NT S SEVERITY EMERGENCY 75005 TESS 9 9 [facility] DEPARTMEN INC T VISIT LOW/MODER SEVERITY OFFICE 18679 JULIET CHUNG OUTPATIEN 9 9 DON R DON R T VISIT 15 MINUTES OFFICE 85941 JULIET CHUNG OUTPATIEN 9 9 DON R DON R T VISIT 15 MINUTES OFFICE 28944 JULIET CHUNG OUTPATIEN 9 9 DON R DON R T VISIT 15 MINUTES OFFICE 69663 JULIET CHUNG OUTPATIEN 9 9 DON R DON R T VISIT 15 MINUTES HOSPITAL TESS - 9 9 [facility] OUTPATIEN INC T OFFICE 98489 JULIET CHUNG OUTPATIEN 9 9 DON R DON R T VISIT 15 MINUTES OFFICE 74826 JULIET CHUNG OUTPATIEN 8 8 DON R DON R T VISIT 15 MINUTES OFFICE 82250 JULIET CHUNG OUTPATIEN 8 8 DON R DON R T VISIT 15 MINUTES EMERGENCY 96627 TESS 8 8 [facility] DEPARTMEN INC T VISIT LOW/MODER SEVERITY HOSPITAL TESS - 8 8 [facility] OUTPATIEN INC T OFFICE 11067 JULIET CHUNG OUTPATIEN 8 8 DON R DON R T VISIT 15 MINUTES OFFICE 10271 JULIET CHUNG OUTPATIEN 8 8 DON R DON R T VISIT 15 MINUTES OFFICE 32250 JULIET CHUNG OUTPATIEN 8 8 DON R DON R T VISIT 15 MINUTES HOSPITAL TESS - 8 8 [facility] OUTPATIEN INC T OFFICE 01536 JULIET CHUNG OUTPATIEN 8 8 DON R DON R T VISIT 15 MINUTES [facility] 46605 DHS/CO TESS PREVENTIV 8 8 [facility] PATIENT BANK ACCT 66YRS& OLDER EMERGENCY 77951 TESS DEPT 8 8 [facility] VISIT INC HIGH SEVERITY& THREAT FUNCJ EMERGENCY [id number] GENEVIEVE FRANCIS, 8 8 [facility] VIS[facility] ON HIGH/URGE NT SEVERITY HOSPITAL TESS - 8 8 [facility] [place] [place] [facility] OUTPATIEN INC HOSPITAL TESS - 8 8 [facility] [place] [place] [facility] OUTPATIEN INC T OFFICE [id number] Johan WOODWARD 8 8 CARE G T VISIT ASSOCIATE 15 S MINUTES OFFICE [id number] Johan WOODWARDEN 8 8 CARE G T VISIT ASSOCIATE 15 S MINUTES OFFICE [id number] JULIET CHUNG OUTPATIEN 8 8 DON R DON R T VISIT 15 MINUTES OFFICE 23194 JULIET CHUNG OUTPATIEN 8 8 DON R DON R T VISIT 15 MINUTES OFFICE [id number] JULIET CHUNG OUTPATIEN 8 8 DON R DON R T VISIT 15 MINUTES OFFICE [id number] JULIET CHUNG OUTPATIEN 8 8 DON R DON R T VISIT 15 MINUTES
--- OUTSIDE RECORDS SUMMARY | 2017-01-18 10:22 | External Medical Summary Rpt ---
Author Author , Organization [employer] Address Unknown Phone Unavailable Care Team Providers Care Phlebotomist Prn Name Role Phone SLAVA EDW, Unavailable Unavailable SLAVA EDW GNOSTICISM Unavailable Unavailable CARDIOTHORACIC SURGI, GNOSTICISM CARDIOTHORACIC SURGI [facility] Unavailable Unavailable MEDICAL GROUP, [facility] GNOSTICISM PULMONARY & Unavailable Unavailable CRITICAL, [facility] PULMON[facility] & CRITICAL BENSEMA MAR, BENSEMA Unavailable Unavailable MAR BESKATRINA BESSON Unavailable Unavailable PANKAJ CHILDS A, Unavailable Unavailable PANKAJ CHILDS A [facility] Unavailable [facility]available [facility], [facility] BARRERA, BARRERA Unavailable Unavailable BARRERA ALL, BARRERA ALL Unavailable Unavailable BREEDING SEAN, Unavailable Unavailable BREEDING SEAN [facility] Unavailable Unavailable SERVICE, [facility] C PAULO SAMAYOA MD Unavailable Unavailable PSC, C PAULO SAMAYOA MD PSC ADRIANNE ESCALANTE, Unavailable Unavailable ADRIANNE ESCALANTE [facility] [place] Unavailable Un[place] [facility], [facility] [place] [facility] Unavailable Unavailable [facility], [facility] CLIF MENEZES Unavailable Unavailable CHIPPS KR[facility] & Unavailable Unavailable DUBILIER, [facility] OF Unavailable Unavailable [facility], [facility] Johan ARANDA COOPER, Unavailable Unavailable Johan FRANCOXIOMY, XIOMY Unavailable Unavailable XIOMY ARLETTE, Unavailable Unavailable XIOMY ARLETTE XIOMY, MAURY, Unavailable Unavailable XIOMY, MAURY UMBERTO GAR, UMBERTO GAR Unavailable Unavailable [facility] Un[facility] [place], [facility] [place] [facility] Un[facility] [place] [facility] BARRERA MAR, BARRERA MAR Unavailable Unavailable JR ROJAS FULLER, Unavailable Unavailable ANKUR DANIELSON Unavailable Unavailable ANKUR NIEVES Unavailable Unavailable BOY ANTONI AQUINO, Unavailable Unavailable ANTONI AQUINO [facility] Unavailable Unavailable [place] Unavailable Unavailable [place], [facility] Unavailable Unavailable INC, [facility] Unavailable Unavailable HOSPITAL P, [facility] DELMIS LÓPEZ HARVEY, Unavailable Unavailable DELMIS DAMON JAVIER, DAMON JAVIER Unavailable Unavailable DAMON JAVIER, DAMON JAVIER Unavailable Unavailable NELSON, TIM A, Unavailable Unavailable NELSON, TIM A [facility], Unavailable Unavailable [facility] NANI SILVIA, Unavailable Unavailable NANI SILVIA ROBIN, ROBIN Unavailable Unavailable IMAM MOH, IMAM MOH Unavailable Unavailable JAVON CESAR, JAVON Unavailable Unavailable CESAR TERRELL ELYSSA, TERRELL Unavailable Unavailable ELYSSA [facility] Un[facility], [facility], Unavailable Unavailable [facility] FRANKI, SHAWN E, Unavailable Unavailable FRANKI, SHAWN E [facility] Unavailable Unavailable SERVICES, [facility] BE ALVAREZ, Unavailable Unavailable BE [...] [facility] Unavailable Unavailable [facility], [facility] Unavailable Unavailable [facility], [facility] Unavailable Unavailable EQUIP[facility], [facility] SOTINGEANU PEYTON, Unavailable Unavailable SOTINGEANU PEYTON CHUNG DON, Unavailable Unavailable CHUNG BERNY CHUNG DON, Unavailable Unavailable CHUNG BERNY VENTURA R, Unavailable Unavailable BERNY CHUNG, Unavailable Unavailable NINI SWANSON III, Unavailable Unavailable NINI PLUMMER III [facility], Unavailable Unavailable [facility], Unavailable Unavailable [facility] Purpose Continuity of Care Document - 08-18-2007 through 2016 Problems Code Diagnosis DOS Provider Status 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 D62 ACUTE 11-10-2016 [facility] POSTHEMORRH PHYSICIANS AGIC ANEMIA GROUP I4891 UNSPECIFIED 11-10-2016 [facility] ATRIAL PHYSICIANS FIBRILLATIO GROUP N K921 MELENA 11-10-2016 [facility] PHYSICIANS GROUP Z1211 ENCOUNTER 11-10-2016 [facility] SCREENING PHYSICIANS MALIGNANT GROUP NEOPLASM OF COLON K2990 GASTRODUODE 10-28-2016 [facility] NITIS PHYSICIANS UNSPECIFIED GROUP WITHOUT BLEEDING R911 SOLITARY 10-27-2016 [facility] P[facility] NODULE MEDICAL EQUIPME K922 GASTROINTES 10-21-2016 [facility] ASS UNSPECIFIED I480 PAROXYSMAL 10-20-2016 [facility] P N Z7901 HALF-WAY 10-20-2016 [facility] CURRENT USE [facility] P ANTICOAGULA NTS 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, ANEMIA SEC PLLC TO BLOOD LOSS CHRONIC 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 K2980 DUODENITIS 10-17-2016 [facility] WITHOUT [facility] BLEEDING INC K449 DIAPHRAGMAT 10-17-2016 [facility] IC HERNIA [facility] W/O INC OBSTRUCTION OR GANGRENE K5730 DIVERTICULO 10-17-2016 [facility] SIS LG MEDICAL INTEST W/O IMAGING ASS PERF/ABSC W/O BLEED R109 UNSPECIFIED 10-17-2016 [facility] ABDOMINAL [facility]ICAL PAIN IMAGING ASS R0602 SHORTNESS 09-02-2016 [facility] OF BREATH [facility] INC R079 CHEST PAIN 09-02-2016 [facility] UNSPECIFIED [facility] INC E785 HYPERLIPIDE 08-24-2016 [facility] MORENA PHYSICIANS UNSPECIFIED GROUP I10 ESSENTIAL 08-24-2016 [facility] PRIMARY PHYSICIANS HYPERTENSIO GROUP N J449 CHRONIC 08-24-2016 [facility] OBSTRUCTIVE PHYSICIANS PULMONARY GROUP DISEASE UNS C3411 MALIGNANT 08-22-2016 [facility] NEOPLASM [facility] UPPER LOBE INC RT BRONCHUS/DELFINA NG R072 PRECORDIAL 08-22-2016 [facility] PAIN PHYSICIANS, PLLC C25407 PERSONAL HX 08-22-2016 [facility] MEDICAL NEOPLASM IMAGING ASS BRONCHUS & LUNG X10007 PERSONAL 08-22-2016 [facility] HISTORY OF [facility] NICOTINE INC DEPENDENCE Z720 TOBACCO USE 08-14-2016 [facility] Z902 ACQUIRED 08-14-2016 [facility] LUNG MEDICAL GROUP J209 ACUTE 08-11-2016 [facility] BRONCHITIS PHYSICIANS, UNSPECIFIED PLLC J440 COPD WITH 08-11-2016 [facility] ACUTE LOWER [facility] INC RESPIRATORY INFECTION K219 GASTRO-ESOP 08-11-2016 [facility] P WITHOUT ESOPHAGITIS R05 COUGH 08-11-2016 [facility] I119 HYPERTENSIV 07-14-2016 [facility] E HEART PHYSICIANS DISEASE GROUP WITHOUT HEART FAILURE J439 EMPHYSEMA 07-09-2016 [facility] UNSPECIFIED MEDICAL IMAGING ASS D649 ANEMIA 06-07-2016 [facility] UNSPECIFIED PHYSICIANS, [facility] E876 HYPOKALEMIA 06-07-2016 [facility]IC[facility]ANS, [facility] N19 UNSPECIFIED 06-07-2016 [facility] KIDNEY [facility] FAILURE INC N3001 ACUTE 06-07-2016 [facility] CYSTITIS PHYSICIANS, WITH [facility] HEMATURIA R319 HEMATURIA 06-07-2016 [facility] UNSPECIFIED PHYSICIANS, PLLC 4659 ACUTE URIS 11-08-2010 [facility] OF DON UNSPECIFIED SITE 4660 ACUTE 11-08-2010 [facility] BRONCHITIS DON 496 CHRONIC 11-03-2010 [facility]CTION [facility] NEC 81360 OTHER 09-30-2010 [facility] SPECIFIED DON DISORDERS OF URINARY TRACT 01126 CHRONIC 09-30-2010 [facility] FATIGUE DON SYNDROME 35556 ASTHMA, 08-26-2010 [facility] UNSPECIFIED [facility] MED , EQUIP. L UNSPECIFIED STATUS 462 ACUTE 08-23-2010 [facility] PHARYNGITIS DON 7862 COUGH 08-23-2010 [facility] DON V5831 ENCOUNTER 07-23-2010 [facility] CHANGE/CORAZON DON OMAR SURGICAL WOUND DRESSING 4019 UNSPECIFIED 07-17-2010 Vitor ELLIS MD PSC N 03377 CALCU 07-17-2010 PATHOLOGY & GALLBLADD CYTOLOGY W/OTH LAB CHOLECYST W/O MENTION OBST 43297 CHOLECYSTIT 07-17-2010 COMMUNITY IS, ANESTH OF UNSPECIFIED THE BLUE 1629 MALIGNANT 07-16-2010 [facility] NEOPLASM [facility] BRONCHUS&DELFINA INC NG UNSPEC SITE 78088 CALCU 07-16-2010 [facility] W/ACUT INC CHOLCYST W/O MENTION OBST 44268 CALCU 07-16-[address] [facility] [address] [facility]O MENTION IMAGING ASS CHOLECYST/O BST 5758 OTHER 07-16-2010 [facility] SPECIFIED EMERGENCY DISORDER OF SERVICES GALLBLADDER V5869 LONG-TERM 07-16-2010 [facility] (CURRENT) [facility] USE OF INC OTHER MEDICATIONS V0382 NEED PROPH 06-23-2010 [facility] VACCINATION DON AGAINST STREP PNEUMONE 1623 MALIGNANT 06-10-2010 [facility] NEOPLASM KRIS & UPPER LOBE DUBILIER BRONCHUS OR LUNG 7866 SWELLING, 06-10-2010 GNOSTICISM MASS, OR CARDIOTHORA LUMP IN CIC SURGI CHEST 7869 OTH 06-10-2010 [facility] [place] SYMPTOMS ANESTHESIA INVOLVING RESPIRATORY SYSTEM&CHES T [address] OTHER 06-09-2010 [facility] DISEASES OF RADIOLOGY LUNG NOT ASSOC ELSEWHERE CLASSIFIED 5601 PARALYTIC 06-09-2010 [facility] ILEUS RADIOLOGY ASSOC 28023 SHORTNESS 06-09-2010 GNOSTICISM OF BREATH PULMONARY & CRITICAL 92204 ABNORMAL 06-09-2010 [facility] ARTERIAL RADIOLOGY BLOOD GASES ASSOC V5882 ENCOUNTER 06-09-2010 [facility] FITTING&ADJ RADIOLOGY ASSOC NON-VASCULA R CATHETER NEC V0481 NEED 05-06-2010 [facility] PROPHYLACTI DON C VACCINATION &INOCULATIO N FLU V7612 OTHER 04-25-2010 [facility] SCREENING MEDICAL MAMMOGRAM IMAGING ASS 6228 OTHER 04-11-2010 PATHOLOGY & SPECIFIED CYTOLOGY NONINFLAMMA LAB TORY DISORDER CERVIX V1582 PERS HX 04-11-2010 [facility] UT TOBACCO [facility]ALTH V1589 OTH SPEC 04-11-2010 PATHOLOGY & PERS HX CYTOLOGY PRESENTING LAB HAZARDS HEALTH OTH V700 ROUTINE 04-11-2010 [facility] EXAM@HEALTH CARE FACL V7231 ROUTINE 04-11-2010 [facility] EXAMINATION V7643 SCREENING 04-11-2010 [facility] NEOPLAS[facility] OF THE SKIN 2357 NEOPLASM 03-26-2010 [facility] BEHAVIOR INC TRACH BRONCHUS&DELFINA NG 2875 UNSPECIFIED 03-25-2010 [facility] THROMBOCYTO INC PENIA 490 BRONCHITIS 03-19-2010 [facility] NOT EMERGENCY SPECIFIED SERVICES ACUTE OR CHRONIC 7336 TIETZES 03-19-2010 [facility] DISEASE EMERGENCY SERVICES 9221 CONTUSION 03-19-2010 [facility] MED[facility] WALL IMAGING ASS 4618 OTHER ACUTE 03-17-2010 [facility] SINUSITIS DON 46866 SPRAIN AND 01-01-2010 [facility], STRAIN OF DON R UNSPECIFIED SITE OF FOOT 35592 BORDERLINE 12-23-2009 DAMON JAVIER GLAUC OPEN ANGLE BL FINDINGS LOW RSK 42163 NUCLEAR 12-23-2009 DAMON JAVIER SCLEROSIS 88021 UNSPECIFIED 12-23-2009 [facility], SITE OF DON R ANKLE SPRAIN AND STRAIN 87885 PAIN IN 12-21-2009 [facility] JOINT, MEDICAL ANKLE AND IMAGING FOOT ASSOCIATES 8260 CLOSED 12-21-2009 [facility] FRACTURE OF EMERGENCY ONE OR SERVICES MORE ASSOCIATES PHALANGES OF FOOT E8859 FALL FROM 12-21-2009 [facility] OTHER EMERGENCY SLIPPING SERVICES TRIPPING OR ASSOCIATES STUMBLING 4610 ACUTE 11-01-2009 [facility], MAXILLARY DON R SINUSITIS 48543 SPASM OF 09-10-2009 CH[facility], MUSCLE [place] R 35146 CHEST PAIN 09-07-2009 [place] [facility] UNSPECIFIED [facility] PROF SERV 8408 SPRAIN&STRA 09-07-2009 [place] IN OTH SPEC [facility] SHOULDER&UP PROF SERV PER ARM 8409 SPRAIN&STRA 09-07-2009 [facility] IN UNSPEC EMERGENCY SITE SERVICES SHOULDER&UP ASSOCIATES PER ARM 2729 UNSPECIFIED 05-21-2009 [facility] DISORDER HEALTH OF LIPOID [facility]AL METABOLISM BANK ACCT V771 SCREENING 05-21-2009 [facility] FOR HEALTH DIABETES [facility]TRAL MELLITUS BANK ACCT V762 SCREENING 04-23-2009 PATHOLOGY & FOR CYTOLOGY MALIGNANT LAB NEOPLASM OF THE CERVIX 7231 CERVICALGIA 04-11-2009 [facility] STAUFFER 43927 PAIN IN 04-10-2009 [facility], JOINT, DON R SHOULDER REGION 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[facility], 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 15817 PNEUMONIA 03-04-2009 [facility], DUE TO DON R OTHER SPECIFIED BACTERIA 00610 OTHER CHEST 02-23-2009 [facility] PAIN EMERGENCY SERVICES ASSOC[facility]ATES 39501 OSTEOARTHRO 01-11-2009 [facility], S UNSPEC DON R GEN/LOC OT SPEC SITES 21232 DEGEN 01-11-2009 [facility], 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 2720 PURE 11-09-2008 [facility], HYPERCHOLES DON R TEROLEMIA 05295 LUMP OR 09-28-2008 [facility] MASS IN [facility] BREAST INC 97062 UNSPECIFIED 09-28-2008 [facility] ABNORMAL MEDICAL MAMMOGRAM IMAGING ASSOCIATES 7242 LUMBAGO 07-20-2008 BERNY CHUNG 69244 DISORDER OF 07-20-2008 J[facility] BONE AND BERNY Leon CARTILAGE UNSPECIFIED 8472 LUMBAR 07-06-2008 JULIET SPRAIN AND BERNY Leon STRAIN 96131 UNSPECIFIED 06-20-2008 BERNY CHUNG CONJUNCTIVI TIS 4779 ALLERGIC 04-07-2008 J[facility]IET RHINITIS BERNY Leon CAUSE UNSPECIFIED 48625 DIAB W/OTH 03-06-2008 [facility] COMA TYPE HEALTH II/UNS NOT [facility]AL STATED BANK ACCT UNCNTRL 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 74 EP ti ET 31 7- 7- 00 SI 47 HE ve SIDDIQUI 58 20 20 0 DE NS ZI 85 10 10 NE 8 PH DO AR N VC MA R -C CY OD EI OF NE CY SY NT RU HI P AN A WI 00 03 03 00 12 6 EA [...] Procedure DOS Code Location Performer Comment ARTHROCEN 29561 MOISES ROBIN TESIS 7 ASPIR&/IN ORTHOPAED J MAJOR ICS PSC JT/BURSA W/O US RADIOLOGI 97891 MOISES ROBIN C EXAM 7 KNEE ORTHOPAED [...] EQUIPME [place] [address] [facility] TRACT UPR 7 MEDICAL W/SM INT IMAGING W/MULT ASS SERIAL IMAGES ECG 86712 [facility] ROUTINE 7 [facility] W/LEAST P 12 LDS I&R ONLY EXCISION [id number] [facility] STOMACH 7 [facility] VIA INC INC NATURAL/A RT OPENING ENDO DX EXCISION [id number] [facility] STOMACH 7 [facility] PYLORUS INC INC JEANA/ART OPENING ENDO DX EXCISION [id number] [facility] EG JUNCT 7 [facility] VIA JEANA INC INC ART OPENING ENDO DX EXCISION [id number] [facility] DUODENUM 7 [facility] VIA INC INC JEANA/[place] [address] [facility] ABDOMEN & 7 MEDICAL PELVIS IMAGING W/O ASS CONTRAST MATERIAL PRTBLE E0431 [facility] GASEOUS 7 HOME HOME O2 SYS MEDICAL MEDICAL RENT; EQUIPME EQUIPME FLWMTR HUMIDFR&M ASK O2 CONC 1 E1390 [facility] [place] 7 HOME HOME 85%/>02 MEDICAL MEDICAL CONC AT EQUIPME EQUIPME [facility] FLW RATE TECHNETIU A9502 [facility] [place] TC-99M 7 [facility] TETROFOSM INC INC IN DX PER STUDY DOSE MYOCARDIA 68181 [facility] [place]illo SPECT 7 [facility] MULTIPLE INC INC STUDIES CV STRS 99467 [facility] TST 7 [facility] XERS&/OR INC INC RX CONT ECG TRCG ONLY INJECTION J2785 [facility] 7 [facility] REGADENOS INC INC ON 0.1 MG O2 CONC 1 E1390 [facility] [place] 7 HOME HOME 85%/>02 MEDICAL MEDICAL CONC AT EQUIPME EQUIPME PRS FLW RATE PRTBLE E0431 [facility] [place] GASEOUS 7 HOME HOME O2 SYS MEDICAL MEDICAL RENT; EQUIPME EQUIPME FLWMTR HUMIDFR&M ASK INITIAL 27410 [facility] 7 PHYSICIAN CARE/DAY S GROUP 70 MINUTES ECG 56397 [facility] CHILDS ROUTINE 7 [facility] W/LEAST P 12 LDS I&R ONLY ECG 85479 [facility] ROUTINE 7 PHYSICIAN ECG S, PLLC W/LEAST 12 LDS I&R ONLY RADIOLOGI 44491 [facility] C EXAM 7 MEDICAL CHEST 2 IMAGING VIEWS ASS FRONTAL&L ATERAL COMPREHEN 29052 [facility] SIVE 7 [facility] METABOLIC INC INC PANEL RADIOLOGI 71623 [facility] C EXAM 7 PHYSICIAN CHEST 2 S, PLLC VIEWS FRONTAL&L ATERAL ECG 88341 [facility] ROUTINE 7 PHYSICIAN ECG S, PLLC W/LEAST 12 LDS I&R ONLY ECG 98507 [facility] ROUTINE 7 [facility] ECG INC INC W/LEAST 12 LDS TRCG ONLY W/O I&[place] [address] [facility] TROPONIN 7 [facility] QUANTITAT INC INC KEMI BLOOD 52060 [facility] COUNT 7 [facility] COMPLETE INC INC AUTO&AUTO DIFRNTL WBC PRTBLE E0431 [facility] LONG GASEOUS 6 HOME HOME O2 SYS MEDICAL MEDICAL RENT; EQUIPME EQUIPME FLWMTR HUMIDFR&M ASK O2 CONC 1 E1390 [facility] [place] 6 HOME HOME 85%/>02 MEDICAL MEDICAL CONC AT EQUIP[place] [address] [facility] THYROXINE 6 [facility] TOTAL INC INC COLLECTIO 06783 [facility] N VENOUS 6 [facility] [place] [address] [facility] THYROID 6 [facility] STIMULATI INC INC NG HORMONE TSH HEPATIC 51979 [facility] FUNCTION 6 [facility] PANEL INC INC THYROID 87676 [facility] HORM 6 [facility] UPTK/THYR INC INC OID HORMONE BINDING RATIO ECG 73692 [facility] MELANIE ROUTINE 6 PHYSICIAN MAT ECG S GROUP W/LEAST 12 LDS I&R ONLY ECG 29959 [facility] ROUTINE 6 [facility] ECG INC INC W/LEAST 12 LDS TRCG ONLY W/O I&R CREATININ 21683 [facility] E BLOOD 6 [facility] INC INC COLLECTIO 28500 [facility] N VENOUS 6 [facility] [place] [address] [facility] UREA 6 [facility] NITROGEN INC INC QUANTITAT KEMI CT THORAX 76558 [facility] [place] ALL W/O 6 MEDICAL CONTRAST IMAGING MATERIAL ASS PRTBLE E0431 [facility] LONG GASEOUS 6 HOME HOME O2 SYS MEDICAL MEDICAL RENT; EQUIPME EQUIPME FLWMTR HUMIDFR&M ASK O2 CONC 1 E1390 [facility] [place] 6 HOME HOME 85%/>02 MEDICAL MEDICAL CONC AT EQUIPME EQUIPME PRSC FLW RATE THROMBOPL 46171 [facility] ASTIN 6 [facility] TIME INC INC PARTIAL PLASMA/WH OLE BLOOD CULTURE 74571 [facility] BACTERIAL 6 [facility] INC INC QUANTTATI VE COLONY COUNT URINE RADIOLOGI 89351 [facility] C 6 MEDICAL EXAMINATI IMAGING ON CHEST ASS SINGLE VIEW FRONTAL COMPREHEN 35788 [facility] SIVE 6 [facility] METABOLIC INC INC PANEL PROTHROMB 46137 [facility] IN TIME 6 [facility] INC INC THER 26511 T[facility] PROPH/DX 6 [facility] NJX IV INC INC PUSH SINGLE/1S T SBST/[place] [address] LEEANN [facility] ALL ABDOMEN & 6 MEDICAL PELVIS IMAGING W/O ASS CONTRAST MATERIAL NATRIURET 50554 [facility] IC 6 [facility] PEPTIDE INC INC BLOOD 91314 [facility] COUNT 6 [facility] COMPLETE INC INC AUTO&AUTO DIFRNTL WBC URNLS DIP 96221 [facility] 6 [facility] STICK/TAB INC INC LET REAGENT AUTO MICROSCOP Y INJECTION J1040 JULIET CH[facility] 1 DON DON METHYLPRE DNISOLONE ACETATE 80 MG PHRM Q0513 YOUR YOUR DISPENSIN 1 PHARMACY PHARMACY G FEE [employer] INHALATIO N RX; PER 30 DAYS ALBUTEROL J7620 YOUR YOUR TO 2.5 1 PHARMACY PHARMACY [employer] IPRATROPI UM BROM TO 0.5 MG ADMN SET A7003 YOUR YOUR SM VOL 1 PHARMACY PHARMACY NONFILTR [employer] PNEUMAT NEBULIZR DISPBL URNLS DIP 62556 JULIET CHUNG 1 DON DON STICK/TAB LET [...] 85%/>02 EQUIP. L EQUIP. L CONC AT [facility] FLW RATE O2 CONC 1 E1390 [facility] [place] 0 HOME MED HOME MED 85%/>02 EQUIP. L EQUIP. L CONC AT [facility] FLW RATE PRTBLE E0431 [facility] LONG GASEOUS 0 HOME MED HOME MED O2 SYS EQUIP. L EQUIP. L RENT; FLWMTR HUMIDFR&M ASK BLOOD 21681 [facility] COUNT 0 [facility] COMPLETE INC INC AUTO&AUTO DIFRNTL WBC OBSERVATI 20275 JULIET CHUNG ON CARE 0 DON DON DISCHARGE MANAGEMEN T TX PROC G0238 [facility] IMPRV 0 [facility] RESP INC INC FUNCT NOT G0237 FCE-FCE 15MIN COLLECTIO 80195 [facility] N VENOUS 0 [facility] BLOOD INC INC VENIPUNCT URE LEVEL III 70164 PATHOLOGY PATHOLOGY SURG 0 & & PATHOLOGY CYTOLOGY CYTOLOGY LAB LAB GROSS&BOY ROSCOPIC EXAM COLLECTIO 16725 [facility] N VENOUS 0 [facility] BLOOD INC INC VENIPUNCT URE TX PROC G0238 [facility] IMPRV 0 [facility] RESP INC INC FUNCT NOT G0237 FCE-FCE 15MIN BASIC 04841 [facility] METABOLIC 0 [facility] [place] [address] [facility] ABDOMINAL 0 [facility] REAL INC INC TIME W/IMAGE LIMITED BLOOD 19747 [facility] COUNT 0 [facility] COMPLETE INC INC AUTO&AUTO DIFRNTL WBC INITIAL 36319 [facility] 0 DANITA SINGH CARE/DAY PSC 50 MINUTES LAPAROSCO 50604 [facility] PY SURG 0 AARONBETSEY SINGH CHOLECYST PSC ECTOMY ANES 72644 [facility] BREEDING INTRAPERI 0 ANESTH SEAN TONEAL OF THE UPPER BLUE ABDOMEN W/[place] [address] [facility] LIPASE 0 [facility] INC INC THER 59845 [facility] PROPH/DX 0 [facility] NJX IV INC INC PUSH SINGLE/1S T SBST/DRUG THERAPEUT 65830 [facility] IC 0 [facility] INJECTION INC INC IV PUSH EACH NEW DRUG BLOOD 26096 [facility] COUNT 0 [facility] COMPLETE INC INC AUTO&AUTO DIFRNTL WBC INITIAL 40724 CHUNGFredy CHUNG OBSERVATI 0 DON DON ON CARE/DAY [address] PELVIS 22855 [facility] W/O 0 [facility] CONTRAST INC INC MATERIAL 3D 22730 [facility] RENDERING 0 [facility] INC INC W/INTERP& POSTPROC DIFF WORK STATION COMPREHEN 04118 [facility] SIVE 0 [facility] [place] [address] [facility] AMYLASE 0 [place] [address] [facility] ABDOMEN 0 [facility] W/O INC [facility] G0378 [facility] OBSERVATI 0 [facility] ON INC INC SERVICE PER HOUR RADIOLOGI 69427 [facility] CARDIOTHO CHEST 2 RACIC VIEWS SURGI FRONTAL&L ATERAL ADMINISTR G0009 JULIET CHUNG ATION OF 0 DON DON PNEUMOCOC KAISER VACCINE PPSV23 92237 JULIET CHUNG VACCINE 2 0 DON DON YRS OR OLDER FOR SUBQ/IM USE PRTBLE E0431 [facility] GASEOUS 0 HOME MED HOME MED O2 SYS EQUIP. L EQUIP. L RENT; FLWMTR HUMIDFR&M ASK O2 CONC 1 E1390 [facility] LONG DEL PORT 0 HOME MED HOME MED 85%/>02 EQUIP. L EQUIP. L CONC AT [facility] FLW RATE RADIOLOGI 09864 CENTRAL TERRELL C EXAM 0 RADIOLOGY ELYSSA CHEST 2 ASSOC VIEWS FRONTAL&L ATERAL RADIOLOGI 94006 CENTRAL BARRERA MAR C 0 RADIOLOGY EXAMINATI ASSOC ON CHEST SINGLE VIEW FRONTAL RADIOLOGI 53430 CENTRAL OSULLIVAN ADA C 0 RADIOLOGY EXAMINATI ASSOC ON CHEST SING[place] VIEW FRONTAL RADIOLOGI 84292 CENTRAL OSLULIVAN ADA C 0 RADIOLOGY EXAMINATI ASSOC ON CHEST SING[place] VIEW FRONTAL RADEX 17425 CENTRAL TERRELL ABDOMEN 1 0 RADIOLOGY ELYSSA ASSOC ANTEROPOS TERIOR VIEW RADIOLOGI 25067 CENTRAL RICE THO C 0 RADIOLOGY EXAMINATI ASSOC ON CHEST SINGLE VIEW FRONTAL LEVEL 91567 CHIPPS BENSEMA SURG 0 KRIS & MAR PATHOLOGY DUBILIER GROSS&BOY ROSCOPIC EXAM RADIOLOGI 03918 CENTRAL PIERRE J C 0 RADIOLOGY EXAMINATI ASSOC [place] [address] CHIPPS BENSEMA SURG 0 KRIS & MAR PATHOLOGY DUBILIER GROSS&BOY ROSCOPIC EXAM LEVEL V 15030 CHIPPS BENSEMA SURG 0 KRIS & MAR PATHOLOGY DUBILIER GROSS&BOY ROSCOPIC EXAM PATH 53393 CHIPPS BENSEMA CONSLTJ 0 KRIS & MAR SURG 1ST DUBILIER BLK FROZEN SCTJ 1 SPEC RMVL LUNG 13996 GNOSTICISM UMBERTO GAR OTHER 0 CARDIOTHO THAN RACIC PNEUMONEC SURGI BRENDA 1 LOBE LOBECT THORCOM 90630 GNOSTICISM IMAM MOH [facility] 0 CARDIOTHO W/MEDSTNL RACIC & SURGI REGIONAL LMPHADEC ANES 27691 RINARD SLAVA THORACOTO 0 [place] EDW MY & ANESTHESI THORACOSC A OPY W/1 LUNG VNTJ SPMTRY 27543 GNOSTICISM SAAVEDRA W/VC 0 PULMONARY CESAR EXPIRATOR & Y FAMILIA CRITICAL W/WO MXML VOL VNTJ ECG 77256 [facility] ROUTINE 0 ORTH SILVIA ECG CARDIOLOG W/LEAST Y CONSULT 12 LDS I&R ONLY RADIOLOGI 56646 [facility] C EXAM 0 RADIOLOGY CHEST 2 ASSOC VIEWS FRONTAL&L ATERAL INJECTION J0690 JULIET CHUNG 0 DON DON CEFAZOLIN SODIUM 500 MG IIV3 13655 JULIET CHUNG VACCINE 0 DON DON SPLIT VIRUS 0.5 ML DOSAGE IM USE ADMINISTR G0008 JULIET CHUNG ATION OF 0 DON DON INFLUENZA VIRUS VACCINE COMPUTER- 37153 [place] [facility] AIDED 0 [facility] DETECTION IMAGING ASS SCREENING MAMMOGRAP HY SCREENING G0202 [place] [facility] 0 [facility]ICAL [facility] MAMMOGRAP IMAGING HY CHRISTOPHER ASS INCL CAD WHEN PERFORMD FINE 11902 [facility] NEEDLE 0 RADIOLOGY ASPIRATIO ASSOC N WITH IMAGING GUIDANCE [facility] 92641 GNOSTICISM UMBERTO GAR INCL 0 CARDIOTHO FLUOR RACIC GDNCE DX SURGI W/CELL WASHG SPX CYTP 91325 CHIPPS PICKLESIM SLCTV 0 KRIS & ER JR LAVELL CELL DUBILIER ENHANCEME NT INTERP[place] XCP[place] C/[place] [address] [facility]IP[facility] PICKLESIM SURG 0 KRIS & ER JR LAVELL PATHOLOGY DUBILIER GROSS&BOY ROSCOPIC EXAM CYTP FINE 31227 [facility]IPPS JAVON NDL 0 KRIS & CESAR ASPIRATE DUBILIER IMMT CYTOHIST STD DX 1ST CYTP EVAL 01372 [facility]IP[facility] JAVON FINE 0 KRIS & CESAR NEEDLE DUBILIER ASPIRATE INTERP & REPORT RADIOLOGI 61103 [facility] C 0 RADIOLOGY EXAMINATI [place] [address] [facility] MAR GUIDANCE 0 RADIOLOGY NEEDLE ASSOC PLACEMENT SCR G0123 PATHOLOGY PATHOLOGY CYTOPATH 0 & & CERV/VAG CYTOLOGY CYTOLOGY SCR LAB LAB CYTOTECH UND PHYS SUPV SPMTRY 41049 GNOSTICISM UMBERTO GAR W/VC 0 CARDIOTHO EXPIRATOR RACIC Y FAMILIA SURGI W/WO MXML VOL VNTJ BLOOD 40771 [facility] OCCULT 0 [facility] E ACTV QUAL FECES 1 [place] [address] [facility] INFUSION 0 [facility] THERAPY/P INC INC ROPHYLAXI S /DX 1ST TO [address] THORAX 84157 [place] [facility] W/O 0 [facility] CONTRAST IMAGING MATERIAL ASS MODERATE 37080 [place] [facility] SEDATJ 0 MEDICAL [facility] SAME IMAGING PHYS/QHP ASS EACH ADDL 15 MIN RADIOLOGI 87446 [facility] C EXAM 0 MEDICAL MEDICAL CHEST 2 IMAGING IMAGING VIEWS ASS ASS FRONTAL&L ATERAL FINE 65233 [place] [facility] NEEDLE 0 MEDICAL [place] ASPIRATIO [place] [address] [facility] INFUSION 0 [facility] THERAPY INC INC PROPHYLAX IS/DX EA HOUR 3D 51465 TESSCHARLEEN [facility] RENDERING 0 [facility] INC INC W/INTERP& POSTPROC DIFF WORK STATION CYTP FINE 90903 PATHOLOGY PATHOLOGY NDL 0 & & ASPIRATE CYTOLOGY CYTOLOGY IMMT LAB LAB CYTOHIST STD DX 1ST CYTP EVAL 16739 PATHOLOGY PATHOLOGY FINE 0 & & NEEDLE CYTOLOGY CYTOLOGY ASPIRATE LAB LAB INTERP & [place] [address] [place] [facility] GUIDANCE 0 MEDICAL [facility] NEEDLE IMAGING PLACEMENT ASS MODERATE 67046 [place] [facility] SEDATJ 0 MEDICAL [facility]LE[facility] SAME IMAGING PHYS/QHP ASS 5/>YRS INIT 30 MIN THROMBOPL 43359 [facility] ASTIN 0 [facility] TIME INC INC PARTIAL PLASMA/WH OLE BLOOD COLLECTIO 44519 [facility] N VENOUS 0 [facility] [place]LOOD [place] [address] [facility] UREA 0 [facility] NITROGEN INC INC QUANTITAT KEMI CREATININ 61404 [facility] E BLOOD 0 [facility] INC INC PROTHROMB 88185 [facility] IN TIME 0 [facility] INC INC BLOOD 75210 TESS TESS COUNT 0 [facility] COMPLETE INC INC AUTO&AUTO DIFRNTL WBC BLOOD 53955 [facility] COUNT 0 [facility] COMPLETE INC INC AUTO&AUTO DIFRNTL WBC BASIC 40528 [facility] METABOLIC 0 [facility] PANEL INC INC CALCIUM TOTAL 3D 70677 TESS HENDRICKSON RENDERING 0 [facility] INC INC W/INTERP& POSTPROC DIFF WORK STATION RADEX 25135 [place] [facility] RIBS UNI 0 MEDICAL [facility] W/POSTERO IMAGING ANT CH ASS MINIMUM [address] THORAX 20416 [place] [facility] 0 MEDICAL ARLETT[facility] W/CONTRAS IMAGING T ASS MATERIAL INJECTION J1040 JULIET CHUNG 0 DON DON METHYLPRE DNISOLONE ACETATE 80 MG SCANNING 88272 [facility] OPHTHALMI 0 C IMAGING POSTERIOR SGM UNI OPHTH 68760 [facility] MEDICAL 0 XM&EVAL COMPRHNSV ESTAB PT 1/> RADEX 06684 [place] ANTOINO, FOOT 0 MEDICAL BE P COMPLETE IMAGING MINIMUM 3 [place] [address] PATT PLUMMER PHLX/PHLG 0 EMERGENCY III, OTH/THN SERVICES NINI GRT TOE W/O MANJ ASSOCIATE S INJECTION J1040 JULIET CHUNG, 0 DON R DON R METHYLPRE DNISOLONE ACETATE 80 MG INJECTION J1040 JULIET CHUNG, 0 DON R DON R METHYLPRE DNISOLONE ACETATE 80 MG ECG 85391 [facility] PL[facility] ROUTINE 0 EMERGENCY III, ECG SERVICES NINI W/LEAST 12 LDS ASSOCIATE I&[place] [address] [facility] TROPONIN 0 [facility] QUANTITAT INC INC KEMI CREATINE 51432 [facility] KINASE 0 [facility] TOTAL INC INC ECG 13484 [facility] ROUTINE 0 [facility] ECG INC INC W/LEAST 12 LDS TRCG ONLY W/O I&R CREATINE 96528 [facility] KINASE MB 0 [facility] FRACTION INC INC ONLY INJECTION J3420 JULIET CHUNG VIT B-12 9 DON R DON R CYANOCOBA MAYANK TO 1000 MCG INJECTION J1040 JULIET CHUNG 9 DON R DON R METHYLPRE DNISOLONE ACETATE 80 MG INFLUENZA G9141 JULIET CHUNG A H1N1 9 DON R DON R IMMUNIZAT ION ADMINISTR ATION LIPID 23206 [facility] OF PANEL 9 [facility] GLUC BLD 23653 [facility] MNTR 9 [facility] CLE[facility] ACCT FDA SPEC HOME USE BLOOD 11613 [facility] OCCULT 9 [facility] E ACTV BANK ACCT QUAL FECES 1 DETER SCR G0123 PATHOLOGY PATHOLOGY CYTOPATH 9 & & CERV/VAG CYTOLOGY CYTOLOGY SCR LAB LAB CYTOTECH UND PHYS SUPV IIV3 49388 JULIET CHUNG, VACCINE 9 DON R DON R SPLIT VIRUS 0.5 ML DOSAGE IM USE ADMINISTR G0008 JULIET CHUNG, ATION OF 9 DON R DON R INFLUENZA VIRUS VACCINE 3D 31964 XIOMY STAUFFER, RENDERING 9 MAURY MAURY W/INTERP & POSTPROCE [place]PERVIS[place] MRI 86192 XIOMY STAUFFER SPINAL 9 MAURY MAURY CANAL CERVICAL W/O CONTRAST MATRL RADEX 06202 JULIET CHUNG, SPINE 9 DON R DON R CERVICAL 4 OR 5 VIEWS COMPUTER- 16406 [facility] AIDED 9 [facility] DETECTION INC INC SCREENING MAMMOGRAP HY SCREENING 87118 [facility] 9 [facility] MAMMOGRAP INC INC HY BILATERAL ADMN SET A7005 YOUR YOUR W/SM VOL 9 PHARMACY PHARMACY NONFILTR [facility] NEBULIZR NON-DISPB L PHRM Q0513 YOUR YOUR DISPENSIN 9 PHARMACY PHARMACY G FEE [employer] INHALATIO N RX; PER 30 DAYS ALBUTEROL J7620 YOUR YOUR TO 2.5 9 PHARMACY PHARMACY [employer] IPRATROPI UM BROM TO 0.5 MG RADIOLOGI 19582 [facility] C EXAM 9 [facility] CHEST 2 INC INC VIEWS FRONTAL&L ATERAL INJECTION J1040 JULIET CHUNG, Star DON R DON R METHYLPRE DNISOLONE ACETATE 80 MG INJECTION J1040 JULIET CHUNG 9 DON R DON R METHYLPRE DNISOLONE ACETATE 80 MG OPHTH 58541 DAMON, DAMON, MEDICAL 9 TIM A TIM A XM&VALENTINA BAE NEW PT 1/> VST INJECTION J1040 JULIET CHUNG 9 DON R DON R METHYLPRE DNISOLONE ACETATE 80 MG INJECTION J3420 JULIET CHUNG, VIT B-12 9 DON R DON R CYANOCOBA MAYANK TO 1000 MCG INJECTION J1040 JULIET CHUNG 9 DON R DON R METHYLPRE DNISOLONE ACETATE 80 MG MAMMOGRAP 07185 [facility] HY 9 [facility] UNILATERA INC INC L INJECTION J1040 JULIET CHUNG 9 DON R DON R METHYLPRE DNISOLONE ACETATE 80 MG RADEX 84266 [facility] SPINE 8 [facility] LUMBOSACR INC INC AL MINIMUM 4 VIEWS INJECTION J1040 JULIET CHUNG, Maria DON R DON R METHYLPRE DNISOLONE ACETATE 80 MG IIV3 59789 JULIET CHUNG, VACCINE 8 DON R DON R SPLIT VIRUS 0.5 ML DOSAGE IM USE ADMINISTR G0009 JULIET CHUNG, ATION OF 8 DON R DON R PNEUMOCOC [facility] VACCINE ADMINISTR G0008 JULIET CHUNG, ATION OF 8 DON R DON R INFLUENZA VIRUS VACCINE PPSV23 11767 JULIET CHUNG, VACCINE 2 8 DON R DON R YRS OR OLDER FOR SUBQ/IM USE RADEX 58873 JULIET CHUNG, RIBS UNI 8 DON R DON R W/POSTERO ANT CH MINIMUM 3 VIEWS INJECTION J1040 JULIET CHUNG, Maria DON R DON R METHYLPRE DNISOLONE ACETATE 80 MG INJECTION J1040 JULIET CHUNG, Maria DON R DON R METHYLPRE DNISOLONE ACETATE 80 MG SCREENING 48785 [place] [facility], 8 MEDICAL MAURY MAMMOGRAP IMAGING HY ASSOCIATE BILATERAL S COMPUTER- 32951 [place] [facility], AIDED 8 MEDICAL MAURY DETECTION IMAGING ASSOCIATE SCREENING S MAMMOGRAP HY INJECTION J1040 JULIET CHUNG, Maria DON R DON R METHYLPRE DNISOLONE ACETATE 80 MG BLOOD 04329 [facility] OCC[facility] ACTV BANK ACCT QUAL FECES 1 DETER CYTP 00749 [facility] CERV/VAG [address] [place] [address] AUTO THIN [facility] LAYER BANK ACCT PREP MNL SCREEN LIPID 46925 [facility] PANEL [address] [place] [address] BANK ACCT GLUC BLD 76141 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 Y ASSOC STD CV STRS 87731 JOSH ESCALANTE, TST 8 [facility] [place] XERS&/OR CARDIOLOG RX CONT Y ASSOC ECG W/O I&R INITIAL 09986 [facility] ESCALANTE, HOSPITAL 8 [facility] [place] CARE/DAY CARDIOLOG 50 Y ASSOC MINUTES DOPPLER 18792 JOSH ESCALANTE, ECHOCARD 8 [facility] PULSE CARDIOLOG WAVE Y ASSOC W/SPECTRA L DISPLAY ECHO 90126 JOSH ESCALANTE, TRANSTHOR 8 [facility] AC R-T 2D CARDIOLOG W/WO Y ASSOC M-MODE REC COMP DOP 06786 JOS[facility] ESCALANTE, ECHOCARD 8 [facility] COLOR CARDIOLOG FLOW Y ASSOC VELOCITY MAPPING GROUND A0425 [facility] PER SERVICE SERVICE STATUTE MILE BASIC 09955 [facility] METABOLIC 8 [facility] PANEL INC INC CALCIUM TOTAL THROMBOPL 57353 [facility] ASTIN 8 [facility] TIME INC INC PARTIAL PLASMA/WH OLE BLOOD RADIOLOGI 43102 [facility] C 8 [facility] EXAMINATI INC INC [place] [address] [facility] TROPONIN 8 [facility] QUANTITAT INC INC KEMI BLOOD 82113 [facility] COUNT 8 [facility] COMPLETE INC INC AUTO&AUTO DIFRNTL WBC AMB A0427 [facility] SERV[facility] 8 AMBULANCE AMBULANCE ALS SERVICE SERVICE EMERGENCY TRANSPORT LEVEL 1 COLLECTIO 52498 [facility] N VENOUS 8 [facility] BLOOD INC INC VENIPUNCT URE CREATINE 64065 [facility] KINASE MB 8 [facility] FRACTION INC INC ONLY THER 54098 [facility] PROPH/DX 8 [facility] NJX EA INC INC SEQL IV PUSH SBST/DRUG ECG 72916 JOSH ESCALANTE, ROUTINE 8 [facility] ECG CARDIOLOG W/LEAST Y ASSOC 12 LDS I&R ONLY CREATINE 81827 TESS TESS KINASE 8 [facility] TOTAL INC INC PROTHROMB 24066 [facility] IN TIME 8 [facility] INC INC THER 11177 T[facility] PROPH/DX 8 [facility] NJX IV INC INC PUSH 1ST SBST/DRUG ECG 04726 TESS TESS ROUTINE 8 [facility] ECG INC INC W/LEAST 12 LDS TRCG ONLY W/O I&R ECG 52159 TESS TESS ROUTINE 8 [facility] ECG INC INC W/LEAST 12 LDS TRCG ONLY W/O I&R RADIOLOGI 47001 TESS TESS C EXAM 8 [facility] CHEST 2 INC INC VIEWS FRONTAL&L ATERAL ECG 39150 TESS LÓPEZ, ROUTINE 8 [facility] W/LEAST PROF SERV 12 LDS I&R ONLY INJECTION J1040 JULIET CHUNG, Maria ARRIETA R DON R METHYLPRE DNISOLONE ACETATE 80 MG PHRM Q0513 YOUR YOUR DISPENSIN 8 PHARMACY PHARMACY G FEE [employer] INHALATIO N RX; PER 30 DAYS ADMN SET A7003 YOUR YOUR SM VOL 8 PHARMACY PHARMACY NONFILTR [employer] PNEUMAT NEBULIZR DISPBL ALBUTEROL J7620 YOUR YOUR TO 2.5 8 PHARMACY PHARMACY MG & [employer] IPRATROPI UM BROM TO 0.5 MG INJECTION [...] Date Code Location Performer Type Date OFFICE 51540 MOISES ROBIN OUTPATIEN 7 7 T VISIT ORTHOPAED 15 ICS PSC MINUTES OFFICE 99448 [facility] MAURICE OUTPATIEN 7 7 PHYSICIAN T VISIT 5 S GROUP MINUTES OFFICE 49618 [facility] MAURICE OUTPATIEN 7 7 PHYSICIAN T VISIT S GROUP 10 MINUTES HOSPITAL TESS - 7 7 [facility] INPATIENT [facility] EMERGENCY 50721 RIKY ROJAS 7 7 PHYSICIAN [facility] T VISIT HIGH/URGE NT SEVERITY HOSPITAL TESS - 7 7 [facility] OUTPATIEN [facility] TESS - 7 7 [facility] INPATIENT [facility] EMERGENC[facility] 94162 RIKY PASCULA DEPT 7 7 PHYSICIAN VISIT S, [facility] HIGH SEVERITY& [facility]62 [facility] 7 HEALTH T VISIT MEDICAL 15 GROUP MINUTES HOSPITAL TESS - 7 7 [facility] 44120 TESS 7 7 [facility] T VISIT LOW/MODER SEVERITY EMERGENCY 24462 RIKY TAPIA DEPT 7 7 PHYSICIAN VISIT S, [facility] HIGH SEVERITY& THREAT [facility] TESS - 6 6 [facility]PAT[facility] TESS - 6 6 [facility] OFFICE 47023 [facility] MELANIE OUTPATIEN 6 6 PHYSICIAN MAT T VISIT S GROUP 25 MINUTES HOSPITAL TESS - 6 6 [facility] OUTPATIEN [facility] HOSPITAL TESS - 6 6 [facility] OUTPATIEN [facility] EMERGENCY 17746 TESS 6 6 [facility] T VISIT MODERATE SEVERITY EMERGENCY 32650 RIKY SHEEHAN 6 6 PHYSICIAN U [facility], [facility] T VISIT HIGH/URGE NT SEVERITY OFFICE 11328 JULIET CHUNG OUTPATIEN 1 1 DON DON T VISIT 15 MINUTES OFFICE 98557 JULIET CHUNG OUTPATIEN 1 1 DON DON T VISIT 15 MINUTES OFFICE 90029 JULIET CHUNG OUTPATIEN 1 1 DON DON T VISIT 15 MINUTES OFFICE 37708 JULIET CHUNG OUTPATIEN 0 0 DON DON T VISIT 15 MINUTES HOSPITAL TESS - 0 0 [facility] OUTPATIEN INC T EMERGENCY 07422 TESS 0 0 [facility] DEPARTMEN INC T VISIT HIGH/URGE NT SEVERITY EMERGENCY 21715 PATT DIAZEY DEPT 0 0 EMERGENCY BOY VISIT SERVICES HIGH SEVERITY& THREAT FUNJ OFFICE 97912 JULIET CHUNG OUTPATIEN 0 0 DON DON T VISIT 15 MINUTES OFFICE 01415 JULIET CHUNG OUTPATIEN 0 0 DON DON T VISIT 15 MINUTES OFFICE 74740 GNOSTICISM IMAM COLE OUTPATIEN 0 0 CARDIOTHO T VISIT RACIC 10 SURGI [facility] TESS - 0 0 [facility] OUTPATIEN INC T OFFICE 32217 GNOSTICISM UMBERTO GAR OUTPATIEN 0 0 CARDIOTHO T VISIT RACIC 10 SURGI MINUTES PERIODIC 58626 [facility] PREVENTIV 0 0 [facility] E MED EST CENTER CENTER PATIENT 66YRS& OLDER OFFICE 55336 GNOSTICISM UMBERTO GAR OUTPATIEN 0 0 CARDIOTHO T NEW 60 RACIC MINUTES [facility]G [facility]PITAL TESS - 0 0 [facility] OUTPATIEN INC T [facility] TESS - 0 0 [facility] OUTPATIEN INC T OFFICE 35493 JULIET CHUNG OUTPATIEN 0 0 DON DON T VISIT 15 MINUTES EMERGENCY 39348 PATT FRANCIS BAB DEPT 0 0 EMERGENCY VISIT SERVICES HIGH SEVERITY& THREAT [facility] TESS - 0 0 [facility] OUTPATIEN INC T EMERGENCY 61023 TESS 0 0 [facility] DEPARTMEN INC T VISIT MODERATE SEVERITY OFFICE 30516 JULIET CHUNG OUTPATIEN 0 0 DON DON T VISIT 15 MINUTES OFFICE 36616 CHUNG, CHUNG, OUTPATIEN 0 0 DON R DON R T VISIT 15 MINUTES OFFICE 29383 CHUNG CHUNG, OUTPATIEN 0 0 DON R DON R T VISIT 15 MINUTES EMERGENCY 40695 PATT PLUMMER 0 0 EMERGENCY III, DEPARTMEN SERVICES NINI T VISIT MODERATE ASSOCIATE SEVERITY [facility] TESS - 0 0 [facility] OUTPATIEN INC T EMERGENCY 79042 TESS 0 0 [facility] DEPARTMEN INC T VISIT LOW/MODER SEVERITY OFFICE 17549 JULIET CHUNG, OUTPATIEN 0 0 DON R DON R T VISIT 15 MINUTES OFFICE 55851 CHUNG, CHUNG, OUTPATIEN 0 0 DON R DON R T VISIT 15 MINUTES EMERGENCY 61840 PATT PLUMMER 0 0 EMERGENCY III, DEPARTMEN SERVICES NINI T VISIT HIGH/URGE ASSOCIATE NT [facility] TESS - 0 0 [facility] OUTPATIEN INC T EMERGENCY 56699 TESS 0 0 [facility] DEPARTMEN INC T VISIT LOW/MODER SEVERITY OFFICE 02169 JULIET CHUNG, OUTPATIEN 9 9 DON R DON R T VISIT 15 MINUTES OFFICE 91191 [facility] TESS OUTPATIEN 9 9 HEALTH CO HEALTH T VISIT [facility] 15 BANK ACCT MINUTES PERIODIC 00420 DHS/CO TESS PREVENTIV 9 9 [facility] PATIENT BANK ACCT 66YRS& OLDER OFFICE 80586 JULIET CHUNG OUTPATIEN 9 9 DON R DON R T VISIT 15 MINUTES HOSPITAL TESS - 9 9 [facility] OUTPATIEN INC T HOSPITAL TESS - 9 9 [facility] OUTPATIEN INC T EMERGENCY 96825 PATT AQUINO, 9 9 EMERGENCY ANTONI R DEPARTMEN SERVICES T VISIT HIGH/URGE ASSOCIATE NT S SEVERITY EMERGENCY 39424 TESS 9 9 [facility] DEPARTMEN INC T VISIT LOW/MODER SEVERITY OFFICE 62521 JULIET CHUNG OUTPATIEN 9 9 DON R DON R T VISIT 15 MINUTES OFFICE 22153 JULIET CHUNG OUTPATIEN 9 9 DON R DON R T VISIT 15 MINUTES OFFICE 95075 JULIET CHUNG OUTPATIEN 9 9 DON R DON R T VISIT 15 MINUTES OFFICE 31436 JULIET CHUNG OUTPATIEN 9 9 DON R DON R T VISIT 15 MINUTES HOSPITAL TESS - 9 9 [facility] OUTPATIEN INC T OFFICE 00296 JULIET CHUNG OUTPATIEN 9 9 DON R DON R T VISIT 15 MINUTES OFFICE 42205 JULIET CHUNG OUTPATIEN 8 8 DON R DON R T VISIT 15 MINUTES OFFICE 86316 JULIET CHUNG OUTPATIEN 8 8 DON R DON R T VISIT 15 MINUTES EMERGENCY 23509 TESS 8 8 [facility] DEPARTMEN INC T VISIT LOW/MODER SEVERITY HOSPITAL TESS - 8 8 [facility] OUTPATIEN INC T OFFICE 66716 JULIET CHUNG OUTPATIEN 8 8 DON R DON R T VISIT 15 MINUTES OFFICE 56272 JULIET CHUNG OUTPATIEN 8 8 DON R DON R T VISIT 15 MINUTES OFFICE 64774 JULIET CHUNG OUTPATIEN 8 8 DON R DON R T VISIT 15 MINUTES HOSPITAL TESS - 8 8 [facility] OUTPATIEN INC T OFFICE 05421 JULIET CHUNG OUTPATIEN 8 8 DON R DON R T VISIT 15 MINUTES [facility] 28303 DHS/CO TESS PREVENTIV 8 8 [facility] PATIENT BANK ACCT 66YRS& OLDER EMERGENCY 08495 TESS DEPT 8 8 [facility] VISIT INC HIGH SEVERITY& THREAT FUNCJ EMERGENCY 47984 GENEVIEVE FRANCIS, 8 8 [facility] T VISIT ON HIGH/URGE NT SEVERITY HOSPITAL TESS - 8 8 [facility] OUTPATIEN INC HOSPITAL TESS - 8 8 [facility] OUTPATIEN INC T OFFICE 84316 Johan WOODWARD 8 8 CARE G T VISIT ASSOCIATE 15 S MINUTES OFFICE 02969 Johan WOODWARDEN 8 8 CARE G T VISIT ASSOCIATE 15 S MINUTES OFFICE 10200 JULIET CHUNG OUTPATIEN 8 8 DON R DON R T VISIT 15 MINUTES OFFICE 94418 JULIET CHUNG OUTPATIEN 8 8 DON R DON R T VISIT 15 MINUTES OFFICE 24154 JULIET CHUNG OUTPATIEN 8 8 DON R DON R T VISIT 15 MINUTES OFFICE 01248 JULIET CHUNG OUTPATIEN 8 8 DON R DON R T VISIT 15 MINUTES
--- OUTSIDE RECORDS SUMMARY | 2017-01-18 10:23 | External Medical Summary Rpt ---
Author Author , Organization [employer] Address Unknown Phone Unavailable Purpose Continuity of Care Document - 04-11-2003 through 2016 Immunization Name Date Route CVX Reacti Commen Provid Is Given on t er Refuse d Tdap, Histor UKHC1 No Adsorb 2013 ical ed Inform ation - Source Unspec ified Td Histor H149 No (adult 2002 ical ), Inform adsorb ation ed - Source Unspec ified
[2017-01-18 10:31] VITALS: BP 145/67
== END 2017-01-18 10:32 | disposition home or self-care (01) ==
LOC: ER 09:05
PROVIDERS: Emergency Medicine
DX: R09.1 Pleurisy (principal); I25.10 Atherosclerotic heart disease of native coronary artery without angina pectoris; I10 Essential (primary) hypertension; I48.2 Chronic atrial fibrillation